=== PATIENT | male | born 1935 | race Caucasian/White ===

== ENCOUNTER → 2016-05-29 | Outpatient (CLI) | payer MEDICARE, BC ==
[2016-05-29 13:22] LABS: INR 1.7 (<1.1); Prothrombin Time 16.4 sec (9.0-12.0)
== END ==
LOC: LABWHC1 13:02
PROVIDERS: ATTEND Dentist Oral and Maxillofacial Surgery
DX: D68.9 Coagulation defect, unspecified (principal)
CPT/HCPCS: 36415; 85610

== ENCOUNTER → 2016-07-28 | Outpatient (CLI) | payer MEDICARE, BC ==
[2016-07-28 09:18] LABS: INR 1.3 (<1.1); Prothrombin Time 12.8 sec (9.0-12.0)
== END | disposition home or self-care (01) ==
LOC: LABWHC1 08:55
PROVIDERS: ATTEND Dentist Oral and Maxillofacial Surgery
DX: D68.9 Coagulation defect, unspecified (principal); Z51.81 Encounter for therapeutic drug level monitoring
CPT/HCPCS: 36415; 85610

== ENCOUNTER 2018-08-13 16:32 | Inpatient (IN) | payer MEDICARE, BC ==
--- NOTE | 2018-08-13 17:20 | ED ---
General Adult HPI - General Chief complaint: Shortness of Breath Stated complaint: Diff Breathing Time Seen by Provider: 08/13/18 17:02 Source: patient, family, RN notes reviewed, old records reviewed Mode of arrival: wheelchair Limitations: no limitations - History of Present Illness Initial comments: 83-year-old male presenting with dyspnea and need for supplemental oxygen. Patient is scheduled for an outpatient MRI of the brain and thoracic spine today. He was presenting to the emergency department with request for outpatient home O2. He has history of COPD and stage III lung cancer. He states his symptoms have been progressive over the past several weeks. He was told by [facility] that he had a portion of his right lung collapsed. He had a biopsy 3 weeks ago and initially had hemoptysis this has resolved. No fever or chills. No chest pain. - Related Data Home Medications Medication Instructions Recorded Confirmed Allopurinol [Zyloprim] 100 mg PO DAILY 07/24/15 08/13/18 Digoxin [Lanoxin] 250 mcg PO DAILY 07/24/15 08/13/18 Fluticasone/Salmeterol [Advair 1 puff INHALATION RT-BID 07/24/15 08/13/18 250-50 Diskus] Metoprolol Succinate (ER) [Toprol 50 mg PO HS 07/24/15 08/13/18 Xl] Tiotropium [place] [Spiriva] 1 puff INHALATION RT-HS 07/24/15 08/13/18 Ubidecarenone [Co Q-10] 200 mg PO HS 07/24/15 08/13/18 Warfarin Sodium 2 mg PO SUTUWETHFRSA 07/24/15 08/13/18 Carboxymethylcellulose Sodium 1 drop BOTH EYES HS 08/13/18 08/13/18 [Refresh Tears] Fluticasone Nasal [place] [Flonase 1 spray EA NOSTRIL DAILY 08/13/18 08/13/18 Nasal [place]] Losartan Potassium 100 mg PO DAILY 08/13/18 08/13/18 Simvastatin [Zocor] 20 mg PO HS 08/13/18 08/13/18 Warfarin [Coumadin] 3 mg PO MO 08/13/18 08/13/18 amLODIPine [Norvasc] 5 mg PO HS 08/13/18 08/13/18 Allergies Allergy/AdvReac Type Severity Reaction Status Date / Time Penicillins Allergy Unknown Itching Verified 08/13/18 17:21 Review of Systems ROS Statement: Those systems with pertinent positive or pertinent negative responses have been documented in the HPI. ROS Other: All systems not noted in ROS Statement are negative. Past Medical History Past Medical History: Atrial Fibrillation, Cancer, COPD, Hyperlipidemia, Hypertension, Osteoarthritis (OA), Pneumonia Additional Past Medical History / Comment(s): HX OF SKIN CANCER, GOUT, SOB WITH ACTIVITY, IRREGULAR History of Any Multi-Drug Resistant Organisms: MRSA Date of last positivie culture/infection: 2012? MDRO Source:: LEFT ELBOW Past Surgical History: Orthopedic Surgery Additional Past Surgical History / Comment(s): LEFT ELBOW SURGERY, lung/lymph biopsy Past Anesthesia/Blood Transfusion Reactions: No Reported Reaction Past Psychological History: No Psychological Hx Reported Smoking Status: Former smoker Past Alcohol Use History: None Reported Past Drug Use History: None Reported - Past Family History Father Family Medical History: Cancer Additional Family Medical History / Comment(s): LUNG & LIVER CANCER General Exam Limitations: no limitations General appearance: alert, in no apparent distress Head exam: Present: atraumatic, normocephalic Eye exam: Present: normal appearance, PERRL ENT exam: Present: normal exam Neck exam: Present: normal inspection. Absent: tenderness, meningismus Respiratory exam: Present: respiratory distress, wheezes, decreased breath sounds Cardiovascular Exam: Present: regular rate, irregular rhythm GI/Abdominal exam: Present: soft. Absent: distended, tenderness, guarding Extremities exam: Present: normal inspection, normal capillary refill. Absent: pedal edema, calf tenderness Neurological exam: Present: alert, oriented X3, CN II-XII intact. Absent: motor sensory deficit Psychiatric exam: Present: normal affect, normal mood Skin exam: Present: warm, dry, intact. Absent: cyanosis, diaphoretic Course Vital Signs 08/13/18 08/13/18 08/13/18 16:46 17:36 20:00 Temperature 98.2 F Pulse Rate 72 75 73 Respiratory 20 18 18 Rate Blood Pressure 103/69 112/65 117/63 O2 Sat by Pulse 94 L 96 91 L Oximetry EKG Findings - EKG Comments: EKG Findings:: EKG: Atrial fibrillation, low voltage no ST segment elevation. Rate is 78, QRS duration 106, QTC 371 Medical Decision Making - Medical Decision Making 83-year-old male presenting to the emergency department with dyspnea, history of lung cancer and COPD. Dyspnea has progressed over weeks. He was told to come to the emergency department with need for home oxygen. Patient has diminished breath sounds bilaterally, wheezing. Pulse oximetry is 89-92 on room air. Chest x-ray showing concern for infiltrate and recurrent tumor. He has mild leukocytosis 0.3, normal electrolytes. Patient is sent for his outpatient MRI in the emergency department, these results are pending. He will be admitted for further treatment of COPD. He will likely require home oxygen at the time of discharge. - Lab Data Result diagrams: 08/13/18 Unknown 08/13/18 Unknown Lab Results 08/13/18 08/13/18 Range/Units Unknown Unknown WBC 12.3 H (3.8-10.6) k/uL RBC 4.57 (4.30-5.90) m/uL Hgb 13.3 (13.0-17.5) gm/dL Hct 42.8 (39.0-53.0) % MCV 93.6 (80.0-100.0) fL MCH 29.2 (25.0-35.0) pg MCHC 31.2 (31.0-37.0) g/dL RDW 13.7 (11.5-15.5) % Plt Count 304 (150-450) k/uL Neutrophils % 78 % Lymphocytes % 9 % Monocytes % 9 % Eosinophils % 1 % Basophils % 0 % Neutrophils # 9.6 H (1.3-7.7) k/uL Lymphocytes # 1.1 (1.0-4.8) k/uL Monocytes # 1.1 H (0-1.0) k/uL Eosinophils # 0.1 (0-0.7) k/uL Basophils # 0.1 (0-0.2) k/uL Sodium 141 (137-145) mmol/L Potassium 4.7 (3.5-5.1) mmol/L Chloride 106 (98-107) mmol/L Carbon Dioxide 22 (22-30) mmol/L Anion Gap 13 mmol/L BUN 36 H (9-20) mg/dL Creatinine 1.20 (0.66-1.25) mg/dL Est GFR (CKD-EPI)AfAm 65 (>60 ml/min/1.73 sqM) Est GFR (CKD-EPI)NonAf 57 (>60 ml/min/1.73 sqM) Glucose 97 (74-99) mg/dL Calcium 8.9 (8.4-10.2) mg/dL Total Bilirubin 0.7 (0.2-1.3) mg/dL AST 35 (17-59) U/L ALT 40 (21-72) U/L Alkaline Phosphatase 62 (38-126) U/L Total Protein 6.5 (6.3-8.2) g/dL Albumin 3.2 L (3.5-5.0) g/dL Disposition Clinical Impression: Acute exacerbation of chronic obstructive airways disease Disposition: ADMITTED IP TO THIS [facility] Condition: Stable Is patient prescribed a controlled substance at d/c from ED?: No Referrals: Maylin Munoz DO [Primary Care Provider] - 1-2 days Decision to Admit Reason: Admit from EC Decision Date: 08/13/18 Decision Time: 20:35
[2018-08-13 17:33] LABS: Basophils # (A) 0.1 k/uL (0-0.2); Basophils % (A) 0 %; Eosinophils # (A) 0.1 k/uL (0-0.7); Eosinophils % (A) 1 %; HCT 42.8 % (39.0-53.0); HGB 13.3 gm/dL (13.0-17.5); Lymphocytes # (A) 1.1 k/uL (1.0-4.8); Lymphocytes % (A) 9 %; MCH 29.2 pg (25.0-35.0); MCHC 31.2 g/dL (31.0-37.0); MCV 93.6 fL (80.0-100.0); Mean Platelet Volume 8.1; Monocytes # (A) 1.1 k/uL (0-1.0); Monocytes % (A) 9 %; Neutrophils # (A) 9.6 k/uL (1.3-7.7); Neutrophils % (A) 78 %; Platelet Count 304 k/uL (150-450); RBC 4.57 m/uL (4.30-5.90); RDW 13.7 % (11.5-15.5); WBC 12.3 k/uL (3.8-10.6)
--- NOTE | 2018-08-13 17:37 | XR ---
EXAMINATION TYPE: XR chest 2V DATE OF EXAM: 08/13/2018 COMPARISON: 07/25/2015 HISTORY: TECHNIQUE: Frontal and lateral views of the chest are obtained. FINDINGS: There is diffuse airspace infiltrate in the right lung. There is thickening along the righ t major fissure. There is increased density at the right pulmonary hilum. Heart size is normal. There is no heart failure. Left lung is clear. There is some blunting of right costophrenic angle. IMPRESSION: Pleural thickening and infiltrate on the right side with enlargement right pulmonary hil um that appears new compared to old exam. This could relate to recurrent tumor.
[2018-08-13 18:03] LABS: Albumin 3.2 g/dL (3.5-5.0); Calcium 8.9 mg/dL (8.4-10.2); Potassium 4.7 mmol/L (3.5-5.1); Total Bilirubin 0.7 mg/dL (0.2-1.3); Total Protein 6.5 g/dL (6.3-8.2)
--- NOTE | 2018-08-13 20:05 | MR ---
EXAMINATION TYPE: MR thoracic spine wo/w con DATE OF EXAM: 08/13/2018 COMPARISON: HISTORY: Hx lung ca, Pain CONTRAST: Standard multiplanar, multisequence MRI departmental protocol utilizing 9 mL intravenous Gadavist brinda olinium contrast. FINDINGS: Thoracic vertebra have normal alignment. There is no compression fracture. Thoracic spinal cord has normal signal pattern. There is no evidence of spinal cord mass. I see no focal bone destruc tion. There is right pleural effusion. There is mixed signal 4.5 x 2.5 cm mass in the right paraspinal righ t lower lobe. Exam is limited by limited field of view and motion. The thoracic neural foramina are fairly well-maintained. The posterior elements appear intact. IMPRESSION: There is right pleural effusion. Possible mass in the right paraspinal right lower lobe. No focal bon e destruction. No fracture. No evidence of thoracic osseous metastatic disease.
--- NOTE | 2018-08-13 20:22 | MR ---
EXAMINATION TYPE: MR brain wo/w con DATE OF EXAM: 08/13/2018 COMPARISON: None HISTORY: Hx lung ca, Pain TECHNIQUE: Multiplanar, multisequence images of the brain and brainstem is performed without and with IV contras t, utilizing 9 mL intravenous Gadavist . FINDINGS: There is diffuse cerebral cortical atrophy. There is no mass effect nor midline shift. Ther e is no sign of intracranial hemorrhage. There are scattered small foci of increased signal at the gr ay-white matter junction of both cerebral hemispheres. These measure up to 5 mm in total lumbars appr oximately 15. There are more foci in the right posterior temporal lobe. The brainstem is intact. Ther e is thinning of the corpus callosum. Sella turcica appears normal. There is no evidence of cortical infarct. The contrast images show no pathologic enhancement. There is normal contrast opacification of the romina ous sinuses. There is arterial flow demonstrated in the anterior middle and posterior cerebral arteri es. Optic chiasm appears normal. IMPRESSION: Cerebral atrophy. Mild white matter changes could relate to chronic small vessel ischemia . No evidence of intracranial metastatic disease. Mild right maxillary sinusitis noted.
[2018-08-13] MEDS ORDERED: IPRATROPIUM-ALBUTEROL 3 ML NEB INHALATION PRN (20:32)
[2018-08-14] MEDS ORDERED: SODIUM CHLORIDE 0.9% 1,000 ML IV SCH (01:15)
[2018-08-14] MEDS: ATORVASTATIN 20 MG TAB PO SCH ×2 (01:16→21:38)
[2018-08-14] MEDS: IPRATROPIUM-ALBUTEROL 3 ML NEB INHALATION SCH ×4 (07:31→21:12)
[2018-08-14] MEDS ORDERED: IPRATROPIUM 0.5 MG/2.5 ML NEBU INHALATION SCH (08:00)
[2018-08-14] MEDS: AZITHROMYCIN 500 MG TAB PO SCH (08:31)
[2018-08-14] MEDS ORDERED: predniSONE 20 MG TAB PO SCH (09:00)
[2018-08-14 11:27] VITALS: BMI 24.9
[2018-08-14] MEDS ORDERED: ALPRAZolam 0.25 MG TAB PO PRN (12:12)
--- NOTE | 2018-08-14 12:16 | P.HPIM ---
History of Present Illness This is a pleasant 83 years old male with past medical history of COPD, hyperlipidemia, hypertension, atrial fibrillation on Coumadin and digoxin. Patient presents because of dyspnea for 3 weeks ago and his doctor sent him to the hospital to get oxygen. Patient was not on home oxygen and he was getting short of breath with some cough and little green phlegm. He denies chest pain. No change in urine or bowel habits. No weakness or abnormal sensation, no headache. No fever. No sick contacts. However patient has decreased appetite over the last few days and weeks. Patient is a smoker, he quit about 3 years ago but he still smokes now and then, and he was been smoking a few cigarettes over the last few weeks. He denies alcohol or illicit drugs. He follows with Dr. maki moser as oncologist, and he follows with Dr. Munoz at [facility] in the outpatient setting. Patient is afebrile and dressed Vitas looks stable. He is saturating 94% and 2 L oxygen. Showing mild leukocytosis of 12.3 K. BMP is unremarkable creatinine 1.2 liver enzymes not elevated. EKG showing atrial fibrillation with a rate of 78. He has thoracic MRI showing right pleural effusion with possible months in the right paraspinal right lower lobe, with no evidence of thoracic spine metastatic disease. Brain MRI: Cerebral atrophy, with no evidence of intracranial metastatic disease. Emergency patient was started on prednisone 40 mg daily and Zithromax. And Lipitor. Review of Systems CONSTITUTIONAL: No fever, no malaise, no fatigue. HEENT: No recent visual problems or hearing problems. Denied any sore throat. CARDIOVASCULAR: No orthopnea, PND, no palpitations, no syncope. PULMONARY: No shortness of breath, no cough, no hemoptysis. GASTROINTESTINAL: No diarrhea, no nausea, no vomiting, no abdominal pain. Normoactive bowel sounds. NEUROLOGICAL: No headaches, no weakness, no numbness. HEMATOLOGICAL: Denies any bleeding or petechiae. GENITOURINARY: Denies any burning micturition, frequency, or urgency. MUSCULOSKELETAL/RHEUMATOLOGICAL: Denies any joint pain, swelling, or any muscle pain. ENDOCRINE: Denies any polyuria or polydipsia. Past Medical History Past Medical History: Atrial Fibrillation, Cancer, COPD, Hyperlipidemia, Hypertension, Osteoarthritis (OA), Pneumonia Additional Past Medical History / Comment(s): HX OF SKIN CANCER AND LUNG CA, GOUT History of Any Multi-Drug Resistant Organisms: MRSA Date of last positivie culture/infection: 2012? MDRO Source:: LEFT ELBOW Past Surgical History: Orthopedic Surgery Additional Past Surgical History / Comment(s): LEFT ELBOW SURGERY, lung/lymph biopsy Past Anesthesia/Blood Transfusion Reactions: No Reported Reaction Past Psychological History: No Psychological Hx Reported Smoking Status: Former smoker Past Alcohol Use History: None Reported Additional Past Alcohol Use History / Comment(s): SMOKES 1PPD OR MORE. SMOKING SINCE 16 YEARS OLD- 66 YEARS. Past Drug Use History: None Reported - Past Family History Father Family Medical History: Cancer Additional Family Medical History / Comment(s): LUNG & LIVER CANCER Medications and Allergies Home Medications Medication Instructions Recorded Confirmed Type Allopurinol [Zyloprim] 100 mg PO DAILY 07/24/15 08/13/18 History Digoxin [Lanoxin] 250 mcg PO DAILY 07/24/15 08/13/18 History Fluticasone/Salmeterol [Advair 1 puff INHALATION RT-BID 07/24/15 08/13/18 History 250-50 Diskus] Metoprolol Succinate (ER) [Toprol 50 mg PO HS 07/24/15 08/13/18 History Xl] Tiotropium [place] [Spiriva] 1 puff INHALATION RT-HS 07/24/15 08/13/18 History Ubidecarenone [Co Q-10] 200 mg PO HS 07/24/15 08/13/18 History Warfarin Sodium 2 mg PO SUTUWETHFRSA 07/24/15 08/13/18 History Carboxymethylcellulose Sodium 1 drop BOTH EYES HS 08/13/18 08/13/18 History [Refresh Tears] Fluticasone Nasal [place] [Flonase 1 spray EA NOSTRIL DAILY 08/13/18 08/13/18 History Nasal [place]] Losartan Potassium 100 mg PO DAILY 08/13/18 08/13/18 History Simvastatin [Zocor] 20 mg PO HS 08/13/18 08/13/18 History Warfarin [Coumadin] 3 mg PO MO 08/13/18 08/13/18 History amLODIPine [Norvasc] 5 mg PO HS 08/13/18 08/13/18 History Allergies Allergy/AdvReac Type Severity Reaction Status Date / Time Penicillins Allergy Unknown Itching Verified 08/13/18 17:21 Physical Exam Vitals: Vital Signs Temp Pulse Pulse Resp BP BP Pulse Ox 08/14/18 11:38 86 08/14/18 11:26 80 08/14/18 07:39 88 08/14/18 07:33 85 08/14/18 05:00 98.0 F 74 16 116/61 94 L 08/14/18 01:15 80 20 08/14/18 00:03 97.3 F L 80 20 98/64 95 08/13/18 22:42 97.5 F L 77 20 121/62 96 08/13/18 20:00 73 18 117/63 91 L 08/13/18 17:36 75 18 112/65 96 08/13/18 16:46 98.2 F 72 20 103/69 94 L Intake and Output 08/13/18 08/14/18 08/14/18 22:59 06:59 14:59 Intake Total 200 Balance 200 Intake: Intake, IV Titration 200 Amount Sodium Chloride 0.9% 1, 200 000 ml @ 50 mls/hr IV . Q20H [facility] Rx#:[id number] Other: Voiding Method Toilet Toilet # Voids 1 Weight 87.997 kg 87.997 kg GENERAL: The patient is alert and oriented x3, not in any acute distress. Well developed, well nourished. HEENT: Pupils are round and equally reacting to light. EOMI. No scleral icterus. No conjunctival pallor. Normocephalic, atraumatic. No pharyngeal erythema. No thyromegaly. CARDIOVASCULAR: S1 and S2 present. No murmurs, rubs, or gallops. PULMONARY: Chest is clear to auscultation, bilateral expiratory wheezing with prolonged expiration ABDOMEN: Soft, nontender, nondistended, normoactive bowel sounds. No palpable organomegaly. MUSCULOSKELETAL: No joint swelling or deformity. EXTREMITIES: No cyanosis, clubbing, or pedal edema. NEUROLOGICAL: Gross neurological examination did not reveal any focal deficits. SKIN: No rashes. Results CBC & Chem 7: 08/13/18 Unknown 08/13/18 Unknown Labs: Abnormal Lab Results - Last 24 Hours (Table) 08/13/18 08/13/18 Range/Units Unknown Unknown WBC 12.3 H (3.8-10.6) k/uL Neutrophils # 9.6 H (1.3-7.7) k/uL Monocytes # 1.1 H (0-1.0) k/uL BUN 36 H (9-20) mg/dL Albumin 3.2 L (3.5-5.0) g/dL Thrombosis Risk Factor Assmnt - Choose All That Apply Any of the Below Risk Factors Present?: Yes Each Factor Represents 1 point: Abnormal pulmonary function (COPD) Other Risk Factors: No Other congenital or acquired thrombophilia - If yes, enter type in comment: No Thrombosis Risk Factor Assessment Total Risk Factor Score: 1 Thrombosis Risk Factor Assessment Level: Low Risk Assessment and Plan Assessment: Acute COPD exacerbation, possible pulmonary infection with pneumonia Right pleural effusion with right lower lobe paraspinal lung mass History of lung cancer, new diagnosis few weeks ago. No evidence of metastatic disease in the brain and thoracic spine per MRI testing Leukocytosis Dehydration History of atrial fibrillation on Coumadin and metoprolol Hypertension Nicotine dependence Plan: This is a pleasant 83 years old female who presents with lung cancer and COPD. Possible respiratory infection. Continue with antibiotics. Start on IV steroids. Continue with bronchodilators and oxygen. 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 Check digoxin level. adjust blood pressure medication. Xanax when necessary for anxiety. Since sputum culture. Continue with warfarin and monitor INR. Gentle hydration Labs and medication were reviewed.. Continue same treatment. Continue with symptomatic treatment. Resume home medication. Monitor lytes and vitals. DVT and GI prophylaxis. Further recommendations of the clinical course of the patient DVT prophylaxis: Subcutaneous heparin GI Prophylaxis: Pepcid PT/OT: Pending Prognosis is guarded
[2018-08-14 12:37] LABS: INR 4.9 (<1.2); Partial Thromboplastin Time 52.3 sec (22.0-30.0); Prothrombin Time 47.4 sec (9.0-12.0)
[2018-08-14] MEDS ORDERED: methylPREDNISolone SOD SUCCI 40 MG/ML 1 ML VIAL IV SCH (16:00)
[2018-08-14] MEDS ORDERED: WARFARIN 2 MG TAB PO SCH (18:00)
[2018-08-14] MEDS ORDERED: WARFARIN 0.5 MG TAB PO ONE (18:00)
[2018-08-14] MEDS ORDERED: NON-FORMULARY DRUG (Tiotropium Bromide [Spiriva] 1 PUFF) INHALATION SCH (20:00)
[2018-08-14] MEDS: METOPROLOL SUCCINATE (ER) 50 MG TAB.ER.24H PO SCH (21:38)
[2018-08-15] MEDS: IPRATROPIUM-ALBUTEROL 3 ML NEB INHALATION SCH ×4 (07:36→19:15)
[2018-08-15 07:43] LABS: Basophils % (A) 0 %; Eosinophils % (A) 0 %; HCT 37.8 % (39.0-53.0); HGB 11.8 gm/dL (13.0-17.5); Lymphocytes # (A) 0.7 k/uL (1.0-4.8); Lymphocytes % (A) 6 %; MCH 29.3 pg (25.0-35.0); MCHC 31.2 g/dL (31.0-37.0); MCV 94.2 fL (80.0-100.0); Mean Platelet Volume 8.2; Monocytes # (A) 0.7 k/uL (0-1.0); Monocytes % (A) 6 %; Neutrophils # (A) 10.1 k/uL (1.3-7.7); Neutrophils % (A) 86 %; Platelet Count 292 k/uL (150-450); RBC 4.02 m/uL (4.30-5.90); RDW 13.6 % (11.5-15.5); WBC 11.7 k/uL (3.8-10.6)
[2018-08-15 08:03] LABS: Calcium 8.5 mg/dL (8.4-10.2); Digoxin 1.4 ng/mL; INR 4.2 (<1.2); Potassium 5.2 mmol/L (3.5-5.1); Prothrombin Time 40.4 sec (9.0-12.0)
[2018-08-15] MEDS: DIGOXIN 250 MCG TAB PO SCH (08:28)
[2018-08-15] MEDS: ALLOPURINOL 100 MG TAB PO SCH (08:28)
[2018-08-15] MEDS: AZITHROMYCIN 500 MG TAB PO SCH (08:29)
[2018-08-15] MEDS: FLUTICASONE 50MCG/SPRAY NASAL 16GM EA NOSTRIL SCH (08:29)
[2018-08-15] MEDS: methylPREDNISolone SOD SUCCI 40 MG/ML 1 ML VIAL IV SCH ×2 (08:29→20:29)
--- NOTE | 2018-08-15 13:50 | P.PN ---
Subjective This is a pleasant 83 years old male with past medical history of COPD, hyperlipidemia, hypertension, atrial fibrillation on Coumadin and digoxin. Patient presents because of dyspnea for 3 weeks ago and his doctor sent him to the hospital to get oxygen. Patient was not on home oxygen and he was getting short of breath with some cough and little green phlegm. He denies chest pain. No change in urine or bowel habits. No weakness or abnormal sensation, no headache. No fever. No sick contacts. However patient has decreased appetite over the last few days and weeks. Patient is a smoker, he quit about 3 years ago but he still smokes now and then, and he was been smoking a few cigarettes over the last few weeks. He denies alcohol or illicit drugs. He follows with Dr. maki moser as oncologist, and he follows with Dr. Munoz at [facility] in the outpatient setting. Patient is afebrile and dressed Vitas looks stable. He is saturating 94% and 2 L oxygen. Showing mild leukocytosis of 12.3 K. BMP is unremarkable creatinine 1.2 liver enzymes not elevated. EKG showing atrial fibrillation with a rate of 78. He has thoracic MRI showing right pleural effusion with possible months in the right paraspinal right lower lobe, with no evidence of thoracic spine metastatic disease. Brain MRI: Cerebral atrophy, with no evidence of intracranial metastatic disease. Emergency patient was started on prednisone 40 mg daily and Zithromax. And Lipitor. 08/15/2018 Patient's a lying in bed, [place] he needs oxygen at 2 L with oxygen saturating at 94%, blood pressure 125/63, patient is afebrile. His dyspnea and coughing are improving. On examination he still have a started wheezing on both sides but is significantly improved compared to yesterday. His INR was supratherapeutic at 4.9, yesterday's 4.2, keep holding the Coumadin. Digoxin level is at 1.4 which is acceptable. Potassium is slightly elevated at 5.2 but creatinine is stable at 1.0. Patient feels generally weak, we going to ask for physical therapy evaluation area at social consult is ordered for patient might need oxygen upon discharge Review of systems CONSTITUTIONAL: No fever, no malaise, no fatigue. HEENT: No recent visual problems or hearing problems. Denied any sore throat. CARDIOVASCULAR: No orthopnea, PND, no palpitations, no syncope. PULMONARY: No shortness of breath, no cough, no hemoptysis. GASTROINTESTINAL: No diarrhea, no nausea, no vomiting, no abdominal pain. Normoactive bowel sounds. NEUROLOGICAL: No headaches, no weakness, no numbness. HEMATOLOGICAL: Denies any bleeding or petechiae. GENITOURINARY: Denies any burning micturition, frequency, or urgency. MUSCULOSKELETAL/RHEUMATOLOGICAL: Denies any joint pain, swelling, or any muscle pain. ENDOCRINE: Denies any polyuria or polydipsia. Objective - Vital Signs Vital signs: Vital Signs Temp 98.4 F 08/15/18 04:16 Pulse 80 08/15/18 11:59 Resp 16 08/15/18 04:16 BP 125/63 08/15/18 04:16 Pulse Ox 94 L 08/15/18 04:16 Intake & Output 08/14/18 08/15/18 08/15/18 18:59 06:59 18:59 Intake Total 400 Balance 400 Weight 87.997 kg Intake: Intake, IV Titration 400 Amount Sodium Chloride 0.9% 1, 400 000 ml @ 50 mls/hr IV . Q20H [facility] Rx#:[id number] Other: Voiding Method Toilet Toilet Toilet # Voids 2 - Exam GENERAL: The patient is alert and oriented x3, not in any acute distress. Well developed, well nourished. HEENT: Pupils are round and equally reacting to light. EOMI. No scleral icterus. No conjunctival pallor. Normocephalic, atraumatic. No pharyngeal erythema. No thyromegaly. CARDIOVASCULAR: S1 and S2 present. No murmurs, rubs, or gallops. -PULMONARY: Chest is clear to auscultation, bilateral expiratory wheezing with prolonged expiration, better compared to yesterday ABDOMEN: Soft, nontender, nondistended, normoactive bowel sounds. No palpable organomegaly. MUSCULOSKELETAL: No joint swelling or deformity. EXTREMITIES: No cyanosis, clubbing, or pedal edema. NEUROLOGICAL: Gross neurological examination did not reveal any focal deficits. SKIN: No rashes. - Labs CBC & Chem 7: 08/15/18 06:50 08/15/18 06:50 Labs: Abnormal Lab Results - Last 24 Hours (Table) 08/15/18 08/15/18 08/15/18 Range/Units 06:50 06:50 06:50 WBC 11.7 H (3.8-10.6) k/uL RBC 4.02 L (4.30-5.90) m/uL Hgb 11.8 L (13.0-17.5) gm/dL Hct 37.8 L (39.0-53.0) % Neutrophils # 10.1 H (1.3-7.7) k/uL Lymphocytes # 0.7 L (1.0-4.8) k/uL PT 40.4 H (9.0-12.0) sec INR 4.2 H (<1.2) Potassium 5.2 H (3.5-5.1) mmol/L Chloride 109 H (98-107) mmol/L BUN 36 H (9-20) mg/dL Glucose 110 H (74-99) mg/dL Assessment and Plan Assessment: Acute COPD exacerbation, possible pulmonary infection with pneumonia, improving Right pleural effusion with right lower lobe paraspinal lung mass History of lung cancer, new diagnosis few weeks ago. No evidence of metastatic disease in the brain and thoracic spine per MRI testing Leukocytosis Dehydration History of atrial fibrillation on Coumadin and metoprolol Hypertension Nicotine dependence Plan: This is a pleasant 83 years old female who presents with lung cancer and COPD. Possible respiratory infection. Continue with antibiotics. Start on IV steroids. Continue with bronchodilators and oxygen. 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 adjust blood pressure medication. Xanax when necessary for anxiety. Continue with warfarin and monitor INR. Gentle hydration. As for physical therapy evaluation. Labs and medication were reviewed.. Continue same treatment. Continue with symptomatic treatment. Resume home medication. Monitor lytes and vitals. DVT and GI prophylaxis. Further recommendations of the clinical course of the patient DVT prophylaxis: Subcutaneous heparin GI Prophylaxis: Pepcid PT/OT: Pending Prognosis is guarded
[2018-08-15] MEDS ORDERED: WARFARIN 0.5 MG TAB PO ONE (18:00)
[2018-08-15] MEDS: ATORVASTATIN 20 MG TAB PO SCH (20:29)
[2018-08-15] MEDS: METOPROLOL SUCCINATE (ER) 50 MG TAB.ER.24H PO SCH (20:29)
[2018-08-16 08:13] LABS: Basophils % (A) 0 %; Eosinophils # (A) 0.2 k/uL (0-0.7); Eosinophils % (A) 1 %; HCT 41.2 % (39.0-53.0); HGB 12.9 gm/dL (13.0-17.5); Hypochromasia Slight; Lymphocytes # (A) 0.6 k/uL (1.0-4.8); Lymphocytes % (A) 4 %; MCHC 31.2 g/dL (31.0-37.0); MCV 92.9 fL (80.0-100.0); Mean Platelet Volume 9.1; Monocytes # (A) 0.8 k/uL (0-1.0); Monocytes % (A) 6 %; Neutrophils % (A) 89 %; Platelet Count 298 k/uL (150-450); RBC 4.43 m/uL (4.30-5.90); RDW 13.8 % (11.5-15.5); WBC 14.6 k/uL (3.8-10.6)
[2018-08-16 08:16] LABS: INR 3.4 (<1.2); Prothrombin Time 33.2 sec (9.0-12.0)
[2018-08-16 08:30] LABS: Calcium 8.9 mg/dL (8.4-10.2); Potassium 5.6 mmol/L (3.5-5.1)
[2018-08-16] MEDS: IPRATROPIUM-ALBUTEROL 3 ML NEB INHALATION SCH ×4 (09:06→20:38)
[2018-08-16] MEDS ORDERED: SODIUM POLYSTYRENE SULFONATE 15 GM/60 ML BOTTLE PO STA (10:01)
[2018-08-16] MEDS: methylPREDNISolone SOD SUCCI 40 MG/ML 1 ML VIAL IV SCH ×2 (10:17→21:56)
[2018-08-16] MEDS: ALLOPURINOL 100 MG TAB PO SCH (10:17)
[2018-08-16] MEDS: FLUTICASONE 50MCG/SPRAY NASAL 16GM EA NOSTRIL SCH (10:18)
[2018-08-16] MEDS: DIGOXIN 250 MCG TAB PO SCH (10:18)
[2018-08-16] MEDS: AZITHROMYCIN 500 MG TAB PO SCH (10:18)
[2018-08-16] MEDS ORDERED: WARFARIN 3 MG TAB PO SCH (18:00)
[2018-08-16] MEDS ORDERED: WARFARIN 0.5 MG TAB PO ONE (18:00)
[2018-08-16] MEDS: ATORVASTATIN 20 MG TAB PO SCH (21:56)
[2018-08-16] MEDS: METOPROLOL SUCCINATE (ER) 50 MG TAB.ER.24H PO SCH (21:56)
--- NOTE | 2018-08-17 00:31 | P.PN ---
Progress Note - Text Progress Note Date: 08/16/18 Presenting complaint: Short of breath Interval history: This is a patient Diagnosed with lung cancer. Admitted with COPD exacerbation. And pneumonia Today-breathing a bit better. Up to the bathroom. Appetite improving. Slight cough. Less tired. Treatment has not be started for lung cancer. Home oxygen being arranged. Review of systems: Was done for constitutional, cardiovascular, GI, pulmonary. relevant finding as above Current medications are reviewed that included: DuoNeb, IV Solu-Medrol, azithromycin On examination: VITAL SIGNS: 97.6, 63, 18, 125-78, 94% on 2 L GENERAL APPEARANCE: Laying in bed, a bit tired appearing. HEENT: Normal external appearance of nose and ear. Oral cavity normal EYES: Pupils equal. Conjunctiva normal. NECK: JVD not raised. Mass not palpable. RESPIRATORY: Respiratory effort increased, decreased breath sounds prolonged expiration. CARDIOVASCULAR: First and second sounds normal. No edema. ABDOMEN: Soft. Liver and spleen not palpable. No tenderness. No mass palpable. PSYCHIATRY: Alert and oriented x3. Mood and affect normal. Investigations: 14.6, 12.9, potassium 5.6, creatinine 1.08 INR 3.4 Assessment: -Acute COPD exacerbation in a current smoker -Pneumonia, POA -Newly diagnosed lung cancer awaiting treatment -Acute hypoxic respiratory failure from underlying COPD and pneumonia -Persistent atrial fibrillation -Hyperlipidemia -Essential hypertension -Primary osteoarthritis -Hyperkalemia Plan: Patient given a dose of Kayexalate 30 g. Put on a low potassium diet. Spoke to the social secretary to arrange for home oxygen. Care was discussed at length with the patient and . Hoping the patient did get discharged tomorrow. Patient has a follow-up appointment per his oncologist on Thursday.
[2018-08-17 09:32] LABS: Basophils % (A) 0 %; Eosinophils % (A) 0 %; HCT 41.7 % (39.0-53.0); Lymphocytes # (A) 0.6 k/uL (1.0-4.8); Lymphocytes % (A) 5 %; MCHC 31.2 g/dL (31.0-37.0); Mean Platelet Volume 8.8; Monocytes # (A) 0.7 k/uL (0-1.0); Monocytes % (A) 5 %; Neutrophils # (A) 11.8 k/uL (1.3-7.7); Neutrophils % (A) 89 %; Platelet Count 305 k/uL (150-450); RBC 4.48 m/uL (4.30-5.90); RDW 14.2 % (11.5-15.5); WBC 13.3 k/uL (3.8-10.6)
[2018-08-17] MEDS: methylPREDNISolone SOD SUCCI 40 MG/ML 1 ML VIAL IV SCH (09:33)
[2018-08-17] MEDS: DIGOXIN 250 MCG TAB PO SCH (09:34)
[2018-08-17] MEDS: ALLOPURINOL 100 MG TAB PO SCH (09:34)
[2018-08-17] MEDS: AZITHROMYCIN 500 MG TAB PO SCH (09:34)
[2018-08-17] MEDS: FLUTICASONE 50MCG/SPRAY NASAL 16GM EA NOSTRIL SCH (09:34)
[2018-08-17 09:37] LABS: INR 2.9 (<1.2); Prothrombin Time 28.3 sec (9.0-12.0)
[2018-08-17] MEDS: IPRATROPIUM-ALBUTEROL 3 ML NEB INHALATION SCH ×2 (09:52→13:34)
[2018-08-17 09:53] LABS: Calcium 8.9 mg/dL (8.4-10.2); Potassium 4.7 mmol/L (3.5-5.1)
[2018-08-17 11:44] VITALS: BP 141/72; RESP 17; TEMP 97.7
[2018-08-17 13:38] VITALS: PULSE 80
[2018-08-17] MEDS ORDERED: WARFARIN 2 MG TAB PO ONE (18:00)
--- NOTE | 2018-08-22 00:36 | P.DS ---
Providers Date of admission: 08/15/18 14:56 Expected date of discharge: 08/17/18 Attending physician: Manuel Corey Primary care physician: Maylin Munoz [facility] Course: Presenting complaint: Short of breath Interval history: Diagnosed with lung cancer. Admitted with COPD exacerbation. And pneumonia Doing better. Relatively stable. Care was discussed. On examination: VITAL SIGNS: 97.7, 82, 17, 141/72, 93% 3 L GENERAL APPEARANCE: More comfortable. HEENT: Normal external appearance of nose and ear. Oral cavity normal EYES: Pupils equal. Conjunctiva normal. NECK: JVD not raised. Mass not palpable. RESPIRATORY: Respiratory effort increased, decreased breath sounds prolonged expiration. CARDIOVASCULAR: First and second sounds normal. No edema. ABDOMEN: Soft. Liver and spleen not palpable. No tenderness. No mass palpable. PSYCHIATRY: Alert and oriented x3. Mood and affect normal. Investigations: White count 30.3 hemoglobin 13 INR 2.9 creatinine 0.94 MRI thoracic spine showed right pleural effusion, possible mass in the right paraspinal right lower lobe MRI of the brain with and without contrast-cerebral atrophy no evidence of metastatic disease Assessment: -Acute COPD exacerbation in a current smoker -Pneumonia, POA -Newly diagnosed lung cancer awaiting treatment -Acute hypoxic respiratory failure from underlying COPD and pneumonia -Persistent atrial fibrillation -Hyperlipidemia -Essential hypertension -Primary osteoarthritis -Hyperkalemia Disposition: Home Patient Condition at Discharge: Stable Plan - Discharge Summary Discharge Rx Participant: No New Discharge Prescriptions: New predniSONE 10 mg PO DAILY #30 tab Azithromycin [Zithromax] 500 mg PO DAILY #3 tab Continue Warfarin Sodium 2 mg PO SUTUWETHFRSA Allopurinol [Zyloprim] 100 mg PO DAILY Digoxin [Lanoxin] 250 mcg PO DAILY Metoprolol Succinate (ER) [Toprol XL] 50 mg PO HS Tiotropium [place] [Spiriva] 1 puff INHALATION RT-HS Fluticasone/Salmeterol [Advair 250-50 Diskus] 1 puff INHALATION RT-BID Ubidecarenone [Co Q-10] 200 mg PO HS Fluticasone Nasal [place] [Flonase Nasal [place]] 1 spray EA NOSTRIL DAILY Warfarin [Coumadin] 3 mg PO MO amLODIPine [Norvasc] 5 mg PO HS Simvastatin [Zocor] 20 mg PO HS Carboxymethylcellulose Sodium [Refresh Tears] 1 drop BOTH EYES HS Discontinued Losartan Potassium 100 mg PO DAILY Discharge Medication List Allopurinol [Zyloprim] 100 mg PO DAILY 07/24/15 [History] Digoxin [Lanoxin] 250 mcg PO DAILY 07/24/15 [History] Fluticasone/Salmeterol [Advair 250-50 Diskus] 1 puff INHALATION RT-BID 07/24/15 [History] Metoprolol Succinate (ER) [Toprol XL] 50 mg PO HS 07/24/15 [History] Tiotropium [place] [Spiriva] 1 puff INHALATION RT-HS 07/24/15 [History] Ubidecarenone [Co Q-10] 200 mg PO HS 07/24/15 [History] Warfarin Sodium 2 mg PO SUTUWETHFRSA 07/24/15 [History] Carboxymethylcellulose Sodium [Refresh Tears] 1 drop BOTH EYES HS 08/13/18 [History] Fluticasone Nasal [place] [Flonase Nasal [place]] 1 spray EA NOSTRIL DAILY 08/13/18 [History] Simvastatin [Zocor] 20 mg PO HS 08/13/18 [History] Warfarin [Coumadin] 3 mg PO MO 08/13/18 [History] amLODIPine [Norvasc] 5 mg PO HS 08/13/18 [History] Azithromycin [Zithromax] 500 mg PO DAILY #3 tab 08/17/18 [Rx] predniSONE 10 mg PO DAILY #30 tab 08/17/18 [Rx] Follow up Appointment(s)/Referral(s): Maylin Munoz DO [Primary Care Provider] - 08/20/18 9:00 am Wally Vaughn MD [STAFF PHYSICIAN] - 08/18/18 4:15 pm Patient Instructions/Handouts: Prednisone (By mouth), Azithromycin (By mouth), Using Oxygen at Home (DC), COPD (Chronic Obstructive Pulmonary Disease) (DC) Discharge Disposition: HOME SELF-CARE
== END 2018-08-17 16:00 | disposition home or self-care (01) | DRG 193 ==
LOC: EC 16:32 → 3NMEDONC 20:32 → OBSVTOIN 08-15 14:56
PROVIDERS: ADMIT Hospitalist; ATTEND Hospitalist
DX: J18.9 Pneumonia, unspecified organism (principal); J96.01 Acute respiratory failure with hypoxia; J44.1 Chronic obstructive pulmonary disease with (acute) exacerbation; C34.90 Malignant neoplasm of unspecified part of unspecified bronchus or lung; I48.1 Persistent atrial fibrillation; J44.0 Chronic obstructive pulmonary disease with (acute) lower respiratory infection; J90 Pleural effusion, not elsewhere classified; I10 Essential (primary) hypertension; M19.91 Primary osteoarthritis, unspecified site; E78.5 Hyperlipidemia, unspecified; E86.0 Dehydration; E87.5 Hyperkalemia; F17.200 Nicotine dependence, unspecified, uncomplicated; F41.9 Anxiety disorder, unspecified; M19.90 Unspecified osteoarthritis, unspecified site; Z79.01 Long term (current) use of anticoagulants; Z79.899 Other long term (current) drug therapy; Z80.0 Family history of malignant neoplasm of digestive organs; Z85.118 Personal history of other malignant neoplasm of bronchus and lung; Z85.828 Personal history of other malignant neoplasm of skin; Z86.14 Personal history of Methicillin resistant Staphylococcus aureus infection; Z98.890 Other specified postprocedural states; Z88.0 Allergy status to penicillin
CPT/HCPCS: 36415; 70553; 71046; 72157; 80048; 80053; 80162; 85025; 85610; 85730; 87070; 87205; 93005; 94640; 94760; 99285

== ENCOUNTER 2018-08-26 12:21 | Inpatient (IN) | payer MEDICARE, BC ==
--- NOTE | 2018-08-26 13:15 | ED ---
General Adult HPI - General Chief complaint: Shortness of Breath Stated complaint: LUIS EDUARDO Time Seen by Provider: 08/26/18 12:25 Source: patient, family, RN notes reviewed Mode of arrival: wheelchair Limitations: no limitations - History of Present Illness Initial comments: This is an 83-year-old male who presents emergency Department with a history of lung cancer. Patient was scheduled today to go the radiation but he's been short of breath all morning to the point where he needs to be seen in emergency department. Patient states he has some right-sided chest pain which is been ongoing since he's been told he has cancer. Patient denies any anterior chest pain or any change in the chest pain. Patient denies any fever chills. Patient does state he is coughing but no significant sputum production. Patient denies any abdominal pain patient denies nausea or vomiting. Patient denies any swelling to legs or calf tenderness. Patient denies any lightheadedness or dizziness. - Related Data Home Medications Medication Instructions Recorded Confirmed Allopurinol [Zyloprim] 100 mg PO DAILY 07/24/15 08/26/18 Digoxin [Lanoxin] 250 mcg PO DAILY 07/24/15 08/26/18 Fluticasone/Salmeterol [Advair 1 puff INHALATION RT-BID 07/24/15 08/26/18 250-50 Diskus] Metoprolol Succinate (ER) [Toprol 50 mg PO HS 07/24/15 08/26/18 XL] Tiotropium [place] [Spiriva] 1 puff INHALATION RT-HS 07/24/15 08/26/18 Ubidecarenone [Co Q-10] 200 mg PO HS 07/24/15 08/26/18 Warfarin Sodium 2 mg PO SUTUWETHFRSA 07/24/15 08/26/18 Carboxymethylcellulose Sodium 1 drop BOTH EYES HS 08/13/18 08/26/18 [Refresh Tears] Fluticasone Nasal [place] [Flonase 1 spray EA NOSTRIL DAILY 08/13/18 08/26/18 Nasal [place]] Simvastatin [Zocor] 20 mg PO HS 08/13/18 08/26/18 Warfarin [Coumadin] 3 mg PO MO 08/13/18 08/26/18 amLODIPine [Norvasc] 5 mg PO HS 08/13/18 08/26/18 Allergies Allergy/AdvReac Type Severity Reaction Status Date / Time Penicillins Allergy Unknown Itching Verified 08/26/18 12:26 Review of Systems ROS Statement: Those systems with pertinent positive or pertinent negative responses have been documented in the HPI. ROS Other: All systems not noted in ROS Statement are negative. Past Medical History Past Medical History: Atrial Fibrillation, Cancer, COPD, Hyperlipidemia, Hypertension, Osteoarthritis (OA), Pneumonia Additional Past Medical History / Comment(s): HX OF SKIN CANCER AND LUNG CA, GOUT History of Any Multi-Drug Resistant Organisms: MRSA Date of last positivie culture/infection: 2012? MDRO Source:: LEFT ELBOW Past Surgical History: Orthopedic Surgery Additional Past Surgical History / Comment(s): LEFT ELBOW SURGERY, lung/lymph biopsy Past Anesthesia/Blood Transfusion Reactions: No Reported Reaction Past Psychological History: No Psychological Hx Reported Smoking Status: Former smoker Past Alcohol Use History: None Reported Past Drug Use History: None Reported - Past Family History Father Family Medical History: Cancer Additional Family Medical History / Comment(s): LUNG & LIVER CANCER General Exam - General Exam Comments Initial Comments: GENERAL: Patient is well-developed and well-nourished. Patient is nontoxic and well- hydrated and is in mild distress. ENT: Neck is soft and supple. No significant lymphadenopathy is noted. Oropharynx is clear. Moist mucous membranes. Neck has full range of motion without eliciting any pain. EYES: The sclera were anicteric and conjunctiva were pink and moist. Extraocular movements were intact and pupils were equal round and reactive to light. Eyelids were unremarkable. PULMONARY: Unlabored respirations. Good breath sounds bilaterally. No audible rales rhonchi or wheezing was noted. CARDIOVASCULAR: There is a regular rate and rhythm without any murmurs gallops or rubs. ABDOMEN: Soft and nontender with normal bowel sounds. SKIN: Skin is clear with no lesions or rashes and otherwise unremarkable. NEUROLOGIC: Patient is alert and oriented x3. Cranial nerves II through XII are grossly intact. Motor and sensory are also intact. Normal speech, volume and content. Symmetrical smile. MUSCULOSKELETAL: Normal extremities with adequate strength and full range of motion. No lower extremity swelling or edema. No calf tenderness. LYMPHATICS: No significant lymphadenopathy is noted PSYCHIATRIC: Normal psychiatric evaluation. Limitations: no limitations Course Vital Signs 08/26/18 12:22 Temperature 97.7 F Pulse Rate 82 Respiratory 22 Rate Blood Pressure 125/70 O2 Sat by Pulse 93 L Oximetry Medical Decision Making - Medical Decision Making EKG shows atrial fibrillation 83 bpm QRS 102 QT interval 306 QTC is 359. Patient's EKG shows some T-wave inversions in inferior leads. Shows worsening right-sided pleural effusion and worsening right and middle lobe infiltrate. - Lab Data Result diagrams: 08/26/18 12:49 08/26/18 12:49 Lab Results 08/26/18 08/26/18 08/26/18 Range/Units 12:49 12:49 12:49 WBC 20.4 H (3.8-10.6) k/uL RBC 4.90 (4.30-5.90) m/uL Hgb 14.5 (13.0-17.5) gm/dL Hct 46.4 (39.0-53.0) % MCV 94.6 (80.0-100.0) fL MCH 29.6 (25.0-35.0) pg MCHC 31.3 (31.0-37.0) g/dL RDW 15.1 (11.5-15.5) % Plt Count 279 (150-450) k/uL Neutrophils % 91 % Lymphocytes % 3 % Monocytes % 5 % Eosinophils % 0 % Basophils % 0 % Neutrophils # 18.6 H (1.3-7.7) k/uL Lymphocytes # 0.6 L (1.0-4.8) k/uL Monocytes # 1.0 (0-1.0) k/uL Eosinophils # 0.0 (0-0.7) k/uL Basophils # 0.0 (0-0.2) k/uL PT 67.6 H (9.0-12.0) sec INR 7.0 H* (<1.2) APTT 64.5 H (22.0-30.0) sec D-Dimer 0.32 (<0.60) mg/L FEU Sodium 141 (137-145) mmol/L Potassium 5.7 H (3.5-5.1) mmol/L Chloride 106 (98-107) mmol/L Carbon Dioxide 26 (22-30) mmol/L Anion Gap 9 mmol/L BUN 47 H (9-20) mg/dL Creatinine 0.86 (0.66-1.25) mg/dL Est GFR (CKD-EPI)AfAm >90 (>60 ml/min/1.73 sqM) Est GFR (CKD-EPI)NonAf 82 (>60 ml/min/1.73 sqM) Glucose 111 H (74-99) mg/dL Calcium 10.8 H (8.4-10.2) mg/dL Total Bilirubin 0.5 (0.2-1.3) mg/dL AST 39 (17-59) U/L ALT 59 (21-72) U/L Alkaline Phosphatase 62 (38-126) U/L Troponin I (0.000-0.034) ng/mL NT-Pro-B Natriuret Pep pg/mL Total Protein 5.9 L (6.3-8.2) g/dL Albumin 2.8 L (3.5-5.0) g/dL 08/26/18 08/26/18 Range/Units 12:49 12:49 WBC (3.8-10.6) k/uL RBC (4.30-5.90) m/uL Hgb (13.0-17.5) gm/dL Hct (39.0-53.0) % MCV (80.0-100.0) fL MCH (25.0-35.0) pg MCHC (31.0-37.0) g/dL RDW (11.5-15.5) % Plt Count (150-450) k/uL Neutrophils % % Lymphocytes % % Monocytes % % Eosinophils % % Basophils % % Neutrophils # (1.3-7.7) k/uL Lymphocytes # (1.0-4.8) k/uL Monocytes # (0-1.0) k/uL Eosinophils # (0-0.7) k/uL Basophils # (0-0.2) k/uL PT (9.0-12.0) sec INR (<1.2) APTT (22.0-30.0) sec D-Dimer (<0.60) mg/L FEU Sodium (137-145) mmol/L Potassium (3.5-5.1) mmol/L Chloride (98-107) mmol/L Carbon Dioxide (22-30) mmol/L Anion Gap mmol/L BUN (9-20) mg/dL Creatinine (0.66-1.25) mg/dL Est GFR (CKD-EPI)AfAm (>60 ml/min/1.73 sqM) Est GFR (CKD-EPI)NonAf (>60 ml/min/1.73 sqM) Glucose (74-99) mg/dL Calcium (8.4-10.2) mg/dL Total Bilirubin (0.2-1.3) mg/dL AST (17-59) U/L ALT (21-72) U/L Alkaline Phosphatase (38-126) U/L Troponin I 0.023 (0.000-0.034) ng/mL NT-Pro-B Natriuret Pep 1370 pg/mL Total Protein (6.3-8.2) g/dL Albumin (3.5-5.0) g/dL Disposition Clinical Impression: Coagulopathy, Hyperkalemia, Pneumonia Disposition: ADMITTED IP TO THIS HOSP Is patient prescribed a controlled substance at d/c from ED?: No Referrals: Maylin Munoz DO [Primary Care Provider] - 1-2 days Time of Disposition: 14:45
[2018-08-26 13:22] LABS: Basophils % (A) 0 %; Eosinophils % (A) 0 %; HCT 46.4 % (39.0-53.0); HGB 14.5 gm/dL (13.0-17.5); Lymphocytes # (A) 0.6 k/uL (1.0-4.8); Lymphocytes % (A) 3 %; MCH 29.6 pg (25.0-35.0); MCHC 31.3 g/dL (31.0-37.0); MCV 94.6 fL (80.0-100.0); Mean Platelet Volume 8.9; Monocytes % (A) 5 %; Neutrophils # (A) 18.6 k/uL (1.3-7.7); Neutrophils % (A) 91 %; Platelet Count 279 k/uL (150-450); RDW 15.1 % (11.5-15.5); WBC 20.4 k/uL (3.8-10.6)
[2018-08-26 13:30] LABS: ALT 59 U/L (21-72); AST 39 U/L (17-59); African American GFR (CKD) >90 (>60 ml/min/1.73 sqM); Albumin 2.8 g/dL (3.5-5.0); Alkaline Phosphatase 62 U/L (38-126); Anion Gap 9 mmol/L; Blood Urea Nitrogen 47 mg/dL (9-20); Calcium 10.8 mg/dL (8.4-10.2); Carbon Dioxide 26 mmol/L (22-30); Chloride 106 mmol/L (98-107); Glucose 111 mg/dL (74-99); Potassium 5.7 mmol/L (3.5-5.1); Sodium 141 mmol/L (137-145); Total Bilirubin 0.5 mg/dL (0.2-1.3); Total Protein 5.9 g/dL (6.3-8.2)
--- NOTE | 2018-08-26 13:54 | XR ---
EXAMINATION TYPE: XR chest 2V DATE OF EXAM: 08/26/2018 COMPARISON: Chest CT July 25, 2015. Chest x-ray August 13, 2018. HISTORY: Difficulty in breathing, history of lung cancer. TECHNIQUE: Frontal and lateral views of the chest are obtained. FINDINGS: There is redemonstration of background chronic emphysematous change. . There is small righ t pleural effusion increased in size from prior study with fluid layering in the major fissure. There is worsening right mid and lower lung opacity with hilar masslike consolidation, some hilar retracti on with juxtaphrenic peaking is redemonstrated in the right lung suggesting volume loss. Some new pat eldon left basilar opacity near heart borders now present. The cardiac silhouette size remain within no rmal limits. The osseous structures are intact. IMPRESSION: Chronic emphysematous change with worsening small right pleural effusion. Worsening righ t mid to lower lung edema and/or infiltrate. New patchy left lower lobe infiltrate and/or atelectasis . Possible new right hilar mass, consider CT follow-up.
[2018-08-26 13:55] LABS: D-Dimer 0.32 mg/L FEU (<0.60); Prothrombin Time 67.6 sec (9.0-12.0)
[2018-08-26 14:09] LABS: Partial Thromboplastin Time 64.5 sec (22.0-30.0)
[2018-08-26] MEDS ORDERED: SODIUM CHLORIDE 0.9% 1,000 ML IV ONE (14:29)
[2018-08-26] MEDS ORDERED: cefTRIAXone IN SWFI 1,000 MG/10 ML SYRINGE IVP STA (14:29)
[2018-08-26] MEDS ORDERED: AZITHROMYCIN 500 MG in SODIUM CHLORIDE 0.9% 250 ML IVPB STA (14:46)
[2018-08-26] MEDS ORDERED: PNEUMONIA PROTOCOL UTILIZED 1 EACH MISC PO PRN (14:46)
[2018-08-26] MEDS: ALBUTEROL NEBULIZED 2.5 MG/3 ML INHALATION SCH ×2 (16:56→20:08)
[2018-08-26] MEDS: IPRATROPIUM-ALBUTEROL 3 ML NEB INHALATION SCH ×2 (17:02→20:32)
[2018-08-26] MEDS ORDERED: NON-FORMULARY DRUG (Tiotropium Bromide [Spiriva] 1 PUFF) INHALATION SCH (20:00)
[2018-08-26] MEDS: SYMBICORT 80-4.5 MCG INHALER INHALATION SCH (20:35)
[2018-08-26] MEDS ORDERED: NON-FORMULARY DRUG (Ubidecarenone [Co Q-10] 200 MG) PO SCH (21:00)
[2018-08-26] MEDS: ARTIFICIAL TEARS-HYPROMELLOSE DROPS 15 ML BTL BOTH EYES SCH (21:58)
[2018-08-26] MEDS: ATORVASTATIN 10 MG TAB PO SCH (22:02)
[2018-08-26] MEDS: METOPROLOL SUCCINATE (ER) 50 MG TAB.ER.24H PO SCH (22:02)
[2018-08-26] MEDS: amLODIPine 5 MG TAB PO SCH (22:02)
[2018-08-27] MEDS: SYMBICORT 80-4.5 MCG INHALER INHALATION SCH (08:19)
[2018-08-27] MEDS: IPRATROPIUM-ALBUTEROL 3 ML NEB INHALATION SCH ×5 (08:19→20:20)
[2018-08-27] MEDS: ALLOPURINOL 100 MG TAB PO SCH (08:20)
[2018-08-27] MEDS: DIGOXIN 250 MCG TAB PO SCH (08:21)
[2018-08-27] MEDS: FLUTICASONE 50MCG/SPRAY NASAL 16GM EA NOSTRIL SCH (08:22)
--- NOTE | 2018-08-27 09:09 | XR ---
EXAMINATION TYPE: XR chest 2V DATE OF EXAM: 08/27/2018 COMPARISON: 08/26/2018 TECHNIQUE: PA and lateral views submitted. HISTORY: Shortness of breath FINDINGS: Heart size stable. There is bilateral consolidation and pleural effusion with right hilar mass or sof t tissue prominence. Interstitial changes are seen. There is right apical pleural thickening. Left hi lum also prominent. IMPRESSION: 1. COPD with bilateral infiltrate greater on the right with small effusions. Differential diagnosis i ncludes asymmetric pulmonary edema versus pneumonia. 2. Bilateral hilar enlargement correlate with CT scan to assess for adenopathy or mass.
[2018-08-27 09:40] LABS: INR 8.8 (<1.2)
[2018-08-27] MEDS ORDERED: IPRATROPIUM-ALBUTEROL 3 ML NEB INHALATION PRN (10:02)
--- NOTE | 2018-08-27 10:55 | P.CNPUL ---
History of Present Illness Consult date: 08/27/18 Requesting physician: Manuel Corey Reason for consult: dyspnea, abnormal CXR/CT Chief complaint: Shortness of breath, cough, congestion History of present illness: This is a very pleasant 83-year-old gentleman who follows with Dr. Munoz as his primary care physician. 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 Has has significant COPD treated with Advair, Spiriva, albuterol and had been seen by our group back in 2016 was noted to have abnormal CAT scan. He had undergone bronchoscopy with biopsies which were negative for malignancy. Still concerned regarding possible cancer he was referred to Dr. Oni Pond at [facility] at which time he had undergone a right-sided VATS procedure with wedge resection and mediastinal lymph node biopsies. The results of that were consistent with inflammation and suspected pseudotumor. He had been undergoing serial follow-up chest x-rays through them and there was continued suspicion for lung cancer. 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 He was just to start his initial treatment with chemo and radiation here at [facility] yesterday but has been having issues with ongoing and worsening shortness of breath over the past month and presented here to the emergency room for the same. Of note, he was admitted here earlier this same month for COPD exacerbation. He was not seen by pulmonary at that time. Discharged home on 08/17/2018 on azithromycin and a prednisone taper. Chest x-ray reveals evidence of COPD with bilateral infiltrates right greater than left and small effusions. There is also bilateral hilar enlargement with evidence of adenopathy. He is requiring 5 L high flow nasal cannula to maintain O2 saturations in the 90s. White count 20.4. Hemoglobin 14.5. Platelet count 279,000. INR 8.8. ProBNP 1370. Initial lactic 2.5, currently 2.0. Creatinine 0.86. He has been initiated and DuoNeb inhalations, Pulmicort and Perforomist inhalations, IV Solu-Medrol. He is on antibiotics in the form of ceftriaxone and azithromycin. Review of Systems REVIEW OF SYSTEMS: CONSTITUTIONAL: Positive for weight loss. EYES: Denies change in vision. EARS, NOSE, MOUTH, THROAT: Denies headaches, denies sore throat. CARDIOVASCULAR: Denies chest pain, palpitations or syncopal episodes. RESPIRATORY: Positive for shortness of breath, cough, congestion no hemoptysis. GASTROINTESTINAL: Denies change in appetite, denies abdominal pain GENITOURINARY: Denies hematuria, denies infections. MUSKULOSKELETAL: Denies pain, denies swelling. INTEGUMENTARY: Denies rash, denies eczema. NEUROLOGICAL: Denies recent memory loss, no recent seizure activity. PSYCHIATRIC: Denies anxiety, denies depression. HEMATOLOGIC/LYMPHATIC: Denies anemia, denies enlarged lymph nodes. Past Medical History Past Medical History: Atrial Fibrillation, Cancer, COPD, Hyperlipidemia, Hypertension, Osteoarthritis (OA), Pneumonia Additional Past Medical History / Comment(s): Recent diagnosis of stage III squamous cell carcinoma. History of skin cancer. Gout. History of Any Multi-Drug Resistant Organisms: MRSA Date of last positivie culture/infection: 2012 MDRO Source:: LEFT ELBOW Past Surgical History: Orthopedic Surgery Additional Past Surgical History / Comment(s): LEFT ELBOW SURGERY, lung/lymph biopsy Past Anesthesia/Blood Transfusion Reactions: No Reported Reaction Past Psychological History: No Psychological Hx Reported Smoking Status: Former smoker Past Alcohol Use History: None Reported Additional Past Alcohol Use History / Comment(s): SMOKES 1PPD OR MORE. SMOKING SINCE 16 YEARS OLD- 66 YEARS. Past Drug Use History: None Reported - Past Family History Father Family Medical History: Cancer Additional Family Medical History / Comment(s): LUNG & LIVER CANCER Medications and Allergies Home Medications Medication Instructions Recorded Confirmed Type Allopurinol [Zyloprim] 100 mg PO DAILY 07/24/15 08/26/18 History Digoxin [Lanoxin] 250 mcg PO DAILY 07/24/15 08/26/18 History Fluticasone/Salmeterol [Advair 1 puff INHALATION RT-BID 07/24/15 08/26/18 History 250-50 Diskus] Metoprolol Succinate (ER) [Toprol 50 mg PO HS 07/24/15 08/26/18 History XL] Tiotropium [place] [Spiriva] 1 puff INHALATION RT-HS 07/24/15 08/26/18 History Ubidecarenone [Co Q-10] 200 mg PO HS 07/24/15 08/26/18 History Warfarin Sodium 2 mg PO SUTUWETHFRSA 07/24/15 08/26/18 History Carboxymethylcellulose Sodium 1 drop BOTH EYES HS 08/13/18 08/26/18 History [Refresh Tears] Fluticasone Nasal [place] [Flonase 1 spray EA NOSTRIL DAILY 08/13/18 08/26/18 History Nasal [place]] Simvastatin [Zocor] 20 mg PO HS 08/13/18 08/26/18 History Warfarin [Coumadin] 3 mg PO MO 08/13/18 08/26/18 History amLODIPine [Norvasc] 5 mg PO HS 08/13/18 08/26/18 History Allergies Allergy/AdvReac Type Severity Reaction Status Date / Time Penicillins Allergy Unknown Itching Verified 08/26/18 12:26 Physical Exam Vitals: Vital Signs Temp Pulse Pulse Resp BP BP Pulse Ox 08/27/18 08:30 88 08/27/18 08:20 84 08/27/18 08:00 78 18 106/61 92 L 08/27/18 04:00 97.7 F 74 18 118/60 90 L 08/27/18 00:00 97.8 F 77 18 120/61 96 08/26/18 21:47 97.6 F 76 18 120/60 93 L 08/26/18 21:20 97.9 F 89 22 120/55 94 L 08/26/18 20:45 76 08/26/18 20:35 75 08/26/18 19:25 98.3 F 82 18 126/64 93 L 08/26/18 17:40 93 L 08/26/18 17:18 80 08/26/18 17:03 82 08/26/18 17:00 81 18 141/71 91 L 08/26/18 16:30 78 18 125/65 92 L 08/26/18 15:37 78 19 122/65 96 08/26/18 12:22 97.7 F 82 22 125/70 93 L Intake and Output 08/26/18 08/27/18 08/27/18 22:59 06:59 14:59 Intake Total 100 340 Balance 100 340 Intake: Oral 100 340 Other: Voiding Method Urinal Weight 80.9 kg GENERAL EXAM: Very pleasant 83-year-old gentleman. Alert, comfortable in no apparent distress. On 5 L high flow nasal cannula. HEAD: Normocephalic. EYES: Normal reaction of pupils, equal size. NOSE: Clear with pink turbinates. THROAT: No erythema or exudates. NECK: No masses, no JVD. CHEST: No chest wall deformity. LUNGS: Equal air entry few scattered rhonchi bilaterally. CVS: S1 and S2 normal with no audible murmur, irregular rhythm. ABDOMEN: No hepatosplenomegaly, normal bowel sounds, no guarding or rigidity. SPINE: No scoliosis or deformity SKIN: No rashes CENTRAL NERVOUS SYSTEM: No focal deficits, tone is normal in all 4 extremities. EXTREMITIES: There is no peripheral edema. No clubbing, no cyanosis. Perip heral pulses are intact. Results - Laboratory Findings CBC and BMP: 08/26/18 12:49 08/26/18 12:49 PT/INR, D-dimer PT 86.0 sec (9.0-12.0) H 08/27/18 08:07 INR 8.8 (<1.2) H* 08/27/18 08:07 D-Dimer 0.32 mg/L FEU (<0.60) 08/26/18 12:49 Abnormal lab findings: Abnormal Labs 08/26/18 08/26/18 08/26/18 12:49 12:49 12:49 WBC 20.4 H Neutrophils # 18.6 H Lymphocytes # 0.6 L PT 67.6 H INR 7.0 H* APTT 64.5 H Potassium 5.7 H BUN 47 H Glucose 111 H Plasma Lactic Acid Rk Calcium 10.8 H Total Protein 5.9 L Albumin 2.8 L 08/26/18 08/27/18 12:49 08:07 WBC Neutrophils # Lymphocytes # PT 86.0 H INR 8.8 H* APTT Potassium BUN Glucose Plasma Lactic Acid Rk 2.5 H* Calcium Total Protein Albumin - Diagnostic Findings Chest x-ray: image reviewed Assessment and Plan Assessment: Impression: #1 Acute on chronic hypoxic respiratory failure secondary to an acute exacerbation of chronic obstructive pulmonary disease complicated by post obstructive right lung pneumonia. #2 Recent diagnosis of stage III lung cancer, squamous cell carcinoma. #3 Chronic obstructive pulmonary disease. #4 Chronic heavy tobacco dependence, has since quit. #5 Hyperlipidemia. #6 Hypertension. #7 Atrial fibrillation, anticoagulated with warfarin, supra therapeutic. #8 Osteoarthritis. #9 History of MRSA infection of the left elbow. Plan: The patient was seen and evaluated by Dr. Salas. Chest x-ray and labs were reviewed. We'll continue with his current medications for now including DuoNeb inhalations, Pulmicort and Perforomist inhalations, IV Solu-Medrol. Currently on antibiotics in the form of ceftriaxone and azithromycin. Titrate down the F iO2 as tolerated. No active bleeding. We'll allow the INR to drift down. Warfarin obviously on hold. We will continue to follow and make further recommendations based on his clinical status. I, the cosigning physician, performed a history & physical examination of the patient. Lungs sounds bilateral scattered rhonchi Maintaining good O2 saturations in the 90s on 5 L high flow nasal cannula. I discussed the assessment and plan of care with my nurse practitioner, Tiffany Taylor. I attest to the above consultation as dictated by her. Time with Patient: Greater than 30
[2018-08-27 11:15] LABS: African American GFR (CKD) >90 (>60 ml/min/1.73 sqM); Anion Gap 4 mmol/L; Blood Urea Nitrogen 45 mg/dL (9-20); Calcium 10.4 mg/dL (8.4-10.2); Carbon Dioxide 26 mmol/L (22-30); Chloride 108 mmol/L (98-107); Glucose 99 mg/dL (74-99); Potassium 5.4 mmol/L (3.5-5.1); Sodium 138 mmol/L (137-145)
[2018-08-27 11:22] LABS: Basophils % (A) 0 %; Eosinophils % (A) 0 %; HCT 43.6 % (39.0-53.0); HGB 13.5 gm/dL (13.0-17.5); Hypochromasia Slight; Lymphocytes # (A) 0.6 k/uL (1.0-4.8); Lymphocytes % (A) 4 %; MCH 29.6 pg (25.0-35.0); MCV 95.6 fL (80.0-100.0); Monocytes # (A) 1.2 k/uL (0-1.0); Monocytes % (A) 7 %; Neutrophils # (A) 15.5 k/uL (1.3-7.7); Neutrophils % (A) 89 %; Platelet Count 240 k/uL (150-450); RBC 4.56 m/uL (4.30-5.90); RDW 14.5 % (11.5-15.5); WBC 17.4 k/uL (3.8-10.6)
[2018-08-27] MEDS ORDERED: PHYTONADIONE 2.5 MG in SODIUM CHLORIDE 0.9% 50 ML IVPB STA (11:26)
[2018-08-27] MEDS: methylPREDNISolone SOD SUCCI 125 MG/2 ML VIAL IV SCH ×3 (12:09→23:37)
[2018-08-27] MEDS: INSULIN ASPART (NovoLOG) 100 UNIT/ML VIAL SQ SCH ×3 (12:10→21:49)
[2018-08-27 12:22] LABS: Glucose,Whole Blood 89 mg/dL (75-99)
--- NOTE | 2018-08-27 14:50 | P.CONS ---
<Veronique Lim - Last Filed: 08/27/18 14:54> History of Present Illness - Reason for Consult Consult date: 08/27/18 Lung cancer Requesting physician: Rashi Cronin - Chief Complaint SOB - History of Present Illness Riky presented with progressive cough and SOB X 3-4. In 2016 he was found to have concerning lung nodule, although repeated biopsies revealed inflammation and negative malignancy. Despite the biopsies he was still referred to [facility] with Dr. Delvalle and underwent Right VATS and mediastinal biopsy at that time still non-diagnostic for cancer. Overpast years remained on very close obserbation and serial xrays/CTS, until recently whem symptoms had progressively became worse. CT Scan of chest suggestive of RUL 1.8cm lesion, Bronchoscopy with Bx 07/24/[address] Hood was negative. He was refered to Dr Delvalle at [facility] where he had Bronchoscopy on 07/28/18, had Mata needle Bx of R11 LN which was + for metastatic Squamous cell Ca, recent PET Scan revealed bilateral mediastinal and supraclavicular Lymphadenopathy, as well as, T12 vertebral body. He is C/O increasing mid back pain X 3-4 months. Riky smoked 2 PPD , quit 3 years ago when he had RML by Dr Delvalle at [facility] (Benign findings), he denies ETOH use. No family history of malignancy. 08/18/18: Was recently hospitalized at [facility] with increased SOB, started on steroids and "breathing treatments" > feels better. MRI of head negative, MRI of spine negative for bone mets. PD-L1 2% and gardant-360 study without targetable genes. He was scheduled to start weekly carboplatin and XRT on 08.26.18 as outpatient although with increased shortness of breath re-presented to the hospital. He was recently discharged on steroids and antibiotics for exacerbation of copd on 08.17.18. Pulmonology is following. Known hx afib on anticoagulation with war farin. Review of Systems A 14 point review of systems assessed and completed and all negative except HPI Past Medical History Past Medical History: Atrial Fibrillation, Cancer, COPD, Hyperlipidemia, Hypertension, Osteoarthritis (OA), Pneumonia Additional Past Medical History / Comment(s): Recent diagnosis of stage III squamous cell carcinoma. History of skin cancer. Gout. History of Any Multi-Drug Resistant Organisms: MRSA Year Discovered:: 2012 MDRO Source:: LEFT ELBOW Past Surgical History: Orthopedic Surgery Additional Past Surgical History / Comment(s): LEFT ELBOW SURGERY, lung/lymph biopsy Past Anesthesia/Blood Transfusion Reactions: No Reported Reaction Past Psychological History: No Psychological Hx Reported Smoking Status: Former smoker Past Alcohol Use History: None Reported Additional Past Alcohol Use History / Comment(s): SMOKES 1PPD OR MORE. SMOKING SINCE 16 YEARS OLD- 66 YEARS. Past Drug Use History: None Reported - Past Family History Father Family Medical History: Cancer Additional Family Medical History / Comment(s): LUNG & LIVER CANCER Medications and Allergies Home Medications Medication Instructions Recorded Confirmed Type Allopurinol [Zyloprim] 100 mg PO DAILY 07/24/15 08/26/18 History Digoxin [Lanoxin] 250 mcg PO DAILY 07/24/15 08/26/18 History Fluticasone/Salmeterol [Advair 1 puff INHALATION RT-BID 07/24/15 08/26/18 History 250-50 Diskus] Metoprolol Succinate (ER) [Toprol 50 mg PO HS 07/24/15 08/26/18 History XL] Tiotropium [place] [Spiriva] 1 puff INHALATION RT-HS 07/24/15 08/26/18 History Ubidecarenone [Co Q-10] 200 mg PO HS 07/24/15 08/26/18 History Warfarin Sodium 2 mg PO SUTUWETHFRSA 07/24/15 08/26/18 History Carboxymethylcellulose Sodium 1 drop BOTH EYES HS 08/13/18 08/26/18 History [Refresh Tears] Fluticasone Nasal [place] [Flonase 1 spray EA NOSTRIL DAILY 08/13/18 08/26/18 History Nasal [place]] Simvastatin [Zocor] 20 mg PO HS 08/13/18 08/26/18 History Warfarin [Coumadin] 3 mg PO MO 08/13/18 08/26/18 History amLODIPine [Norvasc] 5 mg PO HS 08/13/18 08/26/18 History Allergies Allergy/AdvReac Type Severity Reaction Status Date / Time Penicillins Allergy Unknown Itching Verified 08/26/18 12:26 Physical Exam Vitals: Vital Signs Temp Pulse Pulse Resp BP BP Pulse Ox 08/27/18 13:20 90 08/27/18 13:08 90 08/27/18 11:59 98.1 F 70 18 128/66 90 L 08/27/18 08:30 88 08/27/18 08:20 84 08/27/18 08:00 78 18 106/61 92 L 08/27/18 04:00 97.7 F 74 18 118/60 90 L 08/27/18 00:00 97.8 F 77 18 120/61 96 08/26/18 21:47 97.6 F 76 18 120/60 93 L 08/26/18 21:20 97.9 F 89 22 120/55 94 L 08/26/18 20:45 76 08/26/18 20:35 75 08/26/18 19:25 98.3 F 82 18 126/64 93 L 08/26/18 17:40 93 L 08/26/18 17:18 80 08/26/18 17:03 82 08/26/18 17:00 81 18 141/71 91 L 08/26/18 16:30 78 18 125/65 92 L 08/26/18 15:37 78 19 122/65 96 Intake and Output 08/26/18 08/27/18 08/27/18 22:59 06:59 14:59 Intake Total 100 340 Balance 100 340 Intake: Oral 100 340 Other: Voiding Method Urinal Weight 80.9 kg 80.9 kg Gen: Alert and oriented mild increased distress Head: NCNT Mouth Dry NC oxygen Lungs: Diminished throughout Heart: IRr, Irr Abdomen: S/ND/ NT Extremities: No edema, evidence of muscle waste Psych: Calm. Results CBC & Chem 7: 08/27/18 08:07 08/27/18 08:07 Labs: Abnormal Lab Results - Last 24 Hours (Table) 08/26/18 08/27/18 08/27/18 Range/Units 12:49 08:07 08:07 WBC 17.4 H (3.8-10.6) k/uL Neutrophils # 15.5 H (1.3-7.7) k/uL Lymphocytes # 0.6 L (1.0-4.8) k/uL Monocytes # 1.2 H (0-1.0) k/uL PT 86.0 H (9.0-12.0) sec INR 8.8 H* (<1.2) Potassium (3.5-5.1) mmol/L Chloride (98-107) mmol/L BUN (9-20) mg/dL Plasma Lactic Acid Rk 2.5 H* (0.7-2.0) mmol/L Calcium (8.4-10.2) mg/dL 08/27/18 Range/Units 08:07 WBC (3.8-10.6) k/uL Neutrophils # (1.3-7.7) k/uL Lymphocytes # (1.0-4.8) k/uL Monocytes # (0-1.0) k/uL PT (9.0-12.0) sec INR (<1.2) Potassium 5.4 H (3.5-5.1) mmol/L Chloride 108 H (98-107) mmol/L BUN 45 H (9-20) mg/dL Plasma Lactic Acid Rk (0.7-2.0) mmol/L Calcium 10.4 H (8.4-10.2) mg/dL Chest x-ray: report reviewed Assessment and Plan (1) Squamous cell lung cancer Current Visit: Yes Status: Acute Code(s): C34.90 - MALIGNANT NEOPLASM OF UNSP PART OF UNSP BRONCHUS OR LUNG SNOMED Code(s): 328192134 (2) Hyperkalemia Current Visit: Yes Status: Acute Code(s): E87.5 - HYPERKALEMIA SNOMED Code(s): 45855419 (3) Pneumonia Current Visit: Yes Status: Acute Code(s): J18.9 - PNEUMONIA, UNSPECIFIED ORGANISM SNOMED Code(s): 932326950 (4) Acute exacerbation of chronic obstructive airways disease Current Visit: No Status: Acute Code(s): J44.1 - CHRONIC OBSTRUCTIVE PULMONARY DISEASE W (ACUTE) EXACERBATION SNOMED Code(s): 739894511 Plan: Assessment and recommendations: Non-Small Cell Lung Cancer: Stage III (Recent Diagnosis): - Treatment plan was XRT and CHemotherapy concurrent to begin 08.26.18 - Did not begin due to hospitalization - Will have Radiation oncology on board while hospitalized Exacerbation COPD: Recurrent: - Pulmonology Following Acute on Chronic Respiratory Failure: - On 5L NC - WOrsening with Exacerbation COPD and treatment need lung cancer Atrial Fibrillation: - Warfarin per Cardiology - AC on hold for Coagulopathy Coumadin Coagulaopathy - INR 8.8 today - Rec Vitamin K and continue hold Warfarin - Secondary to decreased PO intake. Hypercalcemia/Hypekalemia: - Secondary to dehydration - IVF - Monitoring - Primary Team Continue current supportive care and plan to initate treatment as outpatient when discharged Rec PT/OT to maintain performance and stamina <Norberto Velasco - Last Filed: 08/27/18 17:29> History of Present Illness - History of Present Illness On admission chest x-ray noted small bilateral pleural effusions, as well as bilateral lung infiltrates, greater on the right than the left. In addition he had called neuropathy due to Coumadin, with INR greater than 8. He denied any obvious bleeding and hemoglobin is stable. Consult was therefore placed a further evaluation and recommendations Review of Systems Constitutional: Reports chronic pain, Reports fatigue, Reports poor appetite, Reports weakness Eyes: denies blurred vision, denies pain Ears: deny: decreased hearing, ear discharge, earache, tinnitus Ears, nose, mouth and throat: Denies headache, Denies sore throat Cardiovascular: Reports shortness of breath Respiratory: Reports dyspnea, Reports wheezing Gastrointestinal: Reports bloating, Reports constipation, Reports loss of appet ite Genitourinary: Reports as per HPI Musculoskeletal: Reports as per HPI (Mid back pain), Reports muscle weakness Integumentary: Denies pruritus, Denies rash Neurological: Reports weakness Psychiatric: Denies anxiety, Denies depression Endocrine: Reports fatigue, Reports weight change Hematologic/Lymphatic: Reports as per HPI Physical Exam Vitals: Vital Signs Temp Pulse Pulse Resp BP BP Pulse Ox 08/27/18 16:54 92 08/27/18 16:35 92 92 L 08/27/18 15:58 98.8 F 86 18 120/61 93 L 08/27/18 13:20 90 08/27/18 13:08 90 08/27/18 11:59 98.1 F 70 18 128/66 90 L 08/27/18 08:30 88 08/27/18 08:20 84 08/27/18 08:00 78 18 106/61 92 L 08/27/18 04:00 97.7 F 74 18 118/60 90 L 08/27/18 00:00 97.8 F 77 18 120/61 96 08/26/18 21:47 97.6 F 76 18 120/60 93 L 08/26/18 21:20 97.9 F 89 22 120/55 94 L 08/26/18 20:45 76 08/26/18 20:35 75 08/26/18 19:25 98.3 F 82 18 126/64 93 L 08/26/18 17:40 93 L Intake and Output 08/27/18 08/27/18 08/27/18 06:59 14:59 22:59 Intake Total 100 340 100 Balance 100 340 100 Intake: Oral 100 340 100 Other: Voiding Method Urinal Weight 80.9 kg 80.9 kg - Constitutional General appearance: mild distress - EENT Eyes: EOMI, PERRLA ENT: hearing grossly normal, normal oropharynx - Neck Neck: no lymphadenopathy Thyroid: bilateral: normal size - Respiratory Respiratory: bilateral: diminished, prolonged expiration - Cardiovascular Rhythm: irregularly irregular Heart sounds: normal: S1, S2 - Gastrointestinal General gastrointestinal: decreased bowel sounds, distended, soft - Integumentary Integumentary: normal - Neurologic Neurologic: CNII-XII intact - Musculoskeletal Musculoskeletal: generalized weakness, strength equal bilaterally - Psychiatric Psychiatric: A&O x's 3, appropriate affect Results CBC & Chem 7: 08/27/18 08:07 08/27/18 08:07 Labs: Abnormal Lab Results - Last 24 Hours (Table) 08/27/18 08/27/18 08/27/18 Range/Units 08:07 08:07 08:07 WBC 17.4 H (3.8-10.6) k/uL Neutrophils # 15.5 H (1.3-7.7) k/uL Lymphocytes # 0.6 L (1.0-4.8) k/uL Monocytes # 1.2 H (0-1.0) k/uL PT 86.0 H (9.0-12.0) sec INR 8.8 H* (<1.2) Potassium 5.4 H (3.5-5.1) mmol/L Chloride 108 H (98-107) mmol/L BUN 45 H (9-20) mg/dL Calcium 10.4 H (8.4-10.2) mg/dL Lactate Dehydrogenase (313-618) U/L 08/27/18 Range/Units 08:07 WBC (3.8-10.6) k/uL Neutrophils # (1.3-7.7) k/uL Lymphocytes # (1.0-4.8) k/uL Monocytes # (0-1.0) k/uL PT (9.0-12.0) sec INR (<1.2) Potassium (3.5-5.1) mmol/L Chloride (98-107) mmol/L BUN (9-20) mg/dL Calcium (8.4-10.2) mg/dL Lactate Dehydrogenase 631 H (313-618) U/L Chest x-ray: report reviewed Assessment and Plan (1) Pneumonia Current Visit: Yes Status: Acute Code(s): J18.9 - PNEUMONIA, UNSPECIFIED ORGANISM SNOMED Code(s): 566620728 (2) Acute exacerbation of chronic obstructive airways disease Current Visit: No Status: Acute Code(s): J44.1 - CHRONIC OBSTRUCTIVE PULMON HANK DISEASE W (ACUTE) EXACERBATION SNOMED Code(s): 740169970 Plan: Add: # Pneumonia - the patient has bilateral lung infiltrates, right greater than left. The right-sided infiltrate was present previously. These findings raised the possibility of pneumonia, possibly postobstructive. Other etiologies such as lymphangitic spread are possible but less likely, given fairly acute change especially on the left. Defer to the admitting service and pulmonary medicine for treatment of the same. If patient is not responding optimally, would recommend consideration of bronchoscopy to evaluate for obstruction. In that situation the patient may benefit from relief of obstruction acutely, if possible. He is planned to start chemotherapy and radiation, which would also benefit obstructive symptoms, but that is likely longer to have an effect. #COPD exacerbation - defer to the admitting service and pulmonary medicine for management. If the patient has obstruction with postobstructive pneumonitis, this could be exacerbating factor # Coagulopathy - due to decreased by mouth intake. In addition steroids as well as further antibiotics will also potentiate warfarin effect while antibiotic use we will decrease vitamin K by affecting gut bacteria. Can resume anticoagulation once INR is less than 3 Otherwise as above
[2018-08-27 15:14] LABS: Phosphorus 3.8 mg/dL (2.5-4.5)
[2018-08-27] MEDS: AZITHROMYCIN 500 MG TAB PO SCH (15:42)
[2018-08-27 17:17] LABS: Glucose,Whole Blood 99 mg/dL (75-99)
[2018-08-27] MEDS ORDERED: WARFARIN 2 MG TAB PO SCH (18:00)
[2018-08-27] MEDS: BUDESONIDE 1 MG/2 ML NEBU INHALATION SCH (20:17)
[2018-08-27] MEDS: FORMOTEROL FUMARATE 20 MCG/2 ML NEBU INHALATION SCH (20:34)
[2018-08-27 20:56] LABS: Glucose,Whole Blood 134 mg/dL (75-99)
[2018-08-27] MEDS: amLODIPine 5 MG TAB PO SCH (21:50)
[2018-08-27] MEDS: METOPROLOL SUCCINATE (ER) 50 MG TAB.ER.24H PO SCH (21:50)
[2018-08-27] MEDS: guaiFENesin 600 MG TABLET.ER PO SCH (21:50)
[2018-08-27] MEDS: ATORVASTATIN 10 MG TAB PO SCH (21:50)
[2018-08-27] MEDS: DOCUSATE 100 MG CAP PO SCH (21:50)
[2018-08-27] MEDS: ARTIFICIAL TEARS-HYPROMELLOSE DROPS 15 ML BTL BOTH EYES SCH (23:04)
--- NOTE | 2018-08-28 00:19 | P.HPIM ---
History of Present Illness H&P Date: 08/27/18 Chief Complaint: Shortness of breath History of presenting complaint: This is a very pleasant 83-year-old patient of Dr. Munoz. Patient had a bronchoscopy done by Dr. horner and on July 24 that was unremarkable. He went down to [facility] with a repeat bronchoscopy with Dr. Baird and had a needle biopsy that was positive for metastatics, squamous cell cancer. A recent PET scan showed bilateral mediastinal and supraclavicular clavicular lymphadenopathy. . Patient also the MRI of the head and MRI of the spine board with that was negative. Patient was due to start on chemotherapy soon. Patient chronic stable medical conditions include osteoarthritis, hypertension, hyperlipidemia, atrial fibrillation. Last admission patient was treated both for COPD exacerbation and pneumonia. Patient now presents with the cough some yellow sputum. Poor appetite wheezing. Patient's oncologist is Dr. orosco. Patient was recently discharged from the hospital on August 17. Was then treated for COPD exacerbation and pneumonia. Patient's and daughter both present. Review of systems: GEN.: Weak tired loss of appetite EYES: None HEENT: None NECK: None RESPIRATORY: As above CARDIOVASCULAR: None GASTROINTESTINAL: None GENITOURINARY: None MUSCULOSKELETAL: None LYMPHATICS: None HEMATOLOGICAL: None PSYCHIATRY: Bit anxious NEUROLOGICAL: None Past medical history: Metastatics, cell lung cancer, waiting to start treatment, persistent atrial fibrillation, hyperlipidemia, hypertension, primary osteoarthritis Social history: . Smoke a pack a day for close to 64 years. no alcohol. Family history: Lung and liver cancer Physical examination: VITAL SIGNS: 37.7, 22, 125/70, 93% on 4 L GENERAL: BMI 22.9, propped up in bed, short of breath and wheezing at rest. EYES: Pupils equal. Conjunctiva normal. HEENT: External appearance of nose and ears normal, oral cavity grossly normal. NECK: JVD not raised; masses not palpable. HEART: First and second heart sounds are normal; no edema. LUNGS: Respiratory rate increased, decreased breath sounds prolonged expiration respiration wheezing, unable to speak in full sentences with extra C muscles a working. ABDOMEN: Soft, nontender, liver spleen not palpable, no masses palpable. PSYCH: Alert and oriented x3; mood and affect anxiousl. NEUROLOGICAL: Cranial nerves grossly intact; no facial asymmetry, power and sensation grossly intact. LYMPHATICS: No lymph nodes palpable in the axilla and neck MANUEL schedule: Evidence of OA in the hands Investigations: White count 7.4 hemoglobin 13.5 INR 8.8 potassium 5.4 bun 45 creatinine 0.84 EKG tracing personally reviewed by me shows atrial fibrillation rate controlled with some ST segment changes Chest x-ray film personally reviewed by me shows infiltrates on both the sides Assessment: -Pneumonia, suspect gram-negative organism, POA -Acute severe COPD exacerbation in a current smoker -Chronic nicotine dependence patient's cigarette smoker -Metastatics, squamous cell lung cancer, awaiting starting a treatment -Persistent atrial fibrillation -Hyperlipidemia -Essential hypertension Plan: Home medications resumed. Patient's blood bronchodilators every 4 hours. IV steroids. Antibiotics. Consultation was made to pulmonary and oncology. Care was discussed the patient's family the bedside. Questions were answered. Expect patient to be hospital for at least 2 nights. -Primary osteoarthritis Past Medical History Past Medical History: Atrial Fibrillation, Cancer, COPD, Hyperlipidemia, Hypertension, Osteoarthritis (OA), Pneumonia Additional Past Medical History / Comment(s): HX OF SKIN CANCER AND LUNG CA, GOUT History of Any Multi-Drug Resistant Organisms: MRSA Date of last positivie culture/infection: 2012 MDRO Source:: LEFT ELBOW Past Surgical History: Orthopedic Surgery Additional Past Surgical History / Comment(s): LEFT ELBOW SURGERY, lung/lymph biopsy Past Anesthesia/Blood Transfusion Reactions: No Reported Reaction Past Psychological History: No Psychological Hx Reported Smoking Status: Former smoker Past Alcohol Use History: None Reported Additional Past Alcohol Use History / Comment(s): SMOKES 1PPD OR MORE. SMOKING SINCE 16 YEARS OLD- 66 YEARS. Past Drug Use History: None Reported - Past Family History Father Family Medical History: Cancer Additional Family Medical History / Comment(s): LUNG & LIVER CANCER Medications and Allergies Home Medications Medication Instructions Recorded Confirmed Type Allopurinol [Zyloprim] 100 mg PO DAILY 07/24/15 08/26/18 History Digoxin [Lanoxin] 250 mcg PO DAILY 07/24/15 08/26/18 History Fluticasone/Salmeterol [Advair 1 puff INHALATION RT-BID 07/24/15 08/26/18 History 250-50 Diskus] Metoprolol Succinate (ER) [Toprol 50 mg PO HS 07/24/15 08/26/18 History XL] Tiotropium [employer] [Spiriva] 1 puff INHALATION RT-HS 07/24/15 08/26/18 History Ubidecarenone [Co Q-10] 200 mg PO HS 07/24/15 08/26/18 History Warfarin Sodium 2 mg PO SUTUWETHFRSA 07/24/15 08/26/18 History Carboxymethylcellulose Sodium 1 drop BOTH EYES HS 08/13/18 08/26/18 History [Refresh Tears] Fluticasone Nasal [place] [Flonase 1 spray EA NOSTRIL DAILY 08/13/18 08/26/18 History Nasal [place]] Simvastatin [Zocor] 20 mg PO HS 08/13/18 08/26/18 History Warfarin [Coumadin] 3 mg PO MO 08/13/18 08/26/18 History amLODIPine [Norvasc] 5 mg PO HS 08/13/18 08/26/18 History Allergies Allergy/AdvReac Type Severity Reaction Status Date / Time Penicillins Allergy Unknown Itching Verified 08/26/18 12:26 Physical Exam Vitals: Vital Signs Temp Pulse Pulse Resp BP BP Pulse Ox 08/27/18 08:30 88 08/27/18 08:20 84 08/27/18 08:00 78 18 106/61 92 L 08/27/18 04:00 97.7 F 74 18 118/60 90 L 08/27/18 00:00 97.8 F 77 18 120/61 96 08/26/18 21:47 97.6 F 76 18 120/60 93 L 08/26/18 21:20 97.9 F 89 22 120/55 94 L 08/26/18 20:45 76 08/26/18 20:35 75 08/26/18 19:25 98.3 F 82 18 126/64 93 L 08/26/18 17:40 93 L 08/26/18 17:18 80 08/26/18 17:03 82 08/26/18 17:00 81 18 141/71 91 L 08/26/18 16:30 78 18 125/65 92 L 08/26/18 15:37 78 19 122/65 96 08/26/18 12:22 97.7 F 82 22 125/70 93 L Intake and Output 08/26/18 08/27/18 08/27/18 22:59 06:59 14:59 Intake Total 100 340 Balance 100 340 Intake: Oral 100 340 Other: Voiding Method Urinal Weight 80.9 kg Results CBC & Chem 7: 08/27/18 08:07 08/27/18 08:07 Labs: Abnormal Lab Results - Last 24 Hours (Table) 08/26/18 08/26/18 08/26/18 Range/Units 12:49 12:49 12:49 WBC 20.4 H (3.8-10.6) k/uL Neutrophils # 18.6 H (1.3-7.7) k/uL Lymphocytes # 0.6 L (1.0-4.8) k/uL PT 67.6 H (9.0-12.0) sec INR 7.0 H* (<1.2) APTT 64.5 H (22.0-30.0) sec Potassium 5.7 H (3.5-5.1) mmol/L BUN 47 H (9-20) mg/dL Glucose 111 H (74-99) mg/dL Plasma Lactic Acid Rk (0.7-2.0) mmol/L Calcium 10.8 H (8.4-10.2) mg/dL Total Protein 5.9 L (6.3-8.2) g/dL Albumin 2.8 L (3.5-5.0) g/dL 08/26/18 08/27/18 Range/Units 12:49 08:07 WBC (3.8-10.6) k/uL Neutrophils # (1.3-7.7) k/uL Lymphocytes # (1.0-4.8) k/uL PT 86.0 H (9.0-12.0) sec INR 8.8 H* (<1.2) APTT (22.0-30.0) sec Potassium (3.5-5.1) mmol/L BUN (9-20) mg/dL Glucose (74-99) mg/dL Plasma Lactic Acid Rk 2.5 H* (0.7-2.0) mmol/L Calcium (8.4-10.2) mg/dL Total Protein (6.3-8.2) g/dL Albumin (3.5-5.0) g/dL Thrombosis Risk Factor Assmnt - Choose All That Apply Any of the Below Risk Factors Present?: Yes Each Factor Represents 1 point: Abnormal pulmonary function (COPD) Other Risk Factors: No Each Risk Factor Represents 3 Points: Age 75 years or older Other congenital or acquired thrombophilia - If yes, enter type in comment: No Thrombosis Risk Factor Assessment Total Risk Factor Score: 4 Thrombosis Risk Factor Assessment Level: Moderate Risk
[2018-08-28] MEDS: IPRATROPIUM-ALBUTEROL 3 ML NEB INHALATION SCH ×6 (03:27→23:54)
[2018-08-28] MEDS: methylPREDNISolone SOD SUCCI 125 MG/2 ML VIAL IV SCH ×4 (05:33→22:21)
[2018-08-28 06:28] LABS: Glucose,Whole Blood 114 mg/dL (75-99)
[2018-08-28] MEDS: INSULIN ASPART (NovoLOG) 100 UNIT/ML VIAL SQ SCH ×4 (06:31→21:05)
[2018-08-28 06:46] LABS: Basophils % (A) 0 %; Eosinophils % (A) 0 %; HCT 43.6 % (39.0-53.0); HGB 13.6 gm/dL (13.0-17.5); Lymphocytes # (A) 0.4 k/uL (1.0-4.8); Lymphocytes % (A) 2 %; MCH 29.6 pg (25.0-35.0); MCHC 31.3 g/dL (31.0-37.0); MCV 94.5 fL (80.0-100.0); Mean Platelet Volume 8.9; Monocytes # (A) 0.4 k/uL (0-1.0); Monocytes % (A) 3 %; Neutrophils # (A) 16.9 k/uL (1.3-7.7); Neutrophils % (A) 95 %; Platelet Count 250 k/uL (150-450); RBC 4.61 m/uL (4.30-5.90); RDW 14.4 % (11.5-15.5); WBC 17.8 k/uL (3.8-10.6)
[2018-08-28 06:56] LABS: Albumin 2.6 g/dL (3.5-5.0); Calcium 10.9 mg/dL (8.4-10.2); INR 1.3 (<1.2); Magnesium 2.5 mg/dL (1.6-2.3); Partial Thromboplastin Time 36.1 sec (22.0-30.0); Potassium 5.1 mmol/L (3.5-5.1); Prothrombin Time 13.3 sec (9.0-12.0); Total Bilirubin 0.6 mg/dL (0.2-1.3); Total Protein 5.5 g/dL (6.3-8.2)
[2018-08-28] MEDS: BUDESONIDE 1 MG/2 ML NEBU INHALATION SCH ×2 (07:06→19:38)
[2018-08-28] MEDS: FORMOTEROL FUMARATE 20 MCG/2 ML NEBU INHALATION SCH ×2 (07:06→19:37)
[2018-08-28] MEDS: FLUTICASONE 50MCG/SPRAY NASAL 16GM EA NOSTRIL SCH (08:35)
[2018-08-28] MEDS: DIGOXIN 250 MCG TAB PO SCH (08:35)
[2018-08-28] MEDS: DOCUSATE 100 MG CAP PO SCH ×2 (08:35→22:20)
[2018-08-28] MEDS: ALLOPURINOL 100 MG TAB PO SCH (08:35)
[2018-08-28] MEDS: guaiFENesin 600 MG TABLET.ER PO SCH ×3 (08:37→21:14)
--- NOTE | 2018-08-28 11:44 | P.PN ---
Subjective Progress Note Date: 08/28/18 Principal diagnosis: Acute on chronic hypoxic respiratory failure secondary to an acute exacerbation of chronic obstructive pulmonary disease, complicated by post obstructive right lung pneumonia. This is a very pleasant 83-year-old gentleman who follows with Dr. Munoz as his primary care physician. 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 Has has significant COPD treated with Advair, Spiriva, albuterol and had been seen by our group back in 2016 was noted to have abnormal CAT scan. He had undergone bronchoscopy with biopsies which were negative for malignancy. Still concerned regarding possible cancer he was referred to Dr. Oni Pond at [facility] at which time he had undergone a right-sided VATS procedure with wedge resection and mediastinal lymph node biopsies. The results of that were consistent with inflammation and suspected pseudotumor. He had been undergoing serial follow-up chest x-rays through them and there was continued suspicion for lung cancer. 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 He was just to start his initial treatment with chemo and radiation here at [facility] yesterday but has been having issues with ongoing and worsening shortness of breath over the past month and presented here to the emergency room for the same. Of note, he was admitted here earlier this same month for COPD exacerbation. He was not seen by pulmonary at that time. Discharged home on 08/17/2018 on azithromycin and a prednisone taper. Chest x-ray reveals evidence of COPD with bilateral infiltrates right greater than left and small effusions. There is also bilateral hilar enlargement with evidence of adenopathy. He is requiring 5 L high flow nasal cannula to maintain O2 saturations in the 90s. White count 20.4. Hemoglobin 14.5. Platelet count 279,000. INR 8.8. ProBNP 1370. Initial lactic 2.5, currently 2.0. Creatinine 0.86. He has been initiated and DuoNeb inhalations, Pulmicort and Perforomist inhalations, IV Solu-Medrol. He is on antibiotics in the form of ceftriaxone and azithromycin. The patient is seen today 08/28/2018 in follow-up on the selective care unit. He is currently awake and alert. He is still having ongoing issues with cough congestion that mucus. Poor appetite. He is maintaining O2 saturations in the high 80s low 90s on 5 L high flow nasal cannula. Tachypneic. Count 17.8. Hemoglobin 13.6. INR 1.3. Creatinine 0.98. He remains on DuoNeb inhalations, Pulmicort and Perforomist inhalations, IV Solu-Medrol. Antibiotics in the form of ceftriaxone and azithromycin. We've added Mucinex. Marinol for his appetite. Objective - Vital Signs Vital signs: Vital Signs Temp 97.7 F 08/28/18 04:00 Pulse 98 08/28/18 11:31 Resp 28 H 08/28/18 08:00 BP 110/60 08/28/18 08:00 Pulse Ox 89 L 08/28/18 08:00 Intake & Output 08/27/18 08/28/18 08/28/18 18:59 06:59 18:59 Intake Total 680 240 Output Total 650 325 Balance 30 -325 240 Weight 80.9 kg 80.8 kg Intake: Oral 680 240 Output: Urine 650 325 Other: Voiding Method Urinal - Exam GENERAL EXAM: Very pleasant 83-year-old gentleman. Alert, comfortable in mild respiratory distress. On 5 L high flow nasal cannula. HEAD: Normocephalic. EYES: Normal reaction of pupils, equal size. NOSE: Clear with pink turbinates. THROAT: No erythema or exudates. NECK: No masses, no JVD. CHEST: No chest wall deformity. LUNGS: Equal air entry few scattered rhonchi bilaterally. CVS: S1 and S2 normal with no audible murmur, irregular rhythm. ABDOMEN: No hepatosplenomegaly, normal bowel sounds, no guarding or rigidity. SPINE: No scoliosis or deformity SKIN: No rashes CENTRAL NERVOUS SYSTEM: No focal deficits, tone is normal in all 4 extremities. EXTREMITIES: There is no peripheral edema. No clubbing, no cyanosis. Peripheral pulses are intact. - Labs CBC & Chem 7: 08/28/18 05:51 08/28/18 05:51 Labs: Abnormal Lab Results - Last 24 Hours (Table) 08/27/18 08/27/18 08/28/18 Range/Units 08:07 20:55 05:51 WBC (3.8-10.6) k/uL Neutrophils # (1.3-7.7) k/uL Lymphocytes # (1.0-4.8) k/uL PT 13.3 H (9.0-12.0) sec INR 1.3 H (<1.2) APTT 36.1 H (22.0-30.0) sec BUN (9-20) mg/dL Glucose (74-99) mg/dL POC Glucose (mg/dL) 134 H (75-99) mg/dL Calcium (8.4-10.2) mg/dL Magnesium (1.6-2.3) mg/dL Lactate Dehydrogenase 631 H (313-618) U/L Total Protein (6.3-8.2) g/dL Albumin (3.5-5.0) g/dL 08/28/18 08/28/18 08/28/18 Range/Units 05:51 05:51 06:26 WBC 17.8 H (3.8-10.6) k/uL Neutrophils # 16.9 H (1.3-7.7) k/uL Lymphocytes # 0.4 L (1.0-4.8) k/uL PT (9.0-12.0) sec INR (<1.2) APTT (22.0-30.0) sec BUN 47 H (9-20) mg/dL Glucose 115 H (74-99) mg/dL POC Glucose (mg/dL) 114 H (75-99) mg/dL Calcium 10.9 H (8.4-10.2) mg/dL Magnesium 2.5 H (1.6-2.3) mg/dL Lactate Dehydrogenase (313-618) U/L Total Protein 5.5 L (6.3-8.2) g/dL Albumin 2.6 L (3.5-5.0) g/dL Microbiology - Last 24 Hours (Table) 08/26/18 15:16 Blood Culture - Preliminary Blood No Growth after 24 hours Assessment and Plan Assessment: Impression: #1 Acute on chronic hypoxic respiratory failure secondary to an acute exacerbation of chronic obstructive pulmonary disease complicated by post obstructive right lung pneumonia. #2 Recent diagnosis of stage III lung cancer, squamous cell carcinoma. #3 Chronic obstructive pulmonary disease. #4 Chronic heavy tobacco dependence, has since quit. #5 Hyperlipidemia. #6 Hypertension. #7 Atrial fibrillation, anticoagulated with warfarin, subtherapeutic. #8 Osteoarthritis. #9 History of MRSA infection of the left elbow. Plan: The patient was seen and evaluated by Dr. Salas. Medications and labs reviewed. We will add Marinol for his appetite. Add Mucinex. Add flutter valve. We'll continue with DuoNeb inhalations, Pulmicort and Perforomist inhalations, IV Solu-Medrol. Currently on antibiotics in the form of ceftriaxone and azithromycin. Titrate down the FiO2 as tolerated. The patient is considering transfer to the [facility] where he had an opinion regarding his cancer and plan. We explained to the patient and family we would be happy to facilitate a transfer the would prefer. The patient's overall prognosis remains quite guarded. We will continue to follow and make further recommendations based on his clinical status. I, the cosigning physician, performed a history & physical examination of the patient. Lungs sounds bilateral scattered rhonchi Maintaining good O2 saturations in the 90s on 5 L high flow nasal cannula. I discussed the assessment and plan of care with my nurse practitioner, Tiffany Taylor. I attest to the above consultation as dictated by her.
[2018-08-28 12:09] LABS: Glucose,Whole Blood 119 mg/dL (75-99)
--- NOTE | 2018-08-28 15:20 | P.PN ---
Progress Note - Text Progress Note Date: 08/28/18 Chief Complaint: Shortness of breath History of presenting complaint: This is a very pleasant 83-year-old patient of Dr. Munoz. Patient had a bronchoscopy done by Dr. horner and on July 24 that was unremarkable. He went down to [facility] with a repeat bronchoscopy with Dr. Baird and had a needle biopsy that was positive for metastatics, squamous cell cancer. A recent PET scan showed bilateral mediastinal and supraclavicular clavicular lymphadenopathy. . Patient also the MRI of the head and MRI of the spine board with that was negative. Patient was due to start on chemotherapy soon. Patient chronic stable medical conditions include osteoarthritis, hypertension, hyperlipidemia, atrial fibrillation. Last admission patient was treated both for COPD exacerbation and pneumonia. Patient now presents with the cough some yellow sputum. Poor appetite wheezing. Patient's oncologist is Dr. orosco. Patient was recently discharged from the hospital on August 17. Was then treated for COPD exacerbation and pneumonia. Patient admitted with COPD exacerbation and pneumonia. today-remains in bed. Short of breath. Wheezing. Limited oral intake. and daughter the bedside. Tired. On nasal cannula. Review of systems: Was done for constitutional, cardiovascular, GI, pulmonary. relevant finding as above Active Medications Albuterol/Ipratropium (Duoneb 0.5 Mg-3 Mg/3 Ml Soln) 3 ml INHALATION RT-Q2H PRN PRN Reason: Shortness Of Breath Or Wheezing Albuterol/Ipratropium (Duoneb 0.5 Mg-3 Mg/3 Ml Soln) 3 ml INHALATION RT-Q4H [facility] Last Admin: 08/28/18 11:17 Dose: 3 ml Documented by: Allopurinol (Zyloprim) 100 mg PO DAILY [facility] Last Admin: 08/28/18 08:35 Dose: 100 mg Documented by: Amlodipine Besylate (Norvasc) 5 mg PO [facility] Last Admin: 08/27/18 21:50 Dose: 5 mg Documented by: Artificial Tears (Artificial Tear Drops) 1 drops BOTH EYES [facility] Last Admin: 08/27/18 23:04 Dose: Not Given Documented by: Atorvastatin Calcium (Lipitor) 10 mg PO [facility] Last Admin: 08/27/18 21:50 Dose: 10 mg Documented by: Azithromycin (Zithromax) 500 mg PO DAILY@1600 [facility] Last Admin: 08/27/18 15:42 Dose: 500 mg Documented by: Budesonide (Pulmicort) 1 mg INHALATION RT-BID [facility] Last Admin: 08/28/18 07:06 Dose: 1 mg Documented by: Digoxin (Lanoxin) 250 mcg PO DAILY [facility] Last Admin: 08/28/18 08:35 Dose: 250 mcg Documented by: Docusate Sodium (Colace) 100 mg PO BID [facility] Last Admin: 08/28/18 08:35 Dose: 100 mg Documented by: Dronabinol (Marinol) 5 mg PO AC-BID [facility] Fluticasone Propionate (Flonase Nasal [place]) 1 spray EA NOSTRIL DAILY [facility] Last Admin: 08/28/18 08:35 Dose: 1 spray Documented by: Formoterol Fumarate (Perforomist) 20 mcg INHALATION RT-BID [facility] Last Admin: 08/28/18 07:06 Dose: 20 mcg Documented by: Guaifenesin (Mucinex) 600 mg PO Q12HR [facility] Last Admin: 08/28/18 08:37 Dose: 600 mg Documented by: Guaifenesin (Mucinex) 1,200 mg PO Q12HR [facility] Ceftriaxone Sodium 1 gm/ (Sodium Chloride) 50 mls @ 100 mls/hr IVPB Q24HR [facility] Stop: 08/30/18 09:01 Last Admin: 08/28/18 08:34 Dose: 100 mls/hr Documented by: Insulin Aspart (Novolog) 0 unit SQ ACHS [facility]; Protocol Last Admin: 08/28/18 12:24 Dose: Not Given Documented by: Methylprednisolone Sodium Succinate (Solu-Medrol) 60 mg IV Q6HR [facility] Last Admin: 08/28/18 12:27 Dose: 60 mg Documented by: Metoprolol Succinate (Toprol Xl) 50 mg PO HS [facility] Last Admin: 08/27/18 21:50 Dose: 50 mg Documented by: Miscellaneous Information (Pneumonia Protocol Utilized) 1 each PO ONCE PRN PRN Reason: Per Protocol Physical examination: VITAL SIGNS: afebrile,95, 28, 110/60, 89% on 5 L GENERAL:propped up in bed, short of breath EYES: Pupils equal. Conjunctiva normal. HEENT: External appearance of nose and ears normal, oral cavity grossly normal. NECK: JVD not raised; masses not palpable. HEART: First and second heart sounds are normal; no edema. LUNGS: Respiratory rate increased, decreased breath sounds prolonged expiration respiration wheezing, unable to speak in full sentences with accessory muscles still working ABDOMEN: Soft, nontender, liver spleen not palpable, no masses palpable. PSYCH: Alert and oriented x3; mood and affect anxiousl. NEUROLOGICAL: Cranial nerves grossly intact; no facial asymmetry, power and sensation grossly intact. MANUEL schedule: Evidence of OA in the hands Investigations: white count 7.8 hemoglobin 13.6 potassium 5.1 creatinine 0.98 Previously: EKG tracing personally reviewed by me shows atrial fibrillation rate controlled with some ST segment changes Chest x-ray film personally reviewed by me shows infiltrates on both the sides Assessment: -Pneumonia, suspect gram-negative organism, POA -Acute severe COPD exacerbation in a current smoker, slow to respond -Acute hypoxic respiratory failure severe, from underlying COPD not improving -Chronic nicotine dependence patient's cigarette smoker -Metastatics, squamous cell lung cancer, awaiting treatment -Persistent atrial fibrillation -Hyperlipidemia -Essential hypertension -Primary osteoarthritis Plan: spoke to patient's family the bedside at length. They're like the patientthe patient to be transferred to [facility]. He states feels he'll be sore better today. Did speak to them at length that appropriately. treatment being given here.spoke to the test case developer Saadia. I did receive a call from the physician at [facility]. Discussed our plan would be doing here. He did inform me that our care providercare provided here was appropriate. Expect patient to be dischargedhome from here and then get his chemotherapy. Also there are no beds available and it is unknown how long beds might become available. He did not feel the need for patient to be transferred. I did speak again with Saadia the test case developer she will discuss the same with the family.hannah roland time spent today was about 45 minutes with over 30 minutes of discussion
[2018-08-28 17:11] LABS: Glucose,Whole Blood 115 mg/dL (75-99)
[2018-08-28] MEDS: DRONABINOL 2.5 MG CAP PO SCH (17:42)
[2018-08-28] MEDS: AZITHROMYCIN 500 MG TAB PO SCH (17:42)
[2018-08-28 20:38] LABS: Glucose,Whole Blood 108 mg/dL (75-99)
[2018-08-28] MEDS: METOPROLOL SUCCINATE (ER) 50 MG TAB.ER.24H PO SCH (21:13)
[2018-08-28] MEDS: ATORVASTATIN 10 MG TAB PO SCH (21:13)
[2018-08-28] MEDS: amLODIPine 5 MG TAB PO SCH (21:14)
[2018-08-28] MEDS: ARTIFICIAL TEARS-HYPROMELLOSE DROPS 15 ML BTL BOTH EYES SCH (22:05)
[2018-08-29] MEDS: IPRATROPIUM-ALBUTEROL 3 ML NEB INHALATION SCH ×6 (03:50→23:16)
[2018-08-29] MEDS: methylPREDNISolone SOD SUCCI 125 MG/2 ML VIAL IV SCH ×2 (06:07→12:45)
[2018-08-29] MEDS: DRONABINOL 2.5 MG CAP PO SCH ×2 (06:07→17:43)
[2018-08-29] MEDS: INSULIN ASPART (NovoLOG) 100 UNIT/ML VIAL SQ SCH ×4 (06:31→21:21)
[2018-08-29 06:39] LABS: Glucose,Whole Blood 107 mg/dL (75-99)
[2018-08-29 06:48] LABS: INR 1.9 (<1.2); Prothrombin Time 18.9 sec (9.0-12.0)
[2018-08-29] MEDS: BUDESONIDE 1 MG/2 ML NEBU INHALATION SCH ×2 (07:35→20:16)
[2018-08-29] MEDS: FORMOTEROL FUMARATE 20 MCG/2 ML NEBU INHALATION SCH ×2 (07:35→20:16)
[2018-08-29] MEDS: DOCUSATE 100 MG CAP PO SCH ×2 (09:46→22:02)
[2018-08-29] MEDS: FLUTICASONE 50MCG/SPRAY NASAL 16GM EA NOSTRIL SCH (09:46)
[2018-08-29] MEDS: DIGOXIN 250 MCG TAB PO SCH (09:46)
[2018-08-29] MEDS: guaiFENesin 600 MG TABLET.ER PO SCH ×3 (09:46→22:02)
[2018-08-29] MEDS: ALLOPURINOL 100 MG TAB PO SCH (09:46)
--- NOTE | 2018-08-29 10:44 | XR ---
EXAMINATION TYPE: XR chest 1V portable DATE OF EXAM: 08/29/2018 HISTORY: pneumonia. REFERENCE: Previous study dated 08/27/2018. FINDINGS: Lung volumes are prominent. Heart size is obscured. There is worsening right lower lobe air space disease. There are small, bilateral effusions. IMPRESSION: 1. COPD. 2. WORSENING RIGHT BASILAR AIRSPACE DISEASE. 3. SMALL, BILATERAL EFFUSIONS.
--- NOTE | 2018-08-29 11:11 | PN ---
PROGRESS NOTE DATE OF SERVICE: August 29, 2018 This is an 83-year-old gentleman with history of acute on chronic hypoxemic respiratory failure secondary to COPD exacerbation complicated by lung cancer and postobstructive pneumonia in the right lung. He has stage III lung cancer, squamous cell type. He was recently diagnosed by Dr. Delvalle at [facility]. The patient was seen back in 2016 by our group. He saw Dr. Hood and there was a suspicious lesion in the right hilar area. The patient was biopsied by Dr. Hood but the biopsy was nondiagnostic and the patient was sent to [facility]. There he had another biopsy performed by the same surgeon and again it was nonmalignant. He was being followed with serial CT scanning. More recently, the lesion became more prominent. He had Mata needle biopsy and it was positive for squamous cell carcinoma. He has not started treatment as yet. He comes into the hospital with complaints of shortness of breath and cough with phlegm production and was found to have a postobstructive pneumonia. The patient also has a history of COPD which is moderately severe. I believe his FEV1 is right around 50%. He also has history of previous heavy tobacco use, hyperlipidemia, hypertension, atrial fibrillation, osteoarthritis, and previous history of MRSA infection of the elbow. The patient is not feeling much better today than yesterday. We did evaluate him yesterday and talked to a number of family members including a daughter and eucvslon-[id number] as well as his . Our nurse practitioner Tiffany knows the family well. We did add Marinol for appetite enhancement, Mucinex as a mucolytic and a flutter valve. They have helped somewhat. states that yesterday he was doing much better. PHYSICAL EXAMINATION: VITAL SIGNS: Current vital signs are reviewed temperature 98, heart rate 89, respiratory rate about 24, blood pressure 125/64 mean 84 and 6 L saturations about 90%. GENERAL: Appears in no acute distress. He does appear to be mildly tachypneic. Mild conversational dyspnea. No audible wheezing. HEENT examination is grossly unremarkable. Nasal O2 in place. NECK: Supple. Full range of motion. No adenopathy. CARDIOVASCULAR examination reveals regular rhythm and rate. Heart rate about 90 beats per minute. It appears to be regular. S1, S2 normal. LUNGS: Expiratory wheezes and occasional rhonchi. Breath sounds really diminished throughout. There is slight prolongation. Adventitious lung sounds are more prominent on forced maneuver. ABDOMEN: Soft. Bowel sounds are heard. EXTREMITIES are intact. No cyanosis, clubbing, or edema. SKIN: Without rash. NEUROLOGIC examination is brief but nonfocal. PT/INR was 18.9 and 1.9 respectively. The rest of labs reviewed. Microbiologic studies including blood and sputum sampling were negative. No recent chest x-ray to evaluate. I did order another portable chest x-ray to see if there has been any change or improvement. Medications are reviewed. He is on appropriate medications. For his infection he has Zithromax and ceftriaxone. He is on DuoNeb, Formoterol, Pulmicort. Getting Solu- Medrol, mucolytics and Marinol for appetite enhancement. ASSESSMENT: 1. Acute on chronic hypoxemic respiratory failure secondary to chronic obstructive pulmonary disease exacerbation complicated by postop for pneumonia, right lung. 2. Recent diagnosis of stage III lung cancer, squamous cell type, without treatment as yet. 3. Chronic obstructive pulmonary disease, mildly severe to severe based on an older lung function done back in 2018 which showed an FEV 1% right around 50. 4. Chronic heavy tobacco dependence. 5. Hyperlipidemia. 6. Hypertension. 7. History of atrial fibrillation. 8. Osteoarthritis. 9. Previous MRSA infection in the left elbow. PLAN: We will continue with current medications. The patient's microbiology is thus far all negative. He appeared stable compared to yesterday. He is certainly not any worse and he might be slightly better clinically. He states he does feel much better. A followup chest x-ray will be ordered. Additional recommendations and suggestions are forthcoming. Prognosis is guarded. I have had a long conversation with the , the daughter, and the daughter in law. MMODL / IJN: [id number] /
[2018-08-29 12:06] LABS: Glucose,Whole Blood 100 mg/dL (75-99)
--- NOTE | 2018-08-29 14:57 | P.PN ---
Progress Note - Text Progress Note Date: 08/29/18 Chief Complaint: Shortness of breath Interval history: This is a very pleasant 83-year-old patient of Dr. Munoz. Patient had a bronchoscopy done by Dr. horner and on July 24 that was unremarkable. He went down to [facility] with a repeat bronchoscopy with Dr. Baird and had a needle biopsy that was positive for metastatics, squamous cell cancer. A recent PET scan showed bilateral mediastinal and supraclavicular clavicular lymphadenopathy. . Patient also the MRI of the head and MRI of the spine board with that was negative. Patient was due to start on chemotherapy soon. Patient chronic stable medical conditions include osteoarthritis, hypertension, hyperlipidemia, atrial fibrillation. Last admission patient was treated both for COPD exacerbation and pneumonia. Patient now presents with the cough some yellow sputum. Poor appetite wheezing. Patient's oncologist is Dr. orosco. Patient was recently discharged from the hospital on August 17. Was then treated for COPD exacerbation and pneumonia. Patient admitted with COPD exacerbation and pneumonia. today-sitting upon a chair. A bit less short of breath. Oral intake total small. Family the bedside. Slight cough. No fever no chills. Tired Review of systems: Was done for constitutional, cardiovascular, GI, pulmonary. relevant finding as above Active Medications Albuterol/Ipratropium (Duoneb 0.5 Mg-3 Mg/3 Ml Soln) 3 ml INHALATION RT-Q2H PRN PRN Reason: Shortness Of Breath Or Wheezing Albuterol/Ipratropium (Duoneb 0.5 Mg-3 Mg/3 Ml Soln) 3 ml INHALATION RT-Q4H [facility] Last Admin: 08/29/18 11:55 Dose: 3 ml Documented by: Allopurinol (Zyloprim) 100 mg PO DAILY [facility] Last Admin: 08/29/18 09:46 Dose: 100 mg Documented by: Amlodipine Besylate (Norvasc) 5 mg PO [facility] Last Admin: 08/28/18 21:14 Dose: 5 mg Documented by: Artificial Tears (Artificial Tear Drops) 1 drops BOTH EYES [facility] Last Admin: 08/28/18 22:05 Dose: Not Given Documented by: Atorvastatin Calcium (Lipitor) 10 mg PO [facility] Last Admin: 08/28/18 21:13 Dose: 10 mg Documented by: Azithromycin (Zithromax) 500 mg PO DAILY@1600 [facility] Last Admin: 08/28/18 17:42 Dose: 500 mg Documented by: Budesonide (Pulmicort) 1 mg INHALATION RT-BID [facility] Last Admin: 08/29/18 07:35 Dose: 1 mg Documented by: Digoxin (Lanoxin) 250 mcg PO DAILY [facility] Last Admin: 08/29/18 09:46 Dose: 250 mcg Documented by: Docusate Sodium (Colace) 100 mg PO BID [facility] Last Admin: 08/29/18 09:46 Dose: 100 mg Documented by: Dronabinol (Marinol) 5 mg PO AC-BID [facility] Last Admin: 08/29/18 06:07 Dose: 5 mg Documented by: Fluticasone Propionate (Flonase Nasal [place]) 1 spray EA NOSTRIL DAILY [facility] Last Admin: 08/29/18 09:46 Dose: 1 spray Documented by: Formoterol Fumarate (Perforomist) 20 mcg INHALATION RT-BID [facility] Last Admin: 08/29/18 07:35 Dose: 20 mcg Documented by: Guaifenesin (Mucinex) 1,200 mg PO Q12HR [facility] Last Admin: 08/29/18 09:46 Dose: 1,200 mg Documented by: Ceftriaxone Sodium 1 gm/ (Sodium Chloride) 50 mls @ 100 mls/hr IVPB Q24HR [facility] Stop: 08/30/18 09:01 Last Admin: 08/29/18 09:45 Dose: 100 mls/hr Documented by: Insulin Aspart (Novolog) 0 unit SQ ACHS [facility]; Protocol Last Admin: 08/29/18 12:31 Dose: Not Given Documented by: Methylprednisolone Sodium Succinate (Solu-Medrol) 60 mg IV Q6HR [facility] Last Admin: 08/29/18 12:45 Dose: 60 mg Documented by: Metoprolol Succinate (Toprol Xl) 50 mg PO HS [facility] Last Admin: 08/28/18 21:13 Dose: 50 mg Documented by: Miscellaneous Information (Pneumonia Protocol Utilized) 1 each PO ONCE PRN PRN Reason: Per Protocol Physical examination: VITAL SIGNS: 98, 89, 26, 125/64, 89% on 6 L GENERAL: Sitting upon a chair, short of breath EYES: Pupils equal. Conjunctiva normal. HEENT: External appearance of nose and ears normal, oral cavity grossly normal. NECK: JVD not raised; masses not palpable. HEART: First and second heart sounds are normal; no edema. LUNGS: Respiratory rate increased, decreased breath sounds prolonged expiration respiration wheezing, unable to speak in full sentences with accessory muscles still working ABDOMEN: Soft, nontender, liver spleen not palpable, no masses palpable. PSYCH: Alert and oriented x3; mood and affect anxiousl. NEUROLOGICAL: Cranial nerves grossly intact; no facial asymmetry, power and sensation grossly intact. Musculoskeletal: Evidence of OA in the hands Investigations: Accu-Cheks 107, 100 INR 1.9 Previously: EKG tracing personally reviewed by me shows atrial fibrillation rate controlled with some ST segment changes Chest x-ray film personally reviewed by me shows infiltrates on both the sides Assessment: -Pneumonia, suspect gram-negative organism, POA -Acute severe COPD exacerbation in a current smoker, slow to respond -Acute hypoxic respiratory failure severe, from underlying COPD not improving -Chronic nicotine dependence patient's cigarette smoker -Metastatics, squamous cell lung cancer, awaiting treatment -Persistent atrial fibrillation -Hyperlipidemia -Essential hypertension -Primary osteoarthritis Plan: Did inform the family about my discussion with the physician at the [facility]. Continue current medication treatment plan including bronchodilators steroids antibiotics. Again encouraged to increase oral intake with small amounts and eat at more frequent intervals
[2018-08-29] MEDS: methylPREDNISolone SOD SUCCI 40 MG/ML 1 ML VIAL IV SCH ×2 (15:30→23:48)
[2018-08-29] MEDS: AZITHROMYCIN 500 MG TAB PO SCH (15:31)
[2018-08-29 16:51] LABS: Glucose,Whole Blood 83 mg/dL (75-99)
[2018-08-29 20:19] LABS: Glucose,Whole Blood 127 mg/dL (75-99)
[2018-08-29] MEDS: amLODIPine 5 MG TAB PO SCH (22:03)
[2018-08-29] MEDS: METOPROLOL SUCCINATE (ER) 50 MG TAB.ER.24H PO SCH (22:03)
[2018-08-29] MEDS: ARTIFICIAL TEARS-HYPROMELLOSE DROPS 15 ML BTL BOTH EYES SCH (22:03)
[2018-08-29] MEDS: ATORVASTATIN 10 MG TAB PO SCH (22:03)
[2018-08-30] MEDS: IPRATROPIUM-ALBUTEROL 3 ML NEB INHALATION SCH ×6 (02:31→23:37)
[2018-08-30] MEDS: DRONABINOL 2.5 MG CAP PO SCH ×2 (06:23→17:54)
[2018-08-30 06:28] LABS: Glucose,Whole Blood 119 mg/dL (75-99)
[2018-08-30] MEDS: INSULIN ASPART (NovoLOG) 100 UNIT/ML VIAL SQ SCH ×4 (06:40→20:38)
[2018-08-30 07:27] LABS: INR 2.6 (<1.2); Prothrombin Time 25.5 sec (9.0-12.0)
[2018-08-30 07:33] LABS: Basophils % (A) 0 %; Eosinophils % (A) 0 %; HCT 44.7 % (39.0-53.0); Lymphocytes # (A) 0.3 k/uL (1.0-4.8); Lymphocytes % (A) 1 %; MCH 29.6 pg (25.0-35.0); MCHC 31.3 g/dL (31.0-37.0); MCV 94.5 fL (80.0-100.0); Mean Platelet Volume 8.5; Monocytes # (A) 1.1 k/uL (0-1.0); Monocytes % (A) 5 %; Neutrophils # (A) 21.7 k/uL (1.3-7.7); Neutrophils % (A) 94 %; Platelet Count 251 k/uL (150-450); RBC 4.73 m/uL (4.30-5.90); RDW 13.8 % (11.5-15.5); WBC 23.2 k/uL (3.8-10.6)
[2018-08-30 07:40] LABS: Calcium 11.9 mg/dL (8.4-10.2); Potassium 4.9 mmol/L (3.5-5.1)
[2018-08-30] MEDS: FORMOTEROL FUMARATE 20 MCG/2 ML NEBU INHALATION SCH ×2 (07:43→19:26)
[2018-08-30] MEDS: BUDESONIDE 1 MG/2 ML NEBU INHALATION SCH ×2 (07:43→19:26)
[2018-08-30] MEDS: DIGOXIN 250 MCG TAB PO SCH (08:54)
[2018-08-30] MEDS: ALLOPURINOL 100 MG TAB PO SCH (08:54)
[2018-08-30] MEDS: guaiFENesin 600 MG TABLET.ER PO SCH ×2 (08:54→21:21)
[2018-08-30] MEDS: methylPREDNISolone SOD SUCCI 40 MG/ML 1 ML VIAL IV SCH ×4 (08:55→23:53)
[2018-08-30] MEDS: DOCUSATE 100 MG CAP PO SCH ×2 (08:55→21:21)
[2018-08-30] MEDS: FLUTICASONE 50MCG/SPRAY NASAL 16GM EA NOSTRIL SCH (08:55)
[2018-08-30] MEDS ORDERED: VANCOMYCIN IV PER PHARMACY 1 EACH MISC MISCELLANE PRN (10:46)
[2018-08-30] MEDS ORDERED: RX INFO: IV CONTRAST WAS GIVEN 1 EACH MISC MISCELLANE PRN (10:47)
[2018-08-30 11:38] LABS: Glucose,Whole Blood 103 mg/dL (75-99)
[2018-08-30] MEDS ORDERED: VANCOMYCIN 1,750 MG in SODIUM CHLORIDE 0.9% 500 ML 500 ML IVPB ONE (12:30)
[2018-08-30] MEDS ORDERED: VANCOMYCIN 1,500 MG in SODIUM CHLORIDE 0.9% 250 ML IVPB ONE (12:30)
--- NOTE | 2018-08-30 13:16 | P.PN ---
Subjective Progress Note Date: 08/30/18 Principal diagnosis: Shortness of breath, cough congestion This is a very pleasant 83-year-old gentleman who follows with Dr. Munoz as his primary care physician. 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 Has has significant COPD treated with Advair, Spiriva, albuterol and had been seen by our group back in 2016 was noted to have abnormal CAT scan. He had undergone bronchoscopy with biopsies which were negative for malignancy. Still concerned regarding possible cancer he was referred to Dr. Oni Pond at [facility] at which time he had undergone a right-sided VATS procedure with wedge resection and mediastinal lymph node biopsies. The results of that were consistent with inflammation and suspected pseudotumor. He had been undergoing serial follow-up chest x-rays through them and there was continued suspicion for lung cancer. 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 He was just to start his initial treatment with chemo and radiation here at [facility] yesterday but has been having issues with ongoing and worsening shortness of breath over the past month and presented here to the emergency room for the same. Of note, he was admitted here earlier this same month for COPD exacerbation. He was not seen by pulmonary at that time. Discharged home on 08/17/2018 on azithromycin and a prednisone taper. Chest x-ray reveals evidence of COPD with bilateral infiltrates right greater than left and small effusions. There is also bilateral hilar enlargement with evidence of adenopathy. He is requiring 5 L high flow nasal cannula to maintain O2 saturations in the 90s. White count 20.4. Hemoglobin 14.5. Platelet count 279,000. INR 8.8. ProBNP 1370. Initial lactic 2.5, currently 2.0. Creatinine 0.86. He has been initiated and DuoNeb inhalations, Pulmicort and Perforomist inhalations, IV Solu-Medrol. He is on antibiotics in the form of ceftriaxone and azithromycin. On 08/30/2018 patient's pulmonary status has worsened, she is quite congested, he is unable to bring up any sputum, his oxygen requirement has decreased, patient is up to 15 L on high flow nasal cannula and his pulse ox is 90%, tachypneic, and using accessory muscles of breathing. Afebrile. Today's labs h ave been reviewed, showing increase in the white blood cell count up to 23.2, hemoglobin is stable at 14.0, INR today is 2.6, electrolytes were within normal limits, BUN is 16 creatinine is 1.15. Patient remains on IV steroids, Zithromax and Rocephin, no new chest x-ray today, yesterday's chest x-ray report showed COPD, and worsening right basilar airspace disease, and small bilateral effusions, unfortunately the film is not available for us to review, and we are going by the report as read by . patient has a loose congested cough, lung sounds reveal diffuse rhonchi. Sputum culture showed Agnieszka albicans, blood culture showed no growth. We will obtain CT chest with contrast, and p atient will be transferred to the intensive care unit, for worsening hypoxemic respiratory failure with a concern of postobstructive pneumonia Objective - Vital Signs Vital signs: Vital Signs Temp 97.6 F 08/30/18 11:43 Pulse 92 08/30/18 12:00 Resp 28 H 08/30/18 11:43 BP 102/62 08/30/18 11:43 Pulse Ox 90 L 08/30/18 11:43 Intake & Output 08/29/18 08/30/18 08/30/18 18:59 06:59 18:59 Intake Total 462 120 Output Total 1100 Balance 462 -980 Weight 83 kg 83 kg Intake: Oral 462 120 Output: Urine 1100 Straight 800 Other: Voiding Method Urinal Urinal Urinal # Voids 1 1 - Exam GENERAL EXAM: Alert, pleasant, 83-year-old white male, tachypneic, in moderate to severe amount of respiratory distress, with a respiratory rate of 28 breaths per minute, on high flow nasal cannula, comfortable in no apparent distress. HEAD: Normocephalic/atraumatic. EYES: Normal reaction of pupils, equal size. Conjunctiva pink, sclera white. NOSE: Clear with pink turbinates. THROAT: No erythema or exudates. NECK: No masses, no JVD, no thyroid enlargement, no adenopathy. CHEST: No chest wall deformity. Symmetrical expansion. LUNGS: Equal air entry with diffuse rhonchi and wheezes CVS: Regular rate and rhythm, normal S1 and S2, no gallops, no murmurs, no rubs ABDOMEN: Soft, nontender. No hepatosplenomegaly, normal bowel sounds, no guarding or rigidity. EXTREMITIES: No clubbing, no edema, no cyanosis, 2+ pulses and upper and lower extremities. MUSCULOSKELETAL: Muscle strength and tone normal. SPINE: No scoliosis or deformity SKIN: No rashes CENTRAL NERVOUS SYSTEM: Alert and oriented -3. No focal deficits, tone is normal in all 4 extremities. PSYCHIATRIC: Alert and oriented -3. Appropriate affect. Intact judgment and insight. - Labs CBC & Chem 7: 08/30/18 06:50 08/30/18 06:50 Labs: Abnormal Lab Results - Last 24 Hours (Table) 08/29/18 08/30/18 08/30/18 Range/Units 20:17 06:26 06:50 WBC (3.8-10.6) k/uL Neutrophils # (1.3-7.7) k/uL Lymphocytes # (1.0-4.8) k/uL Monocytes # (0-1.0) k/uL PT 25.5 H (9.0-12.0) sec INR 2.6 H (<1.2) BUN (9-20) mg/dL Glucose (74-99) mg/dL POC Glucose (mg/dL) 127 H 119 H (75-99) mg/dL Calcium (8.4-10.2) mg/dL 08/30/18 08/30/18 08/30/18 Range/Units 06:50 06:50 11:16 WBC 23.2 H (3.8-10.6) k/uL Neutrophils # 21.7 H (1.3-7.7) k/uL Lymphocytes # 0.3 L (1.0-4.8) k/uL Monocytes # 1.1 H (0-1.0) k/uL PT (9.0-12.0) sec INR (<1.2) BUN 60 H (9-20) mg/dL Glucose 111 H (74-99) mg/dL POC Glucose (mg/dL) 103 H (75-99) mg/dL Calcium 11.9 H (8.4-10.2) mg/dL Microbiology - Last 24 Hours (Table) 08/28/18 13:00 Gram Stain - Final Sputum Sputum Culture - Final Agnieszka albicans 08/26/18 15:16 Blood Culture - Preliminary Blood No Growth after 72 hours Assessment and Plan Plan: Assessment: #1. Acute on chronic hypercapnic respiratory failure secondary to acute exacerbation of COPD, complicated by postobstructive pneumonia, and the right lung #2. Recent diagnosis of stage III lung cancer, squamous cell type, and has not started treatment yet, diagnosis was made via Mata needle biopsy R11 LN, biopsy results were positive for metastatic squamous cell carcinoma, recent PET scan revealed bilateral mediastinal and supraclavicular lymphadenopathy as well as T12 vertebral body #3. Chronic obstructive pulmonary disease, mildly severe to severe based on FEV1 of 50% #4. Chronic heavy tobacco dependence, carries 50+2 pack per day years of smoking history #5. Hypertension #6. Hyperlipidemia #7. History of atrial fibrillation on Coumadin #8. Osteoarthritis #9. Previous MRSA infection in the left elbow Plan: We'll transfer the patient to the intensive care unit, will obtain CT chest with contrast. Patient is increasingly more short of breath, tachypnea, and requiring higher amounts of oxygen, there has been increase in his leukocytosis, up to 23,000 and today's labs, we'll switch the antibiotic coverage from Zithromax and Rocephin to Levaquin Zosyn and vancomycin. We will increase the IV steroids to 60 mg every 6 hours, will continue with nebulized bronchodilators, continue with Pulmicort and Perforomist. Further recommendations to follow based on the CT scanning of the chest. I performed a history & physical examination of the patient and discussed their management with my nurse practitioner, Maryann Zimmerman. I reviewed the nurse dmitriy garrido's note and agree with the documented findings and plan of care. Lung sounds are positive for diminished breath sounds. The findings and the impression was discussed with the patient. I attest to the documentation by the nurse practitioner. Time with Patient: Less than 30
--- NOTE | 2018-08-30 13:55 | CT ---
EXAMINATION TYPE: CT chest w con DATE OF EXAM: 08/30/2018 COMPARISON: 07/25/2015 HISTORY: 83-year-old male Difficulty breathing, pneumonia. TECHNIQUE: Contiguous axial scanning of the chest after the administration of 80 mL of Isovue 300. C oronal/sagittal reconstructions performed. CT DLP: 308.6mGycm. Automatic exposure control utilized for a dose reduction. FINDINGS: Heart normal size with trace pericardial fluid. Coronary vessel calcifications are present. Ectatic aortic root at 3.9 cm. Moderate atherosclerotic calcifications of the aortic arch with conventional arch vessel branching an atomy. There is diffuse, conglomerate mediastinal lymphadenopathy. Right paratracheal soft tissue thickening up to 1.5 cm, right tracheobronchial angle thickening up to 1.7 cm, precarinal thickening of 6 cm, A P window lymphadenopathy measuring up to 1.4 cm, and subcarinal soft tissue thickening up to 3.2 cm. There is soft tissue encasement of the right hilum and lesser degree of left hilar lymphadenopathy me asuring up to 1.8 cm. There is encasement and narrowing at the junction of the right upper lobe bronchus and segmental bran ches. There is encasement and narrowing of the bronchus intermedius encasement of some of the proxima l right lower lobe segmental branches. There is cut off and collapse of the right middle lobe. Extensive septal lines and reticulonodularity throughout the right lung. Moderate effusion on the right with prominent adjacent dependent soft tissue thickening, possibly ate lectasis. Some surgical material seen along the medial aspect of the left upper to midlung level. Right upper l obe nodularity measuring up to 1.4 cm. Moderate emphysematous change seen on the left. Layering debris/secretions in the distal trachea. Moderate to advanced atherosclerotic calcifications throughout the visualized upper abdominal aorta a nd visceral arteries. Bones: Accentuated upper thoracic kyphosis. Endplate spondylosis throughout. IMPRESSION: 1. Prior wedge resection along the right upper to midlung. There is extensive conglomerate mediastina l lymphadenopathy with soft tissue thickening measuring up to 3.2 cm in the subcarinal region. Additi onal soft tissue encases the right hilum, narrowing the bronchus intermedius and cuts off the right m iddle lobe bronchus. 2. Findings suggest neoplastic recurrence. There is also left hilar lymphadenopathy and a right upper lobe nodule measuring 1.4 cm. Moderate right effusion with prominent adjacent atelectasis. 3. Reticular nodularity throughout the right lung could represent venous congestion from hilar encase ment versus pneumonitis. 4. Moderate emphysema. Layering secretions and debris in the distal trachea place the patient at risk for aspiration.
--- NOTE | 2018-08-30 14:29 | P.PN ---
Subjective Progress Note Date: 08/30/18 Principal diagnosis: LUIS EDUARDO, Squamous cell lung cancer, was due to start treatment In f/u today pt respiratory status is worsening, he is orthopneic, requiring hi flow O2, he is slightly confused and anxious, family feels his condition is worse Objective - Vital Signs Vital signs: Vital Signs Temp 97.6 F 08/30/18 11:43 Pulse 92 08/30/18 12:00 Resp 28 H 08/30/18 11:43 BP 102/62 08/30/18 11:43 Pulse Ox 90 L 08/30/18 11:43 Intake & Output 08/29/18 08/30/18 08/30/18 18:59 06:59 18:59 Intake Total 462 120 Output Total 1100 Balance 462 -980 Weight 83 kg 83 kg Intake: Oral 462 120 Output: Urine 1100 Straight 800 Other: Voiding Method Urinal Urinal Urinal # Voids 1 1 - Constitutional General appearance: Present: cooperative, severe distress, thin - EENT EENT Comment(s): dry mouth Eyes: Present: anicteric sclerae, EOMI - Respiratory Details: unable to expectorate Respiratory: bilateral: rales, rhonchi - Cardiovascular Details: 1+ radial pulse, pedal pulse 2+, skin warm, no lower extremity swelling Heart sounds: normal: S1, S2 - Gastrointestinal General gastrointestinal: Present: normal bowel sounds, soft - Neurologic Neurologic: Present: CNII-XII intact - Musculoskeletal Musculoskeletal: Present: generalized weakness - Psychiatric Psychiatric Comment(s): Alert, but it is obvious that pt wants to fall asleep and the work of breathing is tiring him out - Labs CBC & Chem 7: 08/30/18 06:50 08/30/18 06:50 Labs: Abnormal Lab Results - Last 24 Hours (Table) 08/29/18 08/30/18 08/30/18 Range/Units 20:17 06:26 06:50 WBC (3.8-10.6) k/uL Neutrophils # (1.3-7.7) k/uL Lymphocytes # (1.0-4.8) k/uL Monocytes # (0-1.0) k/uL PT 25.5 H (9.0-12.0) sec INR 2.6 H (<1.2) BUN (9-20) mg/dL Glucose (74-99) mg/dL POC Glucose (mg/dL) 127 H 119 H (75-99) mg/dL Calcium (8.4-10.2) mg/dL 08/30/18 08/30/18 08/30/18 Range/Units 06:50 06:50 11:16 WBC 23.2 H (3.8-10.6) k/uL Neutrophils # 21.7 H (1.3-7.7) k/uL Lymphocytes # 0.3 L (1.0-4.8) k/uL Monocytes # 1.1 H (0-1.0) k/uL PT (9.0-12.0) sec INR (<1.2) BUN 60 H (9-20) mg/dL Glucose 111 H (74-99) mg/dL POC Glucose (mg/dL) 103 H (75-99) mg/dL Calcium 11.9 H (8.4-10.2) mg/dL Microbiology - Last 24 Hours (Table) 08/28/18 13:00 Gram Stain - Final Sputum Sputum Culture - Final Agnieszka albicans 08/26/18 15:16 Blood Culture - Preliminary Blood No Growth after 72 hours - Imaging and Cardiology CT scan - chest: report reviewed Assessment and Plan (1) Squamous cell lung cancer Narrative/Plan: Plan was to initiate concurrent chemo/XRT earlier this week but, unfortunately pt respiratory status declined. At this time treatment will be delayed until pt condition improves/stabilizes Current Visit: Yes Status: Acute Priority: High Code(s): C34.90 - MALIGNANT NEOPLASM OF UNSP PART OF UNSP BRONCHUS OR LUNG SNOMED Code(s): 744419407 Plan: Pt was seen while Pulmonary/Critical Care seeing Pt. Plan is to move to ICU, CT ordered, medication changes. Will defer care to Food Manager. We will follow with pt and family
[2018-08-30] MEDS: LEVOFLOXACIN 750MG-D5W PMX 750 MG in DEXTROSE/WATER 1 150ML.BAG IVPB SCH (15:33)
--- NOTE | 2018-08-30 16:27 | P.PN ---
Subjective Progress Note Date: 08/30/18 Principal diagnosis: This is an 83-year-old male that was admitted for COPD exacerbation with pneumonia. Patient was recently just moved the ICU today for worsening of his respiratory status. Patient was having labored breathing with increasing respirations. Patient is being closely monitored. Patient is hard of hearing but denies any chest pain or palpitations at this time. Oncology is following the patient as well as the patient recently had a needle biopsy showing he was positive for metastasis of squamous cell lung cancer. Patient was expected to start treatment shortly. Objective - Vital Signs Vital signs: Vital Signs Temp 97.6 F 08/30/18 11:43 Pulse 90 08/30/18 15:00 Resp 26 H 08/30/18 15:00 BP 129/74 08/30/18 15:00 Pulse Ox 89 L 08/30/18 15:00 Intake & Output 08/29/18 08/30/18 08/30/18 18:59 06:59 18:59 Intake Total 462 120 250 Output Total 1100 Balance 462 -980 250 Weight 83 kg 83 kg Intake: Intake, IV Titration 250 Amount Vancomycin 1,500 mg In 250 Sodium Chloride 0.9% 250 ml @ 125 mls/hr IVPB ONCE ONE Rx#:[id number] Oral 462 120 Output: Urine 1100 Straight 800 Other: Voiding Method Urinal Urinal Urinal # Voids 1 1 - Exam Gen: This is a 83-year-old male sitting straight up in bed in mild acute dist ress with increasing respirations and labored breathing. Patient was just moved here to the ICU. HEENT: Head is atraumatic, normocephalic. Pupils equal, round. Sclerae is anicteric. NECK: Supple. No JVD. No lymphadenopathy. No thyromegaly. LUNGS: Diminished bilaterally with expiratory wheezing noted. Accessory muscle use noted on exam HEART: Regular rate and rhythm. No murmur. ABDOMEN: Soft. Bowel sounds are present. No masses. No tenderness. EXTREMITIES: No pedal edema. No calf tenderness. NEUROLOGICAL: Patient is awake, alert and oriented x3. Anxious in appearance. Cranial nerves 2 through 12 are grossly intact. - Labs CBC & Chem 7: 08/30/18 06:50 08/30/18 06:50 Labs: Abnormal Lab Results - Last 24 Hours (Table) 08/29/18 08/30/18 08/30/18 Range/Units 20:17 06:26 06:50 WBC (3.8-10.6) k/uL Neutrophils # (1.3-7.7) k/uL Lymphocytes # (1.0-4.8) k/uL Monocytes # (0-1.0) k/uL PT 25.5 H (9.0-12.0) sec INR 2.6 H (<1.2) BUN (9-20) mg/dL Glucose (74-99) mg/dL POC Glucose (mg/dL) 127 H 119 H (75-99) mg/dL Calcium (8.4-10.2) mg/dL 08/30/18 08/30/18 08/30/18 Range/Units 06:50 06:50 11:16 WBC 23.2 H (3.8-10.6) k/uL Neutrophils # 21.7 H (1.3-7.7) k/uL Lymphocytes # 0.3 L (1.0-4.8) k/uL Monocytes # 1.1 H (0-1.0) k/uL PT (9.0-12.0) sec INR (<1.2) BUN 60 H (9-20) mg/dL Glucose 111 H (74-99) mg/dL POC Glucose (mg/dL) 103 H (75-99) mg/dL Calcium 11.9 H (8.4-10.2) mg/dL Microbiology - Last 24 Hours (Table) 08/28/18 13:00 Gram Stain - Final Sputum Sputum Culture - Final Agnieszka albicans 08/26/18 15:16 Blood Culture - Preliminary Blood No Growth after 72 hours Assessment and Plan Assessment: Pneumonia, suspect gram-negative organism, present on arrival Acute severe COPD exacerbation Acute hypoxic respiratory failure severe, from underlying COPD Chronic nicotine dependence: Patient is still cigarette smoker Metastasis, squamous cell lung cancer, awaiting treatment Persistent atrial fibrillation Hyperlipidemia Essential hypertension Primary osteoarthritis Recommendations and discussion Recommend continuing current medication and symptomatic management. Patient will be monitored in the ICU closely. Prognosis is guarded. We'll continue with bronchodilators, steroids, and antibiotics at this time. Further recommendations to follow.
[2018-08-30] MEDS: PIPERACILLIN-TAZOBACTAM 3.375 GM in SODIUM CHLORIDE 0.9% 100 ML IVPB SCH ×2 (17:55→22:15)
[2018-08-30] MEDS ORDERED: WARFARIN 3 MG TAB PO SCH (18:00)
[2018-08-30 18:15] LABS: Glucose,Whole Blood 98 mg/dL (75-99)
[2018-08-30 20:48] LABS: Glucose,Whole Blood 104 mg/dL (75-99)
[2018-08-30] MEDS: amLODIPine 5 MG TAB PO SCH (21:21)
[2018-08-30] MEDS: ATORVASTATIN 10 MG TAB PO SCH (21:21)
[2018-08-30] MEDS: METOPROLOL SUCCINATE (ER) 50 MG TAB.ER.24H PO SCH (21:21)
[2018-08-30] MEDS: ARTIFICIAL TEARS-HYPROMELLOSE DROPS 15 ML BTL BOTH EYES SCH (23:04)
[2018-08-30] MEDS: VANCOMYCIN 1,500 MG in SODIUM CHLORIDE 0.9% 250 ML IVPB SCH (23:52)
[2018-08-31] MEDS: IPRATROPIUM-ALBUTEROL 3 ML NEB INHALATION SCH ×6 (03:31→23:50)
[2018-08-31 05:24] LABS: Basophils % (A) 0 %; Eosinophils # (A) 0.1 k/uL (0-0.7); Eosinophils % (A) 1 %; HGB 13.3 gm/dL (13.0-17.5); Lymphocytes # (A) 0.2 k/uL (1.0-4.8); Lymphocytes % (A) 1 %; MCH 29.5 pg (25.0-35.0); MCHC 30.9 g/dL (31.0-37.0); MCV 95.6 fL (80.0-100.0); Mean Platelet Volume 8.3; Monocytes # (A) 0.6 k/uL (0-1.0); Monocytes % (A) 3 %; Neutrophils # (A) 20.7 k/uL (1.3-7.7); Neutrophils % (A) 95 %; Platelet Count 220 k/uL (150-450); RBC 4.49 m/uL (4.30-5.90); RDW 13.9 % (11.5-15.5); WBC 21.8 k/uL (3.8-10.6)
[2018-08-31] MEDS: methylPREDNISolone SOD SUCCI 40 MG/ML 1 ML VIAL IV SCH ×4 (05:30→23:19)
[2018-08-31] MEDS: PIPERACILLIN-TAZOBACTAM 3.375 GM in SODIUM CHLORIDE 0.9% 100 ML IVPB SCH ×3 (05:31→23:19)
[2018-08-31 05:32] LABS: Calcium 11.4 mg/dL (8.4-10.2); INR 3.5 (<1.2); Potassium 5.3 mmol/L (3.5-5.1); Prothrombin Time 34.1 sec (9.0-12.0)
[2018-08-31] MEDS: INSULIN ASPART (NovoLOG) 100 UNIT/ML VIAL SQ SCH ×4 (06:58→21:16)
[2018-08-31 07:07] LABS: Glucose,Whole Blood 124 mg/dL (75-99)
--- NOTE | 2018-08-31 08:18 | XR ---
EXAMINATION TYPE: XR chest 1V DATE OF EXAM: 08/31/2018 COMPARISON: Prior chest x-ray 08/29/[address] 08/30/2018 HISTORY: COPD, pneumonia TECHNIQUE: frontal view of the chest is obtained 2 images. FINDINGS: Apical pleural thickening on the right is again noted. Perihilar increased density persist s. Right hemidiaphragm is obscured. Interstitium is increased in the right hemithorax. No pneumothora x. Heart size is stable. IMPRESSION: Findings may be related to patient's lung carcinoma, correlate for pneumonia. There is a ssociated effusion.
[2018-08-31] MEDS: guaiFENesin 600 MG TABLET.ER PO SCH ×2 (08:51→21:12)
[2018-08-31] MEDS: DRONABINOL 2.5 MG CAP PO SCH (08:52)
[2018-08-31] MEDS: DOCUSATE 100 MG CAP PO SCH (08:52)
[2018-08-31] MEDS: ALLOPURINOL 100 MG TAB PO SCH (08:52)
[2018-08-31] MEDS: DIGOXIN 250 MCG TAB PO SCH (08:52)
--- NOTE | 2018-08-31 08:55 | P.PN ---
Subjective Progress Note Date: 08/31/18 Principal diagnosis: Acute on chronic hypoxic respiratory failure secondary to an acute exacerbation of chronic obstructive pulmonary disease, complicated by post obstructive right lung pneumonia. This is a very pleasant 83-year-old gentleman who follows with Dr. Munoz as his primary care physician. 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 Has has significant COPD treated with Advair, Spiriva, albuterol and had been seen by our group back in 2016 was noted to have abnormal CAT scan. He had undergone bronchoscopy with biopsies which were negative for malignancy. Still concerned regarding possible cancer he was referred to Dr. Oni Pond at [facility] at which time he had undergone a right-sided VATS procedure with wedge resection and mediastinal lymph node biopsies. The results of that were consistent with inflammation and suspected pseudotumor. He had been undergoing serial follow-up chest x-rays through them and there was continued suspicion for lung cancer. 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 He was just to start his initial treatment with chemo and radiation here at [facility] yesterday but has been having issues with ongoing and worsening shortness of breath over the past month and presented here to the emergency room for the same. Of note, he was admitted here earlier this same month for COPD exacerbation. He was not seen by pulmonary at that time. Discharged home on 08/17/2018 on azithromycin and a prednisone taper. Chest x-ray reveals evidence of COPD with bilateral infiltrates right greater than left and small effusions. There is also bilateral hilar enlargement with evidence of adenopathy. He is requiring 5 L high flow nasal cannula to maintain O2 saturations in the 90s. White count 20.4. Hemoglobin 14.5. Platelet count 279,000. INR 8.8. ProBNP 1370. Initial lactic 2.5, currently 2.0. Creatinine 0.86. He has been initiated and DuoNeb inhalations, Pulmicort and Perforomist inhalations, IV Solu-Medrol. He is on antibiotics in the form of ceftriaxone and azithromycin. The patient is seen today 08/31/2018 in follow-up in the intensive care unit. He is on 12 L high flow nasal cannula. He is feeling about the same as compared to yesterday. No significant improvements in his pulmonary status. He has been transitioned to vancomycin, Zosyn and Levaquin. CAT scan of the chest revealed prior wedge resection along the right upper to mid lung. There is extensive conglomerate mediastinal lymphadenopathy with soft tissue thickening measuring up to 3.2 cm in the subcarinal region. Additional soft tissue encases the right hilum, narrowing the bronchus intermedius and had soft the right middle lobe bronchus. There is also left hilar lymphadenopathy and a right upper lobe nodule measuring 1.4 cm. Moderate right effusion with prominent adjacent atelectasis. There is reticular nodularity throughout the right lung quality control representative congestion from hilar encasement versus pneumonitis. Moderate amount of emphysema. There is also layering secretions and debris in the distal tracheal place and the patient risk for aspiration. Today's chest x-ray shows apical pleural thickening on the right. Perihilar increased density persists. Right hemidiaphragm is obscured. Interstitium is increased in the right hemithorax. No pneumothorax. Sputum culture positive for Agnieszka. Blood cultures reveal no growth. White count 21.8. Hemoglobin 13.3. INR 3.5. Sodium 136. Potassium 5.3. Creatinine 1.07. Objective - Vital Signs Vital signs: Vital Signs Temp 97.2 F L 08/31/18 04:00 Pulse 85 08/31/18 07:00 Resp 31 H 08/31/18 07:00 BP 126/66 08/31/18 07:00 Pulse Ox 89 L 08/31/18 07:00 Intake & Output 08/30/18 08/31/18 08/31/18 18:59 06:59 18:59 Intake Total 250 600 10 Output Total 900 980 100 Balance -650 -380 -90 Weight 83 kg 83.8 kg Intake: IV 500 10 .9 150 10 Piperacillin-Tazobactam 3 100 .375 gm In Sodium Chloride 0.9% 100 ml @ 25 mls/hr IVPB Q8H [facility] Rx#: [id number] Vancomycin 1,500 mg In 250 Sodium Chloride 0.9% 250 ml @ 125 mls/hr IVPB ONCE ONE Rx#:[id number] Intake, IV Titration 250 Amount Vancomycin 1,500 mg In 250 Sodium Chloride 0.9% 250 ml @ 125 mls/hr IVPB ONCE ONE Rx#:[id number] Oral 100 Output: Urine 900 980 100 Straight 900 Other: Voiding Method Urinal Indwelling Catheter - Exam GENERAL EXAM: Very pleasant 83-year-old gentleman. Alert, in mild respiratory distress. On 12 L high flow nasal cannula. HEAD: Normocephalic. EYES: Normal reaction of pupils, equal size. NOSE: Clear with pink turbinates. THROAT: No erythema or exudates. NECK: No masses, no JVD. CHEST: No chest wall deformity. LUNGS: Equal air entry and crackles, diminished in the right lung base. CVS: S1 and S2 normal with no audible murmur, irregular rhythm. ABDOMEN: No hepatosplenomegaly, normal bowel sounds, no guarding or rigidity. SPINE: No scoliosis or deformity SKIN: No rashes CENTRAL NERVOUS SYSTEM: No focal deficits, tone is normal in all 4 extremities. EXTREMITIES: There is no peripheral edema. No clubbing, no cyanosis. Peripheral pulses are intact. - Labs CBC & Chem 7: 08/31/18 05:11 08/31/18 05:11 Labs: Abnormal Lab Results - Last 24 Hours (Table) 08/30/18 08/30/18 08/31/18 Range/Units 11:16 20:37 05:11 WBC (3.8-10.6) k/uL MCHC (31.0-37.0) g/dL Neutrophils # (1.3-7.7) k/uL Lymphocytes # (1.0-4.8) k/uL PT 34.1 H (9.0-12.0) sec INR 3.5 H (<1.2) Sodium (137-145) mmol/L Potassium (3.5-5.1) mmol/L Chloride (98-107) mmol/L BUN (9-20) mg/dL Glucose (74-99) mg/dL POC Glucose (mg/dL) 103 H 104 H (75-99) mg/dL Calcium (8.4-10.2) mg/dL 08/31/18 08/31/18 08/31/18 Range/Units 05:11 05:11 06:56 WBC 21.8 H (3.8-10.6) k/uL MCHC 30.9 L (31.0-37.0) g/dL Neutrophils # 20.7 H (1.3-7.7) k/uL Lymphocytes # 0.2 L (1.0-4.8) k/uL PT (9.0-12.0) sec INR (<1.2) Sodium 136 L (137-145) mmol/L Potassium 5.3 H (3.5-5.1) mmol/L Chloride 109 H (98-107) mmol/L BUN 65 H (9-20) mg/dL Glucose 112 H (74-99) mg/dL POC Glucose (mg/dL) 124 H (75-99) mg/dL Calcium 11.4 H (8.4-10.2) mg/dL Microbiology - Last 24 Hours (Table) 08/26/18 15:16 Blood Culture - Preliminary Blood No Growth after 96 hours 08/28/18 13:00 Gram Stain - Final Sputum Sputum Culture - Final Agnieszka albicans Assessment and Plan Assessment: Impression: #1 Acute on chronic hypoxic respiratory failure secondary to an acute exacerbation of chronic obstructive pulmonary disease complicated by post obst ructive right lung pneumonia, right pleural effusion. Currently on 12 L high flow nasal cannula. #2 Recent diagnosis of stage III lung cancer, squamous cell carcinoma. #3 Chronic obstructive pulmonary disease. #4 Chronic heavy tobacco dependence, has since quit. #5 Hyperlipidemia. #6 Hypertension. #7 Atrial fibrillation, anticoagulated with warfarin, subtherapeutic. #8 Osteoarthritis. #9 History of MRSA infection of the left elbow. Plan: The patient was seen and evaluated by Dr. Hood. CAT scan, chest x-ray and labs all reviewed. We'll obtain ultrasound of the right chest to determine if there is any free flowing fluid for thoracentesis. Hold his warfarin. Continue with antibiotics in the form of vancomycin, Zosyn and Levaquin. Continue bronchodilators. Titrate down the FiO2 as tolerated. The patient's overall prognosis remains quite guarded. The plan was reviewed and discussed with the patient, his and 3 of his children. We'll keep him in the intensive care unit for now. We will continue to follow and make further recommendations based on his clinical status. I, the cosigning physician, performed a history & physical examination of the patient. Lungs sounds crackles, diminished in the right lung base Maintaining good O2 saturations in the 90s on 12 L high flow nasal cannula. I discussed the assessment and plan of care with my nurse practitioner, Tiffany Taylor. I attest to the above consultation as dictated by her.
[2018-08-31] MEDS: FORMOTEROL FUMARATE 20 MCG/2 ML NEBU INHALATION SCH ×2 (09:11→20:57)
[2018-08-31] MEDS: BUDESONIDE 1 MG/2 ML NEBU INHALATION SCH ×2 (09:11→20:42)
[2018-08-31 12:04] LABS: Glucose,Whole Blood 122 mg/dL (75-99)
[2018-08-31] MEDS: FLUTICASONE 50MCG/SPRAY NASAL 16GM EA NOSTRIL SCH (12:23)
[2018-08-31] MEDS: VANCOMYCIN 1,500 MG in SODIUM CHLORIDE 0.9% 250 ML IVPB SCH ×2 (12:23→23:19)
[2018-08-31] MEDS: LEVOFLOXACIN 750MG-D5W PMX 750 MG in DEXTROSE/WATER 1 150ML.BAG IVPB SCH (12:23)
[2018-08-31] MEDS ORDERED: PHYTONADIONE ORAL 5 MG/5 ML ORAL.SYRG PO STA (13:22)
--- NOTE | 2018-08-31 13:34 | US ---
EXAMINATION TYPE: US chest DATE OF EXAM: 08/31/2018 COMPARISON: Chest x-ray 08/31/2018 CLINICAL HISTORY: Right pleural effusion. Pneumonia right pleural effusion. TECHNIQUE: Targeted ultrasound of the posterior lower right hemithorax EXAM MEASUREMENTS: Right Pleural Effusion pocket size: 16 cm Right skin surface to fluid distance: 2.6 cm No significant pleural effusion noted on the left. Right side marked for possible thoracentesis outside the dept. Pulmonologists are able to review the images in the patient?s EMR. Lung tissue note at 4.6 cm in fluid pocket. Marked for possible thoracentesis. IMPRESSIONS: Large right pleural effusion.
[2018-08-31] MEDS ORDERED: ONDANSETRON 4 MG/2 ML VIAL IVP PRN (14:29)
--- NOTE | 2018-08-31 14:57 | P.PN ---
Subjective Progress Note Date: 08/31/18 Principal diagnosis: LUIS EDUARDO, Squamous cell lung cancer, was due to start treatment Patient is seen in the intensive care unit, family is at the bedside. Patient continues to be extremely short of breath with any type of activity, patient is unable to complete several words of a sentence before having problems breathing, respiratory rate is noted to be in the 25-35 range consistently, patient is tolerating liquids. Objective - Vital Signs Vital signs: Vital Signs Temp 97.6 F 08/31/18 13:00 Pulse 80 08/31/18 14:00 Resp 34 H 08/31/18 14:00 BP 103/60 08/31/18 14:00 Pulse Ox 89 L 08/31/18 14:00 Intake & Output 08/30/18 08/31/18 08/31/18 18:59 06:59 18:59 Intake Total 250 600 830 Output Total 900 980 555 Balance -650 -380 275 Weight 83 kg 83.8 kg Intake: IV 500 70 .9 150 70 Piperacillin-Tazobactam 3 100 .375 gm In Sodium Chloride 0.9% 100 ml @ 25 mls/hr IVPB Q8H [facility] Rx#: [id number] Vancomycin 1,500 mg In 250 Sodium Chloride 0.9% 250 ml @ 125 mls/hr IVPB ONCE ONE Rx#:[id number] Intake, IV Titration 250 400 Amount Levofloxacin 750Mg-D5w 150 Pmx 750 mg In Dextrose/ Water 1 150ml.bag @ 100 mls/hr IVPB Q24H [facility] Rx#: [id number] Vancomycin 1,500 mg In 250 Sodium Chloride 0.9% 250 ml @ 125 mls/hr IVPB ONCE ONE Rx#:[id number] Vancomycin 1,500 mg In 250 Sodium Chloride 0.9% 250 ml @ 125 mls/hr IVPB Q12H [facility] Rx#:[id number] Oral 100 360 Output: Urine 900 980 555 Straight 900 Other: Voiding Method Urinal Indwelling Catheter Indwelling Catheter - Constitutional General appearance: Present: cooperative, severe distress, thin - EENT EENT Comment(s): Dry mucous membranes from mouth breathing Eyes: Present: anicteric sclerae, EOMI - Respiratory Details: Increased respiratory effort visible, no stridor Respiratory: right: other (Absent), bilateral: CTA (Harsh breath sounds) - Cardiovascular Rhythm: regular Heart sounds: normal: S1, S2 Abnormal Heart Sounds: Absent: systolic murmur, diastolic murmur, rub, S3 Gallop, S4 Gallop, click, other - Gastrointestinal General gastrointestinal: Present: normal bowel sounds, soft - Musculoskeletal Musculoskeletal: Present: generalized weakness - Psychiatric Psychiatric Comment(s): Patient responding to yes and no questions only, he is visibly very fatigued - Labs CBC & Chem 7: 08/31/18 05:11 08/31/18 05:11 Labs: Abnormal Lab Results - Last 24 Hours (Table) 08/30/18 08/31/18 08/31/18 Range/Units 20:37 05:11 05:11 WBC (3.8-10.6) k/uL MCHC (31.0-37.0) g/dL Neutrophils # (1.3-7.7) k/uL Lymphocytes # (1.0-4.8) k/uL PT 34.1 H (9.0-12.0) sec INR 3.5 H (<1.2) Sodium 136 L (137-145) mmol/L Potassium 5.3 H (3.5-5.1) mmol/L Chloride 109 H (98-107) mmol/L BUN 65 H (9-20) mg/dL Glucose 112 H (74-99) mg/dL POC Glucose (mg/dL) 104 H (75-99) mg/dL Calcium 11.4 H (8.4-10.2) mg/dL 08/31/18 08/31/18 08/31/18 Range/Units 05:11 06:56 11:53 WBC 21.8 H (3.8-10.6) k/uL MCHC 30.9 L (31.0-37.0) g/dL Neutrophils # 20.7 H (1.3-7.7) k/uL Lymphocytes # 0.2 L (1.0-4.8) k/uL PT (9.0-12.0) sec INR (<1.2) Sodium (137-145) mmol/L Potassium (3.5-5.1) mmol/L Chloride (98-107) mmol/L BUN (9-20) mg/dL Glucose (74-99) mg/dL POC Glucose (mg/dL) 124 H 122 H (75-99) mg/dL Calcium (8.4-10.2) mg/dL Microbiology - Last 24 Hours (Table) 08/26/18 15:16 Blood Culture - Preliminary Blood No Growth after 96 hours - Imaging and Cardiology Chest x-ray: report reviewed Ultrasound of the chest report reviewed Assessment and Plan (1) Squamous cell lung cancer Narrative/Plan: Plan was to initiate concurrent chemo/XRT earlier this week but, unfortunately pt respiratory status declined. Case was discussed with Radiation Oncology. They will review patient's images to see if radiation can play a role in improving patient's respiratory status, i.e. extrinsic compression of a bronchus from tumor-but currently pt condition would not be amenable to positioning for radiation. Will await recommendations and plan from Pulmonary (patient was shown to have a right pleural effusion that has been marked for thoracentesis). Current Visit: Yes Status: Acute Priority: High Code(s): C34.90 - MALIGNANT NEOPLASM OF UNSP PART OF UNSP BRONCHUS OR LUNG SNOMED Code(s): 462745773 (2) Hypercalcemia of malignancy Narrative/Plan: Patient's calcium has been elevated since admission, overall stable at this time. Will review the patient's EMR and office chart to see if there was bisphosphonate or rank ligand inhibitor therapy given recently, if not, will order. Labs daily. Current Visit: Yes Status: Acute Priority: Medium Code(s): E83.52 - HYPERCALCEMIA SNOMED Code(s): 28297320
[2018-08-31] MEDS ORDERED: ZOLEDRONIC ACID 4 MG in SODIUM CHLORIDE 0.9% 100 ML IV ONE (16:00)
--- NOTE | 2018-08-31 16:23 | P.PN ---
Subjective Progress Note Date: 08/31/18 Principal diagnosis: This is an 83-year-old male that was admitted for COPD exacerbation with pneumonia. Patient was recently just moved the ICU today for worsening of his respiratory status. Patient was having labored breathing with increasing respirations. Patient is being closely monitored. Patient is hard of hearing but denies any chest pain or palpitations at this time. Oncology is following the patient as well as the patient recently had a needle biopsy showing he was positive for metastasis of squamous cell lung cancer. Patient was expected to start treatment shortly. 08/31/2018 This is an 83-year-old male that was admitted for COPD exacerbation with pneumon ia. The patient is currently still in the ICU and states that his breathing has not improved since yesterday. Patient states that he is having a lot of difficulty in breathing and shortness of breath. Patient's respirations are approximately 32/m at this time. Patient is currently on high flow oxygen at 15 L. Patient denies any chest pain, or palpitations at this time. Patient is having a little bit of nausea and hasn't been eating well per family but is drinking small sips. Dr. Hood is closely following the patient. Oncology is following as well. Chest x-ray from today shows a right pleural effusion no chest ultrasound with markings was done today. Patient is to have a thorace ntesis done in the morning. Family is at the bedside. They were concerned because he hasn't had a bowel movement since he has been here in the last 5 days. Dulcolax suppository when necessary was ordered. Zofran was also ordered as needed if the patient continues to have nausea. Objective - Vital Signs Vital signs: Vital Signs Temp 97.6 F 08/31/18 13:00 Pulse 86 08/31/18 16:04 Resp 32 H 08/31/18 15:00 BP 118/80 08/31/18 15:00 Pulse Ox 90 L 08/31/18 15:00 Intake & Output 08/30/18 08/31/18 08/31/18 18:59 06:59 18:59 Intake Total 250 600 850 Output Total 900 271 675 Balance -650 -380 175 Weight 83 kg 83.8 kg Intake: IV 500 90 .9 150 90 Piperacillin-Tazobactam 3 100 .375 gm In Sodium Chloride 0.9% 100 ml @ 25 mls/hr IVPB Q8H [facility] Rx#: [id number] Vancomycin 1,500 mg In 250 Sodium Chloride 0.9% 250 ml @ 125 mls/hr IVPB ONCE ONE Rx#:[id number] Intake, IV Titration 250 400 Amount Levofloxacin 750Mg-D5w 150 Pmx 750 mg In Dextrose/ Water 1 150ml.bag @ 100 mls/hr IVPB Q24H [facility] Rx#: [id number] Vancomycin 1,500 mg In 250 Sodium Chloride 0.9% 250 ml @ 125 mls/hr IVPB ONCE ONE Rx#:[id number] Vancomycin 1,500 mg In 250 Sodium Chloride 0.9% 250 ml @ 125 mls/hr IVPB Q12H [facility] Rx#:[id number] Oral 100 360 Output: Urine 900 980 675 Straight 900 Other: Voiding Method Urinal Indwelling Catheter Indwelling Catheter - Exam Gen: This is a 83-year-old male sitting straight up in bed in mild acute distress with increasing respirations and labored breathing. Patient is still currently on high flow oxygen at 15 L. Vital signs are 97.6F, pulse is 90, blood pressure is 103/67, respirations are 32, oxygen saturation is between 87 and 89% HEENT: Head is atraumatic, normocephalic. Pupils equal, round. Sclerae is anicteric. NECK: Supple. No JVD. No lymphadenopathy. No thyromegaly. LUNGS: Diminished bilaterally with expiratory wheezing noted. Accessory muscle use noted on exam HEART: Regular rate and rhythm. No murmur. ABDOMEN: Soft. Bowel sounds are present. No masses. No tenderness. EXTREMITIES: No pedal edema. No calf tenderness. NEUROLOGICAL: Patient is awake, alert and oriented x3. Patient is hard of hearing but responds to commands appropriately. Anxious in appearance. Cranial nerves 2 through 12 are grossly intact. - Labs CBC & Chem 7: 08/31/18 05:11 08/31/18 05:11 Labs: Abnormal Lab Results - Last 24 Hours (Table) 08/30/18 08/31/18 08/31/18 Range/Units 20:37 05:11 05:11 WBC (3.8-10.6) k/uL MCHC (31.0-37.0) g/dL Neutrophils # (1.3-7.7) k/uL Lymphocytes # (1.0-4.8) k/uL PT 34.1 H (9.0-12.0) sec INR 3.5 H (<1.2) Sodium 136 L (137-145) mmol/L Potassium 5.3 H (3.5-5.1) mmol/L Chloride 109 H (98-107) mmol/L BUN 65 H (9-20) mg/dL Glucose 112 H (74-99) mg/dL POC Glucose (mg/dL) 104 H (75-99) mg/dL Calcium 11.4 H (8.4-10.2) mg/dL 08/31/18 08/31/18 08/31/18 Range/Units 05:11 06:56 11:53 WBC 21.8 H (3.8-10.6) k/uL MCHC 30.9 L (31.0-37.0) g/dL Neutrophils # 20.7 H (1.3-7.7) k/uL Lymphocytes # 0.2 L (1.0-4.8) k/uL PT (9.0-12.0) sec INR (<1.2) Sodium (137-145) mmol/L Potassium (3.5-5.1) mmol/L Chloride (98-107) mmol/L BUN (9-20) mg/dL Glucose (74-99) mg/dL POC Glucose (mg/dL) 124 H 122 H (75-99) mg/dL Calcium (8.4-10.2) mg/dL Microbiology - Last 24 Hours (Table) 08/26/18 15:16 Blood Culture - Preliminary Blood No Growth after 96 hours Assessment and Plan Assessment: Pneumonia, suspect gram-negative organism, present on arrival Acute severe COPD exacerbation Metabolic encephalopathy Acute hypoxic respiratory failure severe, from underlying COPD Chronic nicotine dependence: Patient is still cigarette smoker Metastasis, squamous cell lung cancer, awaiting treatment Persistent atrial fibrillation Hyperlipidemia Hypercalcemia. Calcium is 11.4. Oncology is following and made aware. Essential hypertension Primary osteoarthritis Right pleural effusion: Plan is for thoracentesis in the morning Nausea: Zofran when necessary ordered Constipation: Dulcolax when necessary ordered, Colace GI prophylaxis Recommendations and discussion Recommend continuing current medication and symptomatic management. Patient will be monitored in the ICU closely. Prognosis is guarded. We'll continue with bronchodilators, steroids, and antibiotics at this time. Further recommendations to follow. Will await thoracentesis report. Oncology and pulmonary are following closely.
[2018-08-31] MEDS ORDERED: BISACODYL 10 MG SUPP RECTAL PRN (16:25)
[2018-08-31 16:59] LABS: Glucose,Whole Blood 97 mg/dL (75-99)
[2018-08-31 17:09] LABS: Appearance,Urine Cloudy (Clear); Bilirubin,Urine Negative (Negative); Blood,Urine Large (Negative); Color,Urine Yellow; Glucose,Urine (UA) Negative (Negative); Ketones,Urine Negative (Negative); Leukocyte Esterase,Urine Moderate (Negative); Mucus,Urine Rare /hpf; Nitrite,Urine Negative (Negative); Protein,Urine Trace (Negative); RBC,Urine >182 /hpf (0-5); Specific Gravity,Urine 1.025 (1.001-1.035); Urobilinogen,Urine <2.0 mg/dL (<2.0); WBC,Urine 21 /hpf (0-5)
[2018-08-31] MEDS: METOPROLOL SUCCINATE (ER) 50 MG TAB.ER.24H PO SCH (21:11)
[2018-08-31] MEDS: amLODIPine 5 MG TAB PO SCH (21:11)
[2018-08-31] MEDS: ATORVASTATIN 10 MG TAB PO SCH (21:11)
[2018-08-31] MEDS: PANTOPRAZOLE 40 MG/10 ML VIAL IVP SCH (21:11)
[2018-08-31] MEDS: ARTIFICIAL TEARS-HYPROMELLOSE DROPS 15 ML BTL BOTH EYES SCH (21:12)
[2018-08-31 21:27] LABS: Glucose,Whole Blood 86 mg/dL (75-99)
[2018-09-01] MEDS: IPRATROPIUM-ALBUTEROL 3 ML NEB INHALATION SCH ×6 (03:38→23:26)
[2018-09-01] MEDS: methylPREDNISolone SOD SUCCI 40 MG/ML 1 ML VIAL IV SCH ×3 (05:29→17:19)
[2018-09-01] MEDS: PIPERACILLIN-TAZOBACTAM 3.375 GM in SODIUM CHLORIDE 0.9% 100 ML IVPB SCH ×3 (05:30→21:53)
[2018-09-01 06:01] LABS: Basophils % (A) 0 %; Eosinophils % (A) 0 %; HCT 42.4 % (39.0-53.0); Lymphocytes # (A) 0.2 k/uL (1.0-4.8); Lymphocytes % (A) 1 %; MCH 29.4 pg (25.0-35.0); MCHC 30.6 g/dL (31.0-37.0); MCV 95.9 fL (80.0-100.0); Mean Platelet Volume 8.5; Monocytes # (A) 0.7 k/uL (0-1.0); Monocytes % (A) 4 %; Neutrophils # (A) 18.6 k/uL (1.3-7.7); Neutrophils % (A) 95 %; Platelet Count 210 k/uL (150-450); RBC 4.42 m/uL (4.30-5.90); RDW 13.8 % (11.5-15.5); WBC 19.6 k/uL (3.8-10.6)
[2018-09-01 06:23] LABS: INR 2.3 (<1.2); Prothrombin Time 22.4 sec (9.0-12.0)
[2018-09-01 06:54] LABS: Calcium 11.6 mg/dL (8.4-10.2); Potassium 5.1 mmol/L (3.5-5.1)
[2018-09-01] MEDS: INSULIN ASPART (NovoLOG) 100 UNIT/ML VIAL SQ SCH ×4 (07:08→22:02)
--- NOTE | 2018-09-01 07:59 | XR ---
EXAMINATION TYPE: XR chest 1V DATE OF EXAM: 09/01/2018 COMPARISON: Prior chest x-ray 08/31/2018 HISTORY: COPD, pneumonia TECHNIQUE: Single frontal view of the chest is obtained. FINDINGS: Findings are similar to prior exam. There is a right pleural effusion. Underlying perihila r mass, prominence of interstitium again noted. Heart is stable. No pneumothorax. Mediastinal fullnes s is present. IMPRESSION: Stable findings. Mediastinal and hilar adenopathy, right hilar mass
[2018-09-01] MEDS: FORMOTEROL FUMARATE 20 MCG/2 ML NEBU INHALATION SCH ×2 (08:11→20:32)
[2018-09-01] MEDS: BUDESONIDE 1 MG/2 ML NEBU INHALATION SCH ×2 (08:11→20:21)
[2018-09-01] MEDS: DIGOXIN 250 MCG TAB PO SCH (08:39)
[2018-09-01] MEDS: PANTOPRAZOLE 40 MG/10 ML VIAL IVP SCH (08:39)
[2018-09-01] MEDS: ALLOPURINOL 100 MG TAB PO SCH (08:39)
[2018-09-01] MEDS: FLUTICASONE 50MCG/SPRAY NASAL 16GM EA NOSTRIL SCH (08:39)
[2018-09-01] MEDS: guaiFENesin 600 MG TABLET.ER PO SCH ×2 (08:39→21:52)
[2018-09-01] MEDS ORDERED: PHYTONADIONE 5 MG in SODIUM CHLORIDE 0.9% 50 ML IVPB STA (08:41)
[2018-09-01] MEDS: SODIUM CHLORIDE 0.9% 1,000 ML IV SCH ×2 (09:30→20:39)
--- NOTE | 2018-09-01 10:09 | P.PN ---
Subjective Progress Note Date: 09/01/18 Principal diagnosis: Acute on chronic hypoxic respiratory failure secondary to an acute exacerbation of chronic obstructive pulmonary disease, complicated by post obstructive right lung pneumonia. This is a very pleasant 83-year-old gentleman who follows with Dr. Munoz as his primary care physician. 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 Has has significant COPD treated with Advair, Spiriva, albuterol and had been seen by our group back in 2016 was noted to have abnormal CAT scan. He had undergone bronchoscopy with biopsies which were negative for malignancy. Still concerned regarding possible cancer he was referred to Dr. Oni Pond at [facility] at which time he had undergone a right-sided VATS procedure with wedge resection and mediastinal lymph node biopsies. The results of that were consistent with inflammation and suspected pseudotumor. He had been undergoing serial follow-up chest x-rays through them and there was continued suspicion for lung cancer. 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 He was just to start his initial treatment with chemo and radiation here at [facility] yesterday but has been having issues with ongoing and worsening shortness of breath over the past month and presented here to the emergency room for the same. Of note, he was admitted here earlier this same month for COPD exacerbation. He was not seen by pulmonary at that time. Discharged home on 08/17/2018 on azithromycin and a prednisone taper. Chest x-ray reveals evidence of COPD with bilateral infiltrates right greater than left and small effusions. There is also bilateral hilar enlargement with evidence of adenopathy. He is requiring 5 L high flow nasal cannula to maintain O2 saturations in the 90s. White count 20.4. Hemoglobin 14.5. Platelet count 279,000. INR 8.8. ProBNP 1370. Initial lactic 2.5, currently 2.0. Creatinine 0.86. He has been initiated and DuoNeb inhalations, Pulmicort and Perforomist inhalations, IV Solu-Medrol. He is on antibiotics in the form of ceftriaxone and azithromycin. The patient is seen today 08/31/2018 in follow-up in the intensive care unit. He is on 12 L high flow nasal cannula. He is feeling about the same as compared to yesterday. No significant improvements in his pulmonary status. He has been transitioned to vancomycin, Zosyn and Levaquin. CAT scan of the chest revealed prior wedge resection along the right upper to mid lung. There is extensive conglomerate mediastinal lymphadenopathy with soft tissue thickening measuring up to 3.2 cm in the subcarinal region. Additional soft tissue encases the right hilum, narrowing the bronchus intermedius and had soft the right middle lobe bronchus. There is also left hilar lymphadenopathy and a right upper lobe nodule measuring 1.4 cm. Moderate right effusion with prominent adjacent atelectasis. There is reticular nodularity throughout the right lung business banking representative congestion from hilar encasement versus pneumonitis. Moderate amount of emphysema. There is also layering secretions and debris in the distal tracheal place and the patient risk for aspiration. Today's chest x-ray shows apical pleural thickening on the right. Perihilar increased density persists. Right hemidiaphragm is obscured. Interstitium is increased in the right hemithorax. No pneumothorax. Sputum culture positive for Agnieszka. Blood cultures reveal no growth. White count 21.8. Hemoglobin 13.3. INR 3.5. Sodium 136. Potassium 5.3. Creatinine 1.07. The patient is seen today 09/01/2017 in follow-up in the intensive care unit. He has been requiring 15 L high flow nasal cannula to maintain O2 saturations in the low 90s. Chest x-ray reveals right pleural effusion, underlying perihilar mass and prominence of the interstitium. Mediastinal fullness. Ultrasound of the right chest revealed a large right pleural effusion measuring 16 cm. He has been afebrile. Remains in atrial fibrillation with some tachycardia. Tachypneic. Blood pressure stable. Patient culture with Agnieszka otherwise no growth. Blood culture reveals no growth. Urine culture is pending. White c ount 19.6. Hemoglobin 13.0. INR 2.3. Creatinine 1.39. He had been given vitamin K yesterday and again this morning. He did undergo a right-sided thoracentesis by Dr. Hood and 1700 ML's of bloody return. Sent for cultures and cytology. Follow-up chest x-ray revealed no pneumothorax and significant improvement in the right pleural effusion. Objective - Vital Signs Vital signs: Vital Signs Temp 98.1 F 09/01/18 08:00 Pulse 129 H 09/01/18 09:00 Resp 35 H 09/01/18 09:00 BP 132/72 09/01/18 09:00 Pulse Ox 90 L 09/01/18 09:00 Intake & Output 08/31/18 09/01/18 09/01/18 18:59 06:59 18:59 Intake Total 1320 720 340 Output Total 835 975 275 Balance 485 -255 65 Weight 83.3 kg Intake: IV 220 570 80 .9 120 120 30 Phytonadione 5 mg In 50 Sodium Chloride 0.9% 50 ml @ 100 mls/hr IVPB ONCE [facility] Rx#:[id number] Piperacillin-Tazobactam 3 100 200 .375 gm In Sodium Chloride 0.9% 100 ml @ 25 mls/hr IVPB Q8H [facility] Rx#: [id number] Vancomycin 1,500 mg In 250 Sodium Chloride 0.9% 250 ml @ 125 mls/hr IVPB Q12H [facility] Rx#:[id number] Intake, IV Titration 500 Amount Levofloxacin 750Mg-D5w 150 Pmx 750 mg In Dextrose/ Water 1 150ml.bag @ 100 mls/hr IVPB Q24H [facility] Rx#: [id number] Vancomycin 1,500 mg In 250 Sodium Chloride 0.9% 250 ml @ 125 mls/hr IVPB Q12H [facility] Rx#:[id number] Zoledronic Acid 4 mg In 100 Sodium Chloride 0.9% 100 ml @ 315 mls/hr IV ONCE ONE Rx#:[id number] Oral 600 150 260 Output: Urine 835 975 275 Other: Voiding Method Indwelling Catheter Indwelling Catheter - Exam GENERAL EXAM: Very pleasant 83-year-old gentleman. Alert, in mild respiratory distress. On 15 L high flow nasal cannula. HEAD: Normocephalic. EYES: Normal reaction of pupils, equal size. NOSE: Clear with pink turbinates. THROAT: No erythema or exudates. NECK: No masses, no JVD. CHEST: No chest wall deformity. LUNGS: Equal air entry and crackles, scattered rhonchi, diminished in the right lung base. CVS: S1 and S2 normal with no audible murmur, irregular rhythm. ABDOMEN: No hepatosplenomegaly, normal bowel sounds, no guarding or rigidity. SPINE: No scoliosis or deformity SKIN: No rashes CENTRAL NERVOUS SYSTEM: No focal deficits, tone is normal in all 4 extremities. EXTREMITIES: There is no peripheral edema. No clubbing, no cyanosis. Peripheral pulses are intact. - Labs CBC & Chem 7: 09/01/18 05:29 09/01/18 05:29 Labs: Abnormal Lab Results - Last 24 Hours (Table) 08/31/18 08/31/18 09/01/18 Range/Units 11:53 16:15 05:29 WBC (3.8-10.6) k/uL MCHC (31.0-37.0) g/dL Neutrophils # (1.3-7.7) k/uL Lymphocytes # (1.0-4.8) k/uL PT 22.4 H (9.0-12.0) sec INR 2.3 H (<1.2) Chloride (98-107) mmol/L Carbon Dioxide (22-30) mmol/L BUN (9-20) mg/dL Creatinine (0.66-1.25) mg/dL POC Glucose (mg/dL) 122 H (75-99) mg/dL Calcium (8.4-10.2) mg/dL Urine Protein Trace H (Negative) Urine Blood Large H (Negative) Ur Leukocyte Esterase Moderate H (Negative) Urine RBC >182 H (0-5) /hpf Urine WBC 21 H (0-5) /hpf Urine Mucus Rare H (None) /hpf 09/01/18 09/01/18 Range/Units 05:29 05:29 WBC 19.6 H (3.8-10.6) k/uL MCHC 30.6 L (31.0-37.0) g/dL Neutrophils # 18.6 H (1.3-7.7) k/uL Lymphocytes # 0.2 L (1.0-4.8) k/uL PT (9.0-12.0) sec INR (<1.2) Chloride 109 H (98-107) mmol/L Carbon Dioxide 21 L (22-30) mmol/L BUN 69 H (9-20) mg/dL Creatinine 1.39 H (0.66-1.25) mg/dL POC Glucose (mg/dL) (75-99) mg/dL Calcium 11.6 H (8.4-10.2) mg/dL Urine Protein (Negative) Urine Blood (Negative) Ur Leukocyte Esterase (Negative) Urine RBC (0-5) /hpf Urine WBC (0-5) /hpf Urine Mucus (None) /hpf Microbiology - Last 24 Hours (Table) 08/31/18 16:15 Urine Culture - Preliminary Urine,Catheterized 08/26/18 15:16 Blood Culture - Preliminary Blood No Growth after 120 hours Assessment and Plan Assessment: Impression: #1 Acute on chronic hypoxic respiratory failure secondary to an acute exacerbation of chronic obstructive pulmonary disease complicated by post obstructive right lung pneumonia, right pleural effusion. Currently on 15 L high flow nasal cannula. Status post right-sided thoracentesis with 1700 ML's of thick bloody fluid returned. Cultures and cytology pending. #2 Recent diagnosis of stage III lung cancer, squamous cell carcinoma. #3 Chronic obstructive pulmonary disease. #4 Chronic heavy tobacco dependence, has since quit. #5 Hyperlipidemia. #6 Hypertension. #7 Atrial fibrillation, anticoagulated with warfarin, subtherapeutic. #8 Osteoarthritis. #9 History of MRSA infection of the left elbow. Plan: The patient was seen and evaluated by Dr. Hood. Chest x-ray and labs all reviewed. He did perform a right-sided thoracentesis this morning with 1700 ML's of thick bloody fluid returned. Cultures and cytology are pending. Continue with antibiotics in the form of vancomycin, Zosyn and Levaquin. Continue bronchodilators. Titrate down the FiO2 as tolerated. The patient's overall prognosis remains quite guarded. The plan was reviewed and discussed with the patient, his and 3 of his children. We'll keep him in the intensive care unit for now. We will continue to follow and make further recom mendations based on his clinical status. I, the cosigning physician, performed a history & physical examination of the patient. Lungs sounds crackles, rhonchi, diminished in the right lung base Maintaining good O2 saturations in the 90s on 15 L high flow nasal cannula. I discussed the assessment and plan of care with my nurse practitioner, Tiffany Taylor. I attest to the above consultation as dictated by her.
--- NOTE | 2018-09-01 10:09 | XR ---
EXAMINATION TYPE: XR chest 1V portable DATE OF EXAM: 09/01/2018 COMPARISON: Prior chest x-ray same dated earlier time HISTORY: Status post thoracentesis TECHNIQUE: Single frontal view of the chest is obtained. FINDINGS: Interval improved visualization of the right hemidiaphragm, improved aeration at the right lung base. No pneumothorax. IMPRESSION: No evident complication status post thoracentesis.
--- NOTE | 2018-09-01 10:20 | P.PN ---
Subjective Progress Note Date: 09/01/18 Principal diagnosis: This is an 83-year-old male that was admitted for COPD exacerbation with pneumonia. Patient was recently just moved the ICU today for worsening of his respiratory status. Patient was having labored breathing with increasing respirations. Patient is being closely monitored. Patient is hard of hearing but denies any chest pain or palpitations at this time. Oncology is following the patient as well as the patient recently had a needle biopsy showing he was positive for metastasis of squamous cell lung cancer. Patient was expected to start treatment shortly. 08/31/2018 This is an 83-year-old male that was admitted for COPD exacerbation with pneumon ia. The patient is currently still in the ICU and states that his breathing has not improved since yesterday. Patient states that he is having a lot of difficulty in breathing and shortness of breath. Patient's respirations are approximately 32/m at this time. Patient is currently on high flow oxygen at 15 L. Patient denies any chest pain, or palpitations at this time. Patient is having a little bit of nausea and hasn't been eating well per family but is drinking small sips. Dr. Hood is closely following the patient. Oncology is following as well. Chest x-ray from today shows a right pleural effusion no chest ultrasound with markings was done today. Patient is to have a thorace ntesis done in the morning. Family is at the bedside. They were concerned because he hasn't had a bowel movement since he has been here in the last 5 days. Dulcolax suppository when necessary was ordered. Zofran was also ordered as needed if the patient continues to have nausea. 09/01/2018 Patient is sitting upright in bed having some respiratory distress and no real improvement from yesterday. Patient family is at the bedside and states that his breathing has gotten worse. Patient is denying any chest pain or palpitations at this time. Patient denies any vomiting or abdominal discomfort at this time. Patient is still having occasional waves of nausea but not eating very well at all. Patient states that he doesn't have much of an appetite. Patient is receiving some Vitamin K this morning IV as he is to have a right thoracentesis with Dr. Hood. Will await report from the procedure. Will continue to monitor closely. Patient is still currently on high flow 02 via NC at 15L. Objective - Vital Signs Vital signs: Vital Signs Temp 98.1 F 09/01/18 08:00 Pulse 129 H 09/01/18 09:00 Resp 35 H 09/01/18 09:00 BP 132/72 09/01/18 09:00 Pulse Ox 90 L 09/01/18 09:00 Intake & Output 08/31/18 09/01/18 09/01/18 18:59 06:59 18:59 Intake Total 1320 720 340 Output Total 835 975 275 Balance 485 -255 65 Weight 83.3 kg Intake: IV 220 570 80 .9 120 120 30 Phytonadione 5 mg In 50 Sodium Chloride 0.9% 50 ml @ 100 mls/hr IVPB ONCE [facility] Rx#:[id number] Piperacillin-Tazobactam 3 100 200 .375 gm In Sodium Chloride 0.9% 100 ml @ 25 mls/hr IVPB Q8H [facility] Rx#: [id number] Vancomycin 1,500 mg In 250 Sodium Chloride 0.9% 250 ml @ 125 mls/hr IVPB Q12H [facility] Rx#:[id number] Intake, IV Titration 500 Amount Levofloxacin 750Mg-D5w 150 Pmx 750 mg In Dextrose/ Water 1 150ml.bag @ 100 mls/hr IVPB Q24H [facility] Rx#: [id number] Vancomycin 1,500 mg In 250 Sodium Chloride 0.9% 250 ml @ 125 mls/hr IVPB Q12H [facility] Rx#:[id number] Zoledronic Acid 4 mg In 100 Sodium Chloride 0.9% 100 ml @ 315 mls/hr IV ONCE [facility] Rx#:[id number] Oral 600 150 260 Output: Urine 835 975 275 Other: Voiding Method Indwelling Catheter Indwelling Catheter - Exam Gen: This is a 83-year-old male sitting straight up in bed in mild acute d istress with increasing respirations and labored breathing. Patient is still currently on high flow oxygen at 15 L. No improvement from yesterday. Vital signs are 98.1F, pulse is 110, blood pressure is 126/76, respirations are 33, oxygen saturation is between 88 and 89% HEENT: Head is atraumatic, normocephalic. Pupils equal, round. Sclerae is anicteric. NECK: Supple. No JVD. No lymphadenopathy. No thyromegaly. LUNGS: Diminished bilaterally with expiratory wheezing noted. Accessory muscle use noted on exam HEART: Regular rate and rhythm. No murmur. ABDOMEN: Soft. Bowel sounds are present. No masses. No tenderness. EXTREMITIES: No pedal edema. No calf tenderness. NEUROLOGICAL: Patient is awake, alert and oriented x3. Patient is hard of hearing but responds to commands appropriately. Anxious in appearance. Cranial nerves 2 through 12 are grossly intact. Labs: WBC 19.6, BUN 69, CR 1.39, Digoxin level 1.4, Calcium 11.6, Potassium is 5.1 - Labs CBC & Chem 7: 09/01/18 05:29 09/01/18 05:29 Labs: Abnormal Lab Results - Last 24 Hours (Table) 08/31/18 08/31/18 09/01/18 Range/Units 11:53 16:15 05:29 WBC (3.8-10.6) k/uL MCHC (31.0-37.0) g/dL Neutrophils # (1.3-7.7) k/uL Lymphocytes # (1.0-4.8) k/uL PT 22.4 H (9.0-12.0) sec INR 2.3 H (<1.2) Chloride (98-107) mmol/L Carbon Dioxide (22-30) mmol/L BUN (9-20) mg/dL Creatinine (0.66-1.25) mg/dL POC Glucose (mg/dL) 122 H (75-99) mg/dL Calcium (8.4-10.2) mg/dL Urine Protein Trace H (Negative) Urine Blood Large H (Negative) Ur Leukocyte Esterase Moderate H (Negative) Urine RBC >182 H (0-5) /hpf Urine WBC 21 H (0-5) /hpf Urine Mucus Rare H (None) /hpf 09/01/18 09/01/18 Range/Units 05:29 05:29 WBC 19.6 H (3.8-10.6) k/uL MCHC 30.6 L (31.0-37.0) g/dL Neutrophils # 18.6 H (1.3-7.7) k/uL Lymphocytes # 0.2 L (1.0-4.8) k/uL PT (9.0-12.0) sec INR (<1.2) Chloride 109 H (98-107) mmol/L Carbon Dioxide 21 L (22-30) mmol/L BUN 69 H (9-20) mg/dL Creatinine 1.39 H (0.66-1.25) mg/dL POC Glucose (mg/dL) (75-99) mg/dL Calcium 11.6 H (8.4-10.2) mg/dL Urine Protein (Negative) Urine Blood (Negative) Ur Leukocyte Esterase (Negative) Urine RBC (0-5) /hpf Urine WBC (0-5) /hpf Urine Mucus (None) /hpf Microbiology - Last 24 Hours (Table) 08/31/18 16:15 Urine Culture - Preliminary Urine,Catheterized 08/26/18 15:16 Blood Culture - Preliminary Blood No Growth after 120 hours Assessment and Plan Assessment: Pneumonia, suspect gram-negative organism, present on arrival Acute severe COPD exacerbation Metabolic encephalopathy Acute hypoxic respiratory failure severe, from underlying COPD Chronic nicotine dependence: Patient is still a cigarette smoker Metastasis, squamous cell lung cancer, awaiting treatment Persistent atrial fibrillation Hyperlipidemia Hypercalcemia. Calcium is 11.6. Oncology is following and made aware. Essential hypertension Primary osteoarthritis Right pleural effusion: Plan is for thoracentesis this morning Nausea: Zofran when necessary ordered Constipation: Dulcolax when necessary ordered, Colace discontinued GI prophylaxis Recommendations and discussion Recommend continuing current medication and symptomatic management. Patient will be monitored in the ICU closely. Prognosis is guarded. We'll continue with bronchodilators, steroids, and antibiotics at this time. Further rec ommendations to follow. Will await thoracentesis report. Oncology and pulmonary are following closely.
[2018-09-01] MEDS ORDERED: VANCOMYCIN TROUGH DUE 1 EACH MISC MISCELLANE ONE (11:00)
[2018-09-01 11:51] LABS: Total Protein 4.9 g/dL (6.3-8.2)
[2018-09-01] MEDS ORDERED: LEVOFLOXACIN 750 MG TAB PO SCH (12:00)
[2018-09-01 12:14] LABS: Glucose,Whole Blood 104 mg/dL (75-99)
[2018-09-01 14:33] LABS: Appearance,BF Cloudy; Color,BF Yellow; RBC, Body Fluid 4910 /uL
[2018-09-01 14:36] LABS: Nucleated Cells, Body Fluid 390 /uL
[2018-09-01 14:38] LABS: Mononuclear WBC,Body Fluid 31 %; Polynuclear WBC,Body Fluid 69 %; Total Cells Counted,Body Fluid 100
--- NOTE | 2018-09-01 14:47 | P.PN ---
Subjective Progress Note Date: 09/01/18 Principal diagnosis: LUIS EDUARDO, Squamous cell lung cancer, was due to start treatment In follow-up today patient is still sitting in a high De Souza's position, his breathing is labored, little better color to his cheeks, more alert. He is status post a large volume thoracentesis on the right. Patient is drinking fluids and swallowing his pills. Objective - Vital Signs Vital signs: Vital Signs Temp 98.1 F 09/01/18 12:00 Pulse 82 09/01/18 14:15 Resp 28 H 09/01/18 14:15 BP 104/56 09/01/18 14:15 Pulse Ox 95 09/01/18 14:15 Intake & Output 08/31/18 09/01/18 09/01/18 18:59 06:59 18:59 Intake Total 1320 720 760 Output Total 512 383 3035 Balance 599 -674 -0505 Weight 83.3 kg Intake: IV 220 570 380 .9 120 120 30 Phytonadione 5 mg In 50 Sodium Chloride 0.9% 50 ml @ 100 mls/hr IVPB ONCE [facility] Rx#:[id number] Piperacillin-Tazobactam 3 100 200 .375 gm In Sodium Chloride 0.9% 100 ml @ 25 mls/hr IVPB Q8H [facility] Rx#: [id number] Sodium Chloride 0.9% 1, 300 000 ml @ 100 mls/hr IV . Q10H [facility] Rx#:[id number] Vancomycin 1,500 mg In 250 Sodium Chloride 0.9% 250 ml @ 125 mls/hr IVPB Q12H [facility] Rx#:[id number] Intake, IV Titration 500 Amount Levofloxacin 750Mg-D5w 150 Pmx 750 mg In Dextrose/ Water 1 150ml.bag @ 100 mls/hr IVPB Q24H [facility] Rx#: [id number] Vancomycin 1,500 mg In 250 Sodium Chloride 0.9% 250 ml @ 125 mls/hr IVPB Q12H [facility] Rx#:[id number] Zoledronic Acid 4 mg In 100 Sodium Chloride 0.9% 100 ml @ 315 mls/hr IV ONCE [facility] Rx#:[id number] Oral 600 150 380 Output: Urine 835 975 485 Other 1700 Other: Voiding Method Indwelling Catheter Indwelling Catheter Indwelling Catheter - Constitutional General appearance: Present: cooperative, mild distress, thin - EENT Eyes: Present: anicteric sclerae, EOMI ENT: Present: hearing grossly normal - Respiratory Respiratory: right: diminished (Upper and lower lobes, slight increase in aeration compared to yesterday), bilateral: rhonchi - Cardiovascular Rhythm: regular Heart sounds: normal: S1, S2 - Peripheral edema leg Peripheral Edema: bilateral: None - Gastrointestinal General gastrointestinal: Present: normal bowel sounds, soft. Absent: absent bowel sounds, decreased bowel sounds, distended, hepatomegaly, hyperactive bowel sounds, organomegaly, rigid, scaphoid, splenomegaly, tenderness, umbilical hernia, ventral hernia - Musculoskeletal Musculoskeletal: Present: generalized weakness - Psychiatric Psychiatric: Present: A&O x's 3 - Labs CBC & Chem 7: 09/01/18 05:29 09/01/18 05:29 Labs: Abnormal Lab Results - Last 24 Hours (Table) 08/31/18 09/01/18 09/01/18 Range/Units 16:15 05:29 05:29 WBC (3.8-10.6) k/uL MCHC (31.0-37.0) g/dL Neutrophils # (1.3-7.7) k/uL Lymphocytes # (1.0-4.8) k/uL PT 22.4 H (9.0-12.0) sec INR 2.3 H (<1.2) Chloride 109 H (98-107) mmol/L Carbon Dioxide 21 L (22-30) mmol/L BUN 69 H (9-20) mg/dL Creatinine 1.39 H (0.66-1.25) mg/dL POC Glucose (mg/dL) (75-99) mg/dL Calcium 11.6 H (8.4-10.2) mg/dL Total Protein (6.3-8.2) g/dL Urine Protein Trace H (Negative) Urine Blood Large H (Negative) Ur Leukocyte Esterase Moderate H (Negative) Urine RBC >182 H (0-5) /hpf Urine WBC 21 H (0-5) /hpf Urine Mucus Rare H (None) /hpf 09/01/18 09/01/18 09/01/18 Range/Units 05:29 11:04 12:02 WBC 19.6 H (3.8-10.6) k/uL MCHC 30.6 L (31.0-37.0) g/dL Neutrophils # 18.6 H (1.3-7.7) k/uL Lymphocytes # 0.2 L (1.0-4.8) k/uL PT (9.0-12.0) sec INR (<1.2) Chloride (98-107) mmol/L Carbon Dioxide (22-30) mmol/L BUN (9-20) mg/dL Creatinine (0.66-1.25) mg/dL POC Glucose (mg/dL) 104 H (75-99) mg/dL Calcium (8.4-10.2) mg/dL Total Protein 4.9 L (6.3-8.2) g/dL Urine Protein (Negative) Urine Blood (Negative) Ur Leukocyte Esterase (Negative) Urine RBC (0-5) /hpf Urine WBC (0-5) /hpf Urine Mucus (None) /hpf Microbiology - Last 24 Hours (Table) 08/31/18 16:15 Urine Culture - Preliminary Urine,Catheterized 08/26/18 15:16 Blood Culture - Preliminary Blood No Growth after 120 hours Assessment and Plan (1) Squamous cell lung cancer Narrative/Plan: Plan was to initiate concurrent chemo/XRT earlier this week but, unfortunately pt respiratory status declined. Plan for treatment is pending improvement in re spiratory and performance status. Patient was seen by Radiation Oncology, plan at this time is to monitor patient's progression with supportive care. Patient's respiratory status is improved status post thoracentesis. Plan per Pulmonary/Critical Care at this time Current Visit: Yes Status: Acute Priority: High Code(s): C34.90 - MALIGNANT NEOPLASM OF UNSP PART OF UNSP BRONCHUS OR LUNG SNOMED Code(s): 105374401 (2) Hypercalcemia of malignancy Narrative/Plan: Bisphosphonate therapy administered yesterday. Plan is for calcitonin 4 doses. Calcium level will be rechecked Current Visit: Yes Status: Acute Priority: Medium Code(s): E83.52 - HYPERCALCEMIA SNOMED Code(s): 89164845
[2018-09-01 17:25] LABS: Glucose,Whole Blood 94 mg/dL (75-99)
[2018-09-01 18:16] LABS: Total Protein, Body Fluid 2400 mg/dL
--- NOTE | 2018-09-01 18:40 | OP ---
OPERATIVE REPORT PREOPERATIVE DIAGNOSIS: Right-sided pleural effusion. POSTOPERATIVE DIAGNOSIS: Right-sided pleural effusion. DESCRIPTION OF PROCEDURE: A time-out was completed verifying correct patient, procedure, site, positioning , and implant (s) or special equipment if applicable. Ultrasound guidance was not used and appropriate fluid pocket was identified and marked. Patient was positioned, prepped and draped in usual sterile fashion. Lidocaine was used to anesthetize the area. A thoracentesis catheter was introduced into the pleural space and fluid was removed. Blood loss was none. A chest x-ray was ordered and showed no evidence of pneumothorax. Total Fluid Removed: 1.5 L Color of Fluid: Turbid, dark yellowish. Fluid was sent for appropriate laboratory tests. Patient tolerated the procedure well and there were no bedside complications or bleeding post thoracentesis. MMODL / IJN: [id number] /
[2018-09-01] MEDS ORDERED: VANCOMYCIN 1,500 MG in SODIUM CHLORIDE 0.9% 250 ML IVPB SCH (20:00)
[2018-09-01] MEDS ORDERED: CALCITONIN INJ 200 UNIT/ML (MDV) VIAL IM SCH (21:00)
[2018-09-01] MEDS: amLODIPine 5 MG TAB PO SCH (21:52)
[2018-09-01] MEDS: ARTIFICIAL TEARS-HYPROMELLOSE DROPS 15 ML BTL BOTH EYES SCH (21:52)
[2018-09-01] MEDS: PANTOPRAZOLE 40 MG TABLET PO SCH (21:52)
[2018-09-01] MEDS: ATORVASTATIN 10 MG TAB PO SCH (21:53)
[2018-09-01] MEDS: METOPROLOL SUCCINATE (ER) 50 MG TAB.ER.24H PO SCH (21:54)
[2018-09-01 22:09] LABS: Glucose,Whole Blood 138 mg/dL (75-99)
[2018-09-01] MEDS ORDERED: FUROSEMIDE 10 MG/ML 4 ML VIAL IV STA (23:33)
[2018-09-02] MEDS: methylPREDNISolone SOD SUCCI 40 MG/ML 1 ML VIAL IV SCH ×5 (00:43→23:56)
[2018-09-02] MEDS: IPRATROPIUM-ALBUTEROL 3 ML NEB INHALATION SCH ×6 (03:18→23:36)
[2018-09-02 05:52] LABS: Basophils % (A) 0 %; Eosinophils # (A) 0.1 k/uL (0-0.7); Eosinophils % (A) 0 %; HGB 12.4 gm/dL (13.0-17.5); Lymphocytes # (A) 0.2 k/uL (1.0-4.8); Lymphocytes % (A) 1 %; MCH 29.5 pg (25.0-35.0); MCV 95.1 fL (80.0-100.0); Mean Platelet Volume 8.7; Monocytes # (A) 0.7 k/uL (0-1.0); Monocytes % (A) 4 %; Neutrophils # (A) 19.1 k/uL (1.3-7.7); Neutrophils % (A) 95 %; Platelet Count 182 k/uL (150-450); RBC 4.21 m/uL (4.30-5.90); RDW 13.7 % (11.5-15.5); WBC 20.2 k/uL (3.8-10.6)
[2018-09-02 06:09] LABS: INR 1.3 (<1.2); Prothrombin Time 13.2 sec (9.0-12.0)
[2018-09-02 06:12] LABS: Calcium 10.4 mg/dL (8.4-10.2); Potassium 4.8 mmol/L (3.5-5.1)
[2018-09-02] MEDS: SODIUM CHLORIDE 0.9% 1,000 ML IV SCH (06:22)
[2018-09-02] MEDS: PIPERACILLIN-TAZOBACTAM 3.375 GM in SODIUM CHLORIDE 0.9% 100 ML IVPB SCH ×3 (06:23→22:18)
[2018-09-02] MEDS: INSULIN ASPART (NovoLOG) 100 UNIT/ML VIAL SQ SCH ×4 (06:23→23:52)
[2018-09-02] MEDS: FORMOTEROL FUMARATE 20 MCG/2 ML NEBU INHALATION SCH ×2 (07:57→20:09)
[2018-09-02] MEDS: BUDESONIDE 1 MG/2 ML NEBU INHALATION SCH ×2 (07:57→20:09)
--- NOTE | 2018-09-02 08:30 | P.CONS ---
History of Present Illness - Reason for Consult Consult date: 09/01/18 Lung Cancer Requesting physician: Debo Hood - Chief Complaint I am short of breath - History of Present Illness Riky is a pleasant 83 year old with a history of right middle lobectomy in 2013 with final pathology identifying benign disease. Over the last 4 months he noted progressive shortness of breath and cough. CT of the chest visualized a 1.5 cm right upper lobe mass. PET/CT on 07/21/18 at [facility] visualized multiple FDG avid lymph nodes in the right /left supraclavicular area, bilateral hilum, and questionable denisha-aortic nodes. 2 right upper lobe lesions were noted and both FDG avid. There was questionable uptake at T12. Bronchoscopy and biopsy on 07/24/18 was non diagnostic. Subsequent gamino bx on 07/28/18 of 11R@ [facility] revealed squamous cell carcinoma. Plan was for consideration of concurrent chemoradiation. Unfortunately Riky presented to the [facility] ED with SOB. Chest x-ray revealed evidence of COPD with bilateral infiltrates right greater than left and small effusions. There is also bilateral hilar enlargement with evidence of adenopathy. He is requiring 5 L high flow nasal cannula to maintain O2 saturations in the 90s. White count 20.4. Hemoglobin 14.5. Platelet count 279,000. INR 8.8. ProBNP 1370. Initial lactic 2.5, currently 2.0. Creatinine 0.86. He has been initiated and DuoNeb inhalations, Pulmicort and Perforomist inhalations, IV Solu-Medrol. He is in the ICU and continues on high flow 02 12-15L. Review of Systems Constitutional: Reports chills, Reports fatigue, Reports lethargy, Reports weakness Respiratory: Reports dyspnea, Reports home oxygen, Reports wheezing Past Medical History Past Medical History: Atrial Fibrillation, Cancer, COPD, Hyperlipidemia, Hypertension, Osteoarthritis (OA), Pneumonia Additional Past Medical History / Comment(s): HX OF SKIN CANCER AND LUNG CA, GOUT History of Any Multi-Drug Resistant Organisms: MRSA Year Discovered:: 2012 MDRO Source:: LEFT ELBOW Past Surgical History: Orthopedic Surgery Additional Past Surgical History / Comment(s): LEFT ELBOW SURGERY, lung/lymph biopsy Past Anesthesia/Blood Transfusion Reactions: No Reported Reaction Past Psychological History: No Psychological Hx Reported Smoking Status: Former smoker Past Alcohol Use History: None Reported Additional Past Alcohol Use History / Comment(s): SMOKES 1PPD OR MORE. SMOKING SINCE 16 YEARS OLD- 66 YEARS. Past Drug Use History: None Reported - Past Family History Father Family Medical History: Cancer Additional Family Medical History / Comment(s): LUNG & LIVER CANCER Medications and Allergies Home Medications Medication Instructions Recorded Confirmed Type Allopurinol [Zyloprim] 100 mg PO DAILY 07/24/15 08/26/18 History Digoxin [Lanoxin] 250 mcg PO DAILY 07/24/15 08/26/18 History Fluticasone/Salmeterol [Advair 1 puff INHALATION RT-BID 07/24/15 08/26/18 History 250-50 Diskus] Metoprolol Succinate (ER) [Toprol 50 mg PO HS 07/24/15 08/26/18 History XL] Tiotropium [place] [Spiriva] 1 puff INHALATION RT-HS 07/24/15 08/26/18 History Ubidecarenone [Co Q-10] 200 mg PO HS 07/24/15 08/26/18 History Warfarin Sodium 2 mg PO SUTUWETHFRSA 07/24/15 08/26/18 History Carboxymethylcellulose Sodium 1 drop BOTH EYES HS 08/13/18 08/26/18 History [Refresh Tears] Fluticasone Nasal [place] [Flonase 1 spray EA NOSTRIL DAILY 08/13/18 08/26/18 History Nasal [place]] Simvastatin [Zocor] 20 mg PO HS 08/13/18 08/26/18 History Warfarin [Coumadin] 3 mg PO MO 08/13/18 08/26/18 History amLODIPine [Norvasc] 5 mg PO HS 08/13/18 08/26/18 History Allergies Allergy/AdvReac Type Severity Reaction Status Date / Time Penicillins Allergy Unknown Itching Verified 08/26/18 12:26 Physical Exam Vitals: Vital Signs Temp Pulse Pulse Resp BP Pulse Ox 09/02/18 08:20 90 09/02/18 08:08 86 09/02/18 07:58 86 09/02/18 07:00 86 18 95/71 94 L 09/02/18 06:00 90 20 103/61 95 09/02/18 05:00 90 32 H 94/53 94 L 09/02/18 04:00 97.9 F 82 82 26 H 86/55 94 L 09/02/18 03:18 82 09/02/18 03:00 80 33 H 92/58 93 L 09/02/18 02:00 81 35 H 107/57 93 L 09/02/18 01:00 89 32 H 95/56 95 09/02/18 00:00 97.6 F 76 30 H 97/55 92 L 09/01/18 23:56 80 28 H 09/01/18 23:33 78 09/01/18 23:26 84 09/01/18 23:00 80 28 H 88/56 94 L 09/01/18 22:00 80 24 93/55 94 L 09/01/18 21:00 93 29 H 109/54 94 L 09/01/18 20:48 90 09/01/18 20:38 92 09/01/18 20:21 89 26 H 09/01/18 20:00 98.1 F 84 79 18 110/54 92 L 09/01/18 19:00 86 17 102/50 93 L 09/01/18 18:00 89 27 H 100/59 93 L 09/01/18 17:00 106 H 28 H 109/66 94 L 09/01/18 16:30 90 22 109/74 94 L 09/01/18 16:29 84 09/01/18 16:17 93 L 09/01/18 16:14 80 09/01/18 16:00 98.0 F 80 22 96/54 92 L 09/01/18 15:30 96 27 H 112/56 92 L 09/01/18 15:00 85 26 H 100/63 92 L 09/01/18 14:30 84 28 H 107/56 96 09/01/18 14:15 82 28 H 104/56 95 09/01/18 14:00 78 25 H 102/52 95 09/01/18 13:45 80 20 95/62 95 09/01/18 13:30 73 23 101/66 96 09/01/18 13:15 80 26 H 105/55 95 09/01/18 13:00 79 29 H 102/59 93 L 09/01/18 12:45 85 19 102/60 94 L 09/01/18 12:30 78 28 H 97/63 94 L 09/01/18 12:15 74 23 103/62 93 L 09/01/18 12:06 77 09/01/18 12:00 98.1 F 75 14 99/59 98 09/01/18 11:54 74 09/01/18 11:45 75 20 112/64 93 L 09/01/18 11:30 75 28 H 108/60 91 L 09/01/18 11:15 78 20 101/55 92 L 09/01/18 11:00 75 27 H 107/57 93 L 09/01/18 10:45 87 19 100/57 92 L 09/01/18 10:30 73 22 109/58 91 L 09/01/18 10:15 84 31 H 103/58 90 L 09/01/18 10:00 101 H 36 H 130/68 90 L 09/01/18 09:45 115 H 37 H 130/68 85 L 09/01/18 09:30 105 H 33 H 130/68 88 L 09/01/18 09:00 129 H 35 H 132/72 90 L 09/01/18 08:35 101 H 09/01/18 08:27 100 09/01/18 08:26 100 Intake and Output 09/01/18 09/02/18 09/02/18 22:59 06:59 14:59 Intake Total 1465 230 40 Output Total 575 935 125 Balance 676 -340 -71 Intake: IV 1225 230 40 Piperacillin-Tazobactam 3 175 .375 gm In Sodium Chloride 0.9% 100 ml @ 25 mls/hr IVPB Q8H [facility] Rx#: [id number] Sodium Chloride 0.9% 1, 800 230 40 000 ml @ 20 mls/hr IV . Q24H [facility] Rx#:[id number] Vancomycin 1,500 mg In 250 Sodium Chloride 0.9% 250 ml @ 125 mls/hr IVPB Q12H [facility] Rx#:[id number] Oral 240 Output: Urine 575 935 125 Other: Voiding Method Indwelling Catheter Indwelling Catheter Weight 86.6 kg - Constitutional General appearance: mild distress - EENT Eyes: EOMI ENT: hard of hearing - Respiratory Respiratory: right: diminished, dullness, bilateral: wheezing, prolonged expir ation, prolonged inspiration - Cardiovascular Rhythm: regular - Neurologic Neurologic: CNII-XII intact - Musculoskeletal Musculoskeletal: generalized weakness - Psychiatric Psychiatric: A&O x's 3 Results CBC & Chem 7: 07/25/19 05:23 09/02/18 05:23 Labs: Abnormal Lab Results - Last 24 Hours (Table) 09/01/18 09/01/18 09/01/18 Range/Units 11:04 12:02 21:57 WBC (3.8-10.6) k/uL RBC (4.30-5.90) m/uL Hgb (13.0-17.5) gm/dL Neutrophils # (1.3-7.7) k/uL Lymphocytes # (1.0-4.8) k/uL PT (9.0-12.0) sec INR (<1.2) Chloride (98-107) mmol/L Carbon Dioxide (22-30) mmol/L BUN (9-20) mg/dL Creatinine (0.66-1.25) mg/dL Glucose (74-99) mg/dL POC Glucose (mg/dL) 104 H 138 H (75-99) mg/dL Calcium (8.4-10.2) mg/dL Total Protein 4.9 L (6.3-8.2) g/dL 09/02/18 09/02/18 09/02/18 Range/Units 05:23 05:23 05:23 WBC 20.2 H (3.8-10.6) k/uL RBC 4.21 L (4.30-5.90) m/uL Hgb 12.4 L (13.0-17.5) gm/dL Neutrophils # 19.1 H (1.3-7.7) k/uL Lymphocytes # 0.2 L (1.0-4.8) k/uL PT 13.2 H (9.0-12.0) sec INR 1.3 H (<1.2) Chloride 111 H (98-107) mmol/L Carbon Dioxide 21 L (22-30) mmol/L BUN 87 H (9-20) mg/dL Creatinine 1.62 H (0.66-1.25) mg/dL Glucose 111 H (74-99) mg/dL POC Glucose (mg/dL) (75-99) mg/dL Calcium 10.4 H (8.4-10.2) mg/dL Total Protein (6.3-8.2) g/dL Microbiology - Last 24 Hours (Table) 09/01/18 09:55 Gram Stain - Preliminary Pleural Fluid Body Fluid Culture - Preliminary 08/31/18 16:15 Urine Culture - Final Urine,Catheterized 08/31/18 15:21 Blood Culture - Preliminary Blood No Growth after 24 hours 09/01/18 09:55 Anaerobic Culture - Preliminary Pleural Fluid 08/26/18 15:16 Blood Culture - Final Blood No Growth after 144 hours 08/31/18 15:20 Blood Culture - Preliminary Blood No Growth after 24 hours Assessment and Plan Assessment: 83 year old with 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 Patient is currently on high flow 02 with a progressive right sided plueral effusion and increased work of breathing. Plan: Plan was to initiate concurrent chemo/XRT earlier this week but, unfortunately pt respiratory status declined. I discussed with Riky and his family that at this time any active cancer therapy would likely be detrimental. He is scheduled to undergo thoracentesis under the care of Dr. Hood and will continue on IV abx. We will continue to follow with subsequent treatment plans based on his functional status and cytology results of the thoracentesis.
[2018-09-02] MEDS: PANTOPRAZOLE 40 MG TABLET PO SCH ×2 (09:07→20:49)
[2018-09-02] MEDS: ALLOPURINOL 100 MG TAB PO SCH (09:07)
[2018-09-02] MEDS: guaiFENesin 600 MG TABLET.ER PO SCH (09:07)
[2018-09-02] MEDS: FLUTICASONE 50MCG/SPRAY NASAL 16GM EA NOSTRIL SCH (09:09)
[2018-09-02] MEDS: DIGOXIN 250 MCG TAB PO SCH (09:09)
--- NOTE | 2018-09-02 10:33 | XR ---
EXAMINATION TYPE: XR chest 1V portable DATE OF EXAM: 09/02/2018 COMPARISON: Prior chest x-ray 09/01/2018 HISTORY: Shortness of breath TECHNIQUE: Single frontal view of the chest is obtained. FINDINGS: Interval blunting the right costophrenic angle suggesting effusion. No other significant i nterval change. Heart size is stable. IMPRESSION: There may be a reaccumulation of the right pleural effusion
[2018-09-02 11:52] LABS: Glucose,Whole Blood 108 mg/dL (75-99)
--- NOTE | 2018-09-02 13:25 | P.PN ---
Subjective Progress Note Date: 09/02/18 Principal diagnosis: Acute on chronic hypoxic respiratory failure secondary to an acute exacerbation of chronic obstructive pulmonary disease, complicated by post obstructive right lung pneumonia. This is a very pleasant 83-year-old gentleman who follows with Dr. Munoz as his primary care physician. 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 Has has significant COPD treated with Advair, Spiriva, albuterol and had been seen by our group back in 2016 was noted to have abnormal CAT scan. He had undergone bronchoscopy with biopsies which were negative for malignancy. Still concerned regarding possible cancer he was referred to Dr. Oni Pond at [facility] at which time he had undergone a right-sided VATS procedure with wedge resection and mediastinal lymph node biopsies. The results of that were consistent with inflammation and suspected pseudotumor. He had been undergoing serial follow-up chest x-rays through them and there was continued suspicion for lung cancer. 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 He was just to start his initial treatment with chemo and radiation here at [facility] yesterday but has been having issues with ongoing and worsening shortness of breath over the past month and presented here to the emergency room for the same. Of note, he was admitted here earlier this same month for COPD exacerbation. He was not seen by pulmonary at that time. Discharged home on 08/17/2018 on azithromycin and a prednisone taper. Chest x-ray reveals evidence of COPD with bilateral infiltrates right greater than left and small effusions. There is also bilateral hilar enlargement with evidence of adenopathy. He is requiring 5 L high flow nasal cannula to maintain O2 saturations in the 90s. White count 20.4. Hemoglobin 14.5. Platelet count 279,000. INR 8.8. ProBNP 1370. Initial lactic 2.5, currently 2.0. Creatinine 0.86. He has been initiated and DuoNeb inhalations, Pulmicort and Perforomist inhalations, IV Solu-Medrol. He is on antibiotics in the form of ceftriaxone and azithromycin. The patient is seen today 08/31/2018 in follow-up in the intensive care unit. He is on 12 L high flow nasal cannula. He is feeling about the same as compared to yesterday. No significant improvements in his pulmonary status. He has been transitioned to vancomycin, Zosyn and Levaquin. CAT scan of the chest revealed prior wedge resection along the right upper to mid lung. There is extensive conglomerate mediastinal lymphadenopathy with soft tissue thickening measuring up to 3.2 cm in the subcarinal region. Additional soft tissue encases the right hilum, narrowing the bronchus intermedius and had soft the right middle lobe bronchus. There is also left hilar lymphadenopathy and a right upper lobe nodule measuring 1.4 cm. Moderate right effusion with prominent adjacent atelectasis. There is reticular nodularity throughout the right lung client relations representative congestion from hilar encasement versus pneumonitis. Moderate amount of emphysema. There is also layering secretions and debris in the distal tracheal place and the patient risk for aspiration. Today's chest x-ray shows apical pleural thickening on the right. Perihilar increased density persists. Right hemidiaphragm is obscured. Interstitium is increased in the right hemithorax. No pneumothorax. Sputum culture positive for Agnieszka. Blood cultures reveal no growth. White count 21.8. Hemoglobin 13.3. INR 3.5. Sodium 136. Potassium 5.3. Creatinine 1.07. The patient is seen today 09/01/2017 in follow-up in the intensive care unit. He has been requiring 15 L high flow nasal cannula to maintain O2 saturations in the low 90s. Chest x-ray reveals right pleural effusion, underlying perihilar mass and prominence of the interstitium. Mediastinal fullness. Ultrasound of the right chest revealed a large right pleural effusion measuring 16 cm. He has been afebrile. Remains in atrial fibrillation with some tachycardia. Tachypneic. Blood pressure stable. Patient culture with Agnieszka otherwise no growth. Blood culture reveals no growth. Urine culture is pending. White c ount 19.6. Hemoglobin 13.0. INR 2.3. Creatinine 1.39. He had been given vitamin K yesterday and again this morning. He did undergo a right-sided thoracentesis by Dr. Hood and 1700 ML's of bloody return. Sent for cultures and cytology. Follow-up chest x-ray revealed no pneumothorax and significant improvement in the right pleural effusion. The patient is seen today 09/02/2018 in follow-up in the intensive care unit. He is a bit more awake and alert today as compared to yesterday. Still having some episodes of confusion and delirium. He is requiring 15 L high flow nasal cannula but maintaining good O2 saturations in the mid 90s. He remains afebrile. Blood and urine cultures reveal no growth. White count 20.2. Hemoglobin 12.4. INR 1.3. Creatinine 1.62. INR 1.3. He remains on vancomycin, Zosyn, Levaquin. Chest x-ray continues to show some right pleural effusion. He did undergo thoracentesis yesterday was 1700 ML's of bloody return. Protein 2.4. LDH 498. Pleural fluid cultures are pending. Objective - Vital Signs Vital signs: Vital Signs Temp 97.9 F 09/02/18 04:00 Pulse 78 09/02/18 11:50 Resp 22 09/02/18 11:00 BP 81/51 09/02/18 11:00 Pulse Ox 96 09/02/18 11:00 Intake & Output 09/01/18 09/02/18 09/02/18 18:59 06:59 18:59 Intake Total 1940 980 110 Output Total 2660 1185 425 Balance -720 205 -315 Weight 83.3 kg 86.6 kg Intake: IV 1080 980 60 .9 30 Phytonadione 5 mg In 50 Sodium Chloride 0.9% 50 ml @ 100 mls/hr IVPB ONCE [facility] Rx#:[id number] Piperacillin-Tazobactam 3 100 100 .375 gm In Sodium Chloride 0.9% 100 ml @ 25 mls/hr IVPB Q8H [facility] Rx#: [id number] Sodium Chloride 0.9% 1, 900 630 60 000 ml @ 20 mls/hr IV . Q24H [facility] Rx#:[id number] Vancomycin 1,500 mg In 250 Sodium Chloride 0.9% 250 ml @ 125 mls/hr IVPB Q12H [facility] Rx#:[id number] Oral 860 50 Output: Urine 960 1185 425 Other 1700 Other: Voiding Method Indwelling Catheter Indwelling Catheter Indwelling Catheter - Exam GENERAL EXAM: Very pleasant 83-year-old gentleman. Alert, somewhat confused, in mild respiratory distress. On 15 L high flow nasal cannula. HEAD: Normocephalic. EYES: Normal reaction of pupils, equal size. NOSE: Clear with pink turbinates. THROAT: No erythema or exudates. NECK: No masses, no JVD. CHEST: No chest wall deformity. LUNGS: Equal air entry and crackles, scattered rhonchi, diminished in the right lung base. CVS: S1 and S2 normal with no audible murmur, irregular rhythm. ABDOMEN: No hepatosplenomegaly, normal bowel sounds, no guarding or rigidity. SPINE: No scoliosis or deformity SKIN: No rashes CENTRAL NERVOUS SYSTEM: No focal deficits, tone is normal in all 4 extremities. EXTREMITIES: There is no peripheral edema. No clubbing, no cyanosis. Peripher al pulses are intact. - Labs CBC & Chem 7: 09/02/18 05:23 09/02/18 05:23 Labs: Abnormal Lab Results - Last 24 Hours (Table) 09/01/18 09/02/18 09/02/18 Range/Units 21:57 05:23 05:23 WBC (3.8-10.6) k/uL RBC (4.30-5.90) m/uL Hgb (13.0-17.5) gm/dL Neutrophils # (1.3-7.7) k/uL Lymphocytes # (1.0-4.8) k/uL PT 13.2 H (9.0-12.0) sec INR 1.3 H (<1.2) Chloride 111 H (98-107) mmol/L Carbon Dioxide 21 L (22-30) mmol/L BUN 87 H (9-20) mg/dL Creatinine 1.62 H (0.66-1.25) mg/dL Glucose 111 H (74-99) mg/dL POC Glucose (mg/dL) 138 H (75-99) mg/dL Calcium 10.4 H (8.4-10.2) mg/dL 09/02/18 09/02/18 Range/Units 05:23 11:41 WBC 20.2 H (3.8-10.6) k/uL RBC 4.21 L (4.30-5.90) m/uL Hgb 12.4 L (13.0-17.5) gm/dL Neutrophils # 19.1 H (1.3-7.7) k/uL Lymphocytes # 0.2 L (1.0-4.8) k/uL PT (9.0-12.0) sec INR (<1.2) Chloride (98-107) mmol/L Carbon Dioxide (22-30) mmol/L BUN (9-20) mg/dL Creatinine (0.66-1.25) mg/dL Glucose (74-99) mg/dL POC Glucose (mg/dL) 108 H (75-99) mg/dL Calcium (8.4-10.2) mg/dL Microbiology - Last 24 Hours (Table) 09/01/18 09:55 Gram Stain - Preliminary Pleural Fluid Body Fluid Culture - Preliminary 08/31/18 16:15 Urine Culture - Final Urine,Catheterized 08/31/18 15:21 Blood Culture - Preliminary Blood No Growth after 24 hours 09/01/18 09:55 Anaerobic Culture - Preliminary Pleural Fluid 08/26/18 15:16 Blood Culture - Final Blood No Growth after 144 hours 08/31/18 15:20 Blood Culture - Preliminary Blood No Growth after 24 hours Assessment and Plan Assessment: Impression: #1 Acute on chronic hypoxic respiratory failure secondary to an acute exacerbation of chronic obstructive pulmonary disease complicated by post obstructive right lung pneumonia, right pleural effusion. Currently on 15 L high flow nasal cannula. Status post right-sided thoracentesis with 1700 ML's of thick bloody fluid returned. Cultures and cytology pending. #2 Recent diagnosis of stage III lung cancer, squamous cell carcinoma. #3 Chronic obstructive pulmonary disease. #4 Chronic heavy tobacco dependence, has since quit. #5 Hyperlipidemia. #6 Hypertension. #7 Atrial fibrillation, anticoagulated with warfarin, subtherapeutic. #8 Osteoarthritis. #9 History of MRSA infection of the left elbow. Plan: The patient was seen and evaluated by Dr. Hood. Chest x-ray and labs all reviewed. Continue with antibiotics in the form of vancomycin, Zosyn and Levaquin. Continue bronchodilators. Resume warfarin. Titrate down the FiO2 as tolerated. The patient's overall prognosis remains quite guarded. The plan was reviewed and discussed with the patient, his and 3 of his children. We'll keep him in the intensive care unit for now. We will continue to follow and make further recommendations based on his clinical status. I, the cosigning physician, performed a history & physical examination of the patient. Lungs sounds crackles, rhonchi, diminished in the right lung base Maintaining good O2 saturations in the 90s on 15 L high flow nasal cannula. I discussed the assessment and plan of care with my nurse practitioner, Tiffany Taylor. I attest to the above consultation as dictated by her.
[2018-09-02] MEDS: FLUCONAZOLE IN NACL,ISO-OSM 100 MG in SALINE 1 50ML.BAG IVPB SCH (13:38)
[2018-09-02] MEDS ORDERED: LIDOCAINE 1% INJ 10MG/ML (20 ML MDV) ONE (13:43)
[2018-09-02] MEDS ORDERED: LIDOCAINE 1% INJ 10MG/ML (20 ML MDV) SQ ONE (14:07)
--- NOTE | 2018-09-02 14:58 | XR ---
EXAMINATION TYPE: XR chest 1V portable DATE OF EXAM: 09/02/2018 COMPARISON: Prior chest x-ray same dated earlier time HISTORY: PICC line placement TECHNIQUE: Single frontal view of the chest is obtained. FINDINGS: There is been interval placement of a right-sided PICC line. Distal tip is near the cavoat rial junction level. No pneumothorax. No significant change. IMPRESSION: No evident effusion status post PICC line placement.
--- NOTE | 2018-09-02 15:03 | P.PN ---
Subjective Progress Note Date: 09/02/18 Principal diagnosis: LUIS EDUARDO, Squamous cell lung cancer, was due to start treatment In follow-up today patient is demonstrating some confusion, filling with his blankets, not only is clear and when he sitting, his speech is weak, patient is overall weak, his breathing is improved, he is breathing through his nasal cannula when he gets short of breath with talking, he is being evaluated by speech therapy has there are concerns for aspiration. Patient does not visibly appear to be in pain, he very much enjoys his by his side. Objective - Vital Signs Vital signs: Vital Signs Temp 97.9 F 09/02/18 04:00 Pulse 76 09/02/18 14:00 Resp 21 09/02/18 14:00 BP 83/54 09/02/18 14:00 Pulse Ox 94 L 09/02/18 14:00 Intake & Output 09/01/18 09/02/18 09/02/18 18:59 06:59 18:59 Intake Total 1940 980 150 Output Total 2660 1185 800 Balance -720 -668 -650 Weight 83.3 kg 86.6 kg Intake: IV 1080 980 100 .9 30 Phytonadione 5 mg In 50 Sodium Chloride 0.9% 50 ml @ 100 mls/hr IVPB ONCE [facility] Rx#:[id number] Piperacillin-Tazobactam 3 100 100 .375 gm In Sodium Chloride 0.9% 100 ml @ 25 mls/hr IVPB Q8H [facility] Rx#: [id number] Sodium Chloride 0.9% 1, 900 630 100 000 ml @ 20 mls/hr IV . Q24H [facility] Rx#:[id number] Vancomycin 1,500 mg In 250 Sodium Chloride 0.9% 250 ml @ 125 mls/hr IVPB Q12H [facility] Rx#:[id number] Oral 860 50 Output: Urine 960 1185 800 Other 1700 Other: Voiding Method Indwelling Catheter Indwelling Catheter Indwelling Catheter # Voids 1 - Constitutional General appearance: Present: cooperative, mild distress, thin - EENT Eyes: Present: anicteric sclerae, EOMI - Respiratory Details: Mildly labored breathing, patient is now breathing into his nose utilizing the oxygen coming from the nasal cannula, some scattered breath sounds are noted in the right lung, crackles, the left lung has harsh breath sounds throughout. - Cardiovascular Heart sounds: normal: S1, S2 - Peripheral edema leg Peripheral Edema: bilateral: Trace - Gastrointestinal General gastrointestinal: Present: normal bowel sounds, soft - Musculoskeletal Musculoskeletal: Present: generalized weakness - Labs CBC & Chem 7: 09/02/18 05:23 09/02/18 05:23 Labs: Abnormal Lab Results - Last 24 Hours (Table) 09/01/18 09/02/18 09/02/18 Range/Units 21:57 05:23 05:23 WBC (3.8-10.6) k/uL RBC (4.30-5.90) m/uL Hgb (13.0-17.5) gm/dL Neutrophils # (1.3-7.7) k/uL Lymphocytes # (1.0-4.8) k/uL PT 13.2 H (9.0-12.0) sec INR 1.3 H (<1.2) Chloride 111 H (98-107) mmol/L Carbon Dioxide 21 L (22-30) mmol/L BUN 87 H (9-20) mg/dL Creatinine 1.62 H (0.66-1.25) mg/dL Glucose 111 H (74-99) mg/dL POC Glucose (mg/dL) 138 H (75-99) mg/dL Calcium 10.4 H (8.4-10.2) mg/dL 09/02/18 09/02/18 Range/Units 05:23 11:41 WBC 20.2 H (3.8-10.6) k/uL RBC 4.21 L (4.30-5.90) m/uL Hgb 12.4 L (13.0-17.5) gm/dL Neutrophils # 19.1 H (1.3-7.7) k/uL Lymphocytes # 0.2 L (1.0-4.8) k/uL PT (9.0-12.0) sec INR (<1.2) Chloride (98-107) mmol/L Carbon Dioxide (22-30) mmol/L BUN (9-20) mg/dL Creatinine (0.66-1.25) mg/dL Glucose (74-99) mg/dL POC Glucose (mg/dL) 108 H (75-99) mg/dL Calcium (8.4-10.2) mg/dL Microbiology - Last 24 Hours (Table) 09/01/18 09:55 Gram Stain - Preliminary Pleural Fluid Body Fluid Culture - Preliminary 08/31/18 16:15 Urine Culture - Final Urine,Catheterized 08/31/18 15:21 Blood Culture - Preliminary Blood No Growth after 24 hours 09/01/18 09:55 Anaerobic Culture - Preliminary Pleural Fluid 08/26/18 15:16 Blood Culture - Final Blood No Growth after 144 hours 08/31/18 15:20 Blood Culture - Preliminary Blood No Growth after 24 hours Assessment and Plan (1) Squamous cell lung cancer Narrative/Plan: Plan was to initiate concurrent chemo/XRT but, unfortunately pt respiratory status declined. Plan for treatment is pending improvement in respiratory and performance status. Patient was seen by Radiation Oncology, plan at this time is to monitor patient' s progression with supportive care. Patient's respiratory status was improved status post thoracentesis. Plan per Pulmonary/Critical Care at this time Current Visit: Yes Status: Acute Priority: High Code(s): C34.90 - MALIGNANT NEOPLASM OF UNSP PART OF UNSP BRONCHUS OR LUNG SNOMED Code(s): 054036729 (2) Hypercalcemia of malignancy Narrative/Plan: Bisphosphonate therapy administered. Calcitonin was ordered but after d iscussion with pharmacy was canceled. Calcium level down to 10.4 today. This will continue to be monitored. Current Visit: Yes Status: Acute Priority: Medium Code(s): E83.52 - HYPERCALCEMIA SNOMED Code(s): 30963881
--- NOTE | 2018-09-02 15:14 | P.PN ---
Subjective Progress Note Date: 09/02/18 Principal diagnosis: This is an 83-year-old male that was admitted for COPD exacerbation with pneumonia. Patient was recently just moved the ICU today for worsening of his respiratory status. Patient was having labored breathing with increasing respirations. Patient is being closely monitored. Patient is hard of hearing but denies any chest pain or palpitations at this time. Oncology is following the patient as well as the patient recently had a needle biopsy showing he was positive for metastasis of squamous cell lung cancer. Patient was expected to start treatment shortly. 08/31/2018 This is an 83-year-old male that was admitted for COPD exacerbation with pneumon ia. The patient is currently still in the ICU and states that his breathing has not improved since yesterday. Patient states that he is having a lot of difficulty in breathing and shortness of breath. Patient's respirations are approximately 32/m at this time. Patient is currently on high flow oxygen at 15 L. Patient denies any chest pain, or palpitations at this time. Patient is having a little bit of nausea and hasn't been eating well per family but is drinking small sips. Dr. Hood is closely following the patient. Oncology is following as well. Chest x-ray from today shows a right pleural effusion no chest ultrasound with markings was done today. Patient is to have a thorace ntesis done in the morning. Family is at the bedside. They were concerned because he hasn't had a bowel movement since he has been here in the last 5 days. Dulcolax suppository when necessary was ordered. Zofran was also ordered as needed if the patient continues to have nausea. 09/01/2018 Patient is sitting upright in bed having some respiratory distress and no real improvement from yesterday. Patient family is at the bedside and states that his breathing has gotten worse. Patient is denying any chest pain or palpitations at this time. Patient denies any vomiting or abdominal discomfort at this time. Patient is still having occasional waves of nausea but not eating very well at all. Patient states that he doesn't have much of an appetite. Patient is receiving some Vitamin K this morning IV as he is to have a right thoracentesis with Dr. Hood. Will await report from the procedure. Will continue to monitor closely. Patient is still currently on high flow 02 via NC at 15L. 09/02/2018 Patient is sitting upright in bed and appears to be a little more relaxed with lower respirations and oxygen saturations in the mid 90's. Patient is still having some shortness of breath but states that it has gotten a little easier to breathe. Patient is still on 15L high flow via NC. Patient underwent a thoracentesis yesterday with Dr. Hood and a total of 1700mL of pleural fluid was removed. This morning's chest x-ray showing an interval blunting of the right costophrenic angle suggesting a reaccumulation of the right pleural effusion. Pulmonary is following closely as the patient is still in the ICU. Patient denies any chest pain, palpitations, nausea, or vomiting at this time. Patient has not been eating very well just ice chips and family is concerned that he hasn't eaten nor had a bowel movement for almost 2 weeks. Patient is receiving a PICC line today for TPN administration as he has not been eating and having difficulty with swallowing. Patient has been chewing up his medications per RN. A swallow eval was ordered. Pleural fluid cultures and cytology are still pending from the thoracentesis yesterday. Patient is being closely monitored. Extremely guarded prognosis. Objective - Vital Signs Vital signs: Vital Signs Temp 97.9 F 09/02/18 04:00 Pulse 76 09/02/18 14:00 Resp 21 09/02/18 14:00 BP 83/54 09/02/18 14:00 Pulse Ox 94 L 09/02/18 14:00 Intake & Output 09/01/18 09/02/18 09/02/18 18:59 06:59 18:59 Intake Total 1940 980 150 Output Total 2660 1185 800 Balance -720 -205 -650 Weight 83.3 kg 86.6 kg Intake: IV 1080 980 100 .9 30 Phytonadione 5 mg In 50 Sodium Chloride 0.9% 50 ml @ 100 mls/hr IVPB ONCE [facility] Rx#:[id number] Piperacillin-Tazobactam 3 100 100 .375 gm In Sodium Chloride 0.9% 100 ml @ 25 mls/hr IVPB Q8H [facility] Rx#: [id number] Sodium Chloride 0.9% 1, 900 630 100 000 ml @ 20 mls/hr IV . Q24H [facility] Rx#:[id number] Vancomycin 1,500 mg In 250 Sodium Chloride 0.9% 250 ml @ 125 mls/hr IVPB Q12H [facility] Rx#:[id number] Oral 860 50 Output: Urine 960 1185 800 Other 1700 Other: Voiding Method Indwelling Catheter Indwelling Catheter Indwelling Catheter # Voids 1 - Exam Gen: This is a 83-year-old male sitting straight up in bed in mild acute respiratory distress. Patient is still currently on high flow oxygen at 15 L. mild improvement from yesterday. Vital signs are 97.9F, pulse is 92, blood pressure is 92/57, respirations are 22, oxygen saturation is 95% HEENT: Head is atraumatic, normocephalic. Pupils equal, round. Sclerae is anicteric. NECK: Supple. No JVD. No lymphadenopathy. No thyromegaly. LUNGS: Diminished bilaterally more so in the right with expiratory wheezing and crackles noted. Accessory muscle use noted on exam HEART: Regular rate and rhythm. No murmur. ABDOMEN: Soft. Bowel sounds are present. No masses. No tenderness. EXTREMITIES: No pedal edema. No calf tenderness. mild left upper extremity swelling noted NEUROLOGICAL: Patient is awake, alert and oriented x3. Patient is hard of hearing but responds to commands appropriately. Anxious in appearance. Cranial nerves 2 through 12 are grossly intact. Labs: WBC 20.2, BUN 87, CR 1.62, Digoxin level 1.3, Calcium 10.4, Potassium is 4.8 - Labs CBC & Chem 7: 09/02/18 05:23 09/02/18 05:23 Labs: Abnormal Lab Results - Last 24 Hours (Table) 09/01/18 09/02/18 09/02/18 Range/Units 21:57 05:23 05:23 WBC (3.8-10.6) k/uL RBC (4.30-5.90) m/uL Hgb (13.0-17.5) gm/dL Neutrophils # (1.3-7.7) k/uL Lymphocytes # (1.0-4.8) k/uL PT 13.2 H (9.0-12.0) sec INR 1.3 H (<1.2) Chloride 111 H (98-107) mmol/L Carbon Dioxide 21 L (22-30) mmol/L BUN 87 H (9-20) mg/dL Creatinine 1.62 H (0.66-1.25) mg/dL Glucose 111 H (74-99) mg/dL POC Glucose (mg/dL) 138 H (75-99) mg/dL Calcium 10.4 H (8.4-10.2) mg/dL 09/02/18 09/02/18 Range/Units 05:23 11:41 WBC 20.2 H (3.8-10.6) k/uL RBC 4.21 L (4.30-5.90) m/uL Hgb 12.4 L (13.0-17.5) gm/dL Neutrophils # 19.1 H (1.3-7.7) k/uL Lymphocytes # 0.2 L (1.0-4.8) k/uL PT (9.0-12.0) sec INR (<1.2) Chloride (98-107) mmol/L Carbon Dioxide (22-30) mmol/L BUN (9-20) mg/dL Creatinine (0.66-1.25) mg/dL Glucose (74-99) mg/dL POC Glucose (mg/dL) 108 H (75-99) mg/dL Calcium (8.4-10.2) mg/dL Microbiology - Last 24 Hours (Table) 09/01/18 09:55 Gram Stain - Preliminary Pleural Fluid Body Fluid Culture - Preliminary 08/31/18 16:15 Urine Culture - Final Urine,Catheterized 08/31/18 15:21 Blood Culture - Preliminary Blood No Growth after 24 hours 09/01/18 09:55 Anaerobic Culture - Preliminary Pleural Fluid 08/26/18 15:16 Blood Culture - Final Blood No Growth after 144 hours 08/31/18 15:20 Blood Culture - Preliminary Blood No Growth after 24 hours Assessment and Plan Assessment: Pneumonia, suspect gram-negative organism, present on arrival. Patient is currently on Levaquin and Zosyn and Vanco IV. Acute severe COPD exacerbation Metabolic encephalopathy Acute hypoxic respiratory failure severe, from underlying COPD Chronic nicotine dependence: Patient is still a cigarette smoker Metastasis, squamous cell lung cancer, awaiting treatment Persistent atrial fibrillation: Coumadin restarted Hyperlipidemia Hypercalcemia. Calcium is 10.4. Oncology is following and made aware. Calcitonin given Essential hypertension Primary osteoarthritis Right pleural effusion: Thoracentesis yesterday removing 1700mL pleural fluid. Cultures and cytology pending. Nausea: Zofran when necessary ordered Constipation: Dulcolax when necessary ordered, Colace discontinued GI prophylaxis Poor caloric intake: PICC line is being placed and TPN will be started. Recommendations and discussion Recommend continuing current medication and symptomatic management. Patient will be monitored in the ICU closely. Prognosis is extremely guarded. We'll continue with bronchodilators, steroids, and antibiotics at this time. Further recommendations to follow. Oncology and pulmonary are following closely.
[2018-09-02 15:54] LABS: Ionized Calcium 6.1 mg/dL (4.5-5.3)
[2018-09-02 16:01] LABS: Albumin 2.2 g/dL (3.5-5.0); Phosphorus 4.5 mg/dL (2.5-4.5)
--- NOTE | 2018-09-02 16:37 | IR ---
EXAMINATION TYPE: IR cvc insert >=5 years DATE OF EXAM: 09/02/2018 COMPARISON: NONE HISTORY: Lung carcinoma, needs long-term intravenous access for therapy FINDINGS: Maximal barrier technique was utilized. The skin overlying the right basilic vein was loca lized with ultrasound and noted to be compressible and patent by ultrasound. An ultrasound image was obtained and submitted on patient's chart. Sterile technique utilized with the ultrasound machine. T he skin overlying was prepped and draped and Lidocaine used for local anesthesia. A skin radhika was ma de with a scalpel. Access was gained to the vein under direct ultrasound guidance with a 21-gauge ne edle and a 0.018 inch wire was advanced. Access site was dilated with a peel-away sheath and the cat heter tailored to length. Catheter advanced centrally and a post procedure chest x-ray verified plac ement with the tip at the cavoatrial junction. Catheter was fixed to the skin and a sterile dressing placed. Hemostasis achieved and the catheter was aspirated and flushed with sterile saline. The pa tient remained in stable condition. IMPRESSION: STATUS POST ULTRASOUND GUIDED PICC LINE PLACEMENT, READY FOR USE. THIS PROCEDURE WAS PER FORMED BY THE UNDERSIGNED.
[2018-09-02 17:03] LABS: Glucose,Whole Blood 93 mg/dL (75-99)
[2018-09-02] MEDS: VANCOMYCIN 1,500 MG in SODIUM CHLORIDE 0.9% 250 ML IVPB SCH (17:25)
[2018-09-02 17:56] LABS: Glucose,Whole Blood 114 mg/dL (75-99)
[2018-09-02] MEDS ORDERED: MVI, ADULT NO.4 WITH VIT K 10 ML, TRACE (CONC-1ML/DOSE) 1 ML, SODIUM ACETATE 30 MEQ, PO... IV ONE ×5 (18:00)
[2018-09-02] MEDS ORDERED: WARFARIN 5 MG TAB PO ONE (18:00)
[2018-09-02] MEDS ORDERED: guaiFENesin SYRUP 100MG/5ML 200 MG/10 ML CUP PO PRN (20:41)
[2018-09-02] MEDS: amLODIPine 5 MG TAB PO SCH (20:43)
[2018-09-02] MEDS: ATORVASTATIN 10 MG TAB PO SCH (20:49)
[2018-09-02] MEDS: ARTIFICIAL TEARS-HYPROMELLOSE DROPS 15 ML BTL BOTH EYES SCH (20:50)
[2018-09-02] MEDS: METOPROLOL SUCCINATE (ER) 50 MG TAB.ER.24H PO SCH (23:11)
[2018-09-02 23:56] LABS: Glucose,Whole Blood 127 mg/dL (75-99)
[2018-09-02] MEDS: guaiFENesin SYRUP 100MG/5ML 200 MG/10 ML CUP PO SCH (23:56)
[2018-09-03] MEDS: IPRATROPIUM-ALBUTEROL 3 ML NEB INHALATION SCH ×5 (03:32→19:10)
[2018-09-03 05:38] LABS: HCT 39.5 % (39.0-53.0); HGB 12.2 gm/dL (13.0-17.5); MCH 29.5 pg (25.0-35.0); MCHC 30.8 g/dL (31.0-37.0); MCV 95.8 fL (80.0-100.0); Mean Platelet Volume 8.9; Platelet Count 185 k/uL (150-450); RBC 4.12 m/uL (4.30-5.90); RDW 13.9 % (11.5-15.5); WBC 21.7 k/uL (3.8-10.6)
[2018-09-03 05:46] LABS: Glucose,Whole Blood 124 mg/dL (75-99)
[2018-09-03 05:51] LABS: Calcium 9.8 mg/dL (8.4-10.2); Magnesium 3.1 mg/dL (1.6-2.3); Phosphorus 3.7 mg/dL (2.5-4.5); Potassium 4.3 mmol/L (3.5-5.1)
[2018-09-03] MEDS: INSULIN ASPART (NovoLOG) 100 UNIT/ML VIAL SQ SCH ×3 (06:00→20:28)
[2018-09-03] MEDS: methylPREDNISolone SOD SUCCI 40 MG/ML 1 ML VIAL IV SCH ×3 (06:05→19:07)
[2018-09-03] MEDS: guaiFENesin SYRUP 100MG/5ML 200 MG/10 ML CUP PO SCH ×3 (06:05→19:09)
[2018-09-03] MEDS: PIPERACILLIN-TAZOBACTAM 3.375 GM in SODIUM CHLORIDE 0.9% 100 ML IVPB SCH ×2 (06:05→14:25)
[2018-09-03] MEDS: SODIUM CHLORIDE 0.9% 1,000 ML IV SCH (06:12)
[2018-09-03 06:17] LABS: INR 1.4 (<1.2); Prothrombin Time 14.2 sec (9.0-12.0)
[2018-09-03] MEDS: FORMOTEROL FUMARATE 20 MCG/2 ML NEBU INHALATION SCH ×2 (07:54→19:09)
[2018-09-03] MEDS: BUDESONIDE 1 MG/2 ML NEBU INHALATION SCH ×2 (07:54→19:09)
--- NOTE | 2018-09-03 08:16 | XR ---
EXAMINATION TYPE: XR chest 1V portable DATE OF EXAM: 09/03/2018 COMPARISON: Prior chest x-ray 09/02/2018 HISTORY: Cough and shortness of breath TECHNIQUE: Single frontal view of the chest is obtained. FINDINGS: Question some increasing opacity at the right lung base. Patient is rotated. PICC line is stable. No evident pneumothorax. Heart size is unchanged. Prominent interstitial markings, right pat r mass again noted. IMPRESSION: There may be some increasing pleural effusion.
[2018-09-03] MEDS ORDERED: FAT EMULSION 20% 250 ML IV SCH (09:00)
[2018-09-03] MEDS ORDERED: SODIUM CHLORIDE 0.9% IV ONE (09:25)
[2018-09-03] MEDS ORDERED: PHENYLEPHRINE IV ONE (09:25)
[2018-09-03] MEDS ORDERED: FUROSEMIDE 10 MG/ML 4 ML VIAL IV STA (09:26)
--- NOTE | 2018-09-03 09:26 | P.NPCON ---
History of Present Illness - Reason for Consult acute renal failure - History of Present Illness Reason for consultation: Acute kidney injury History of present illness: Patient is a 83-year-old male seen in renal consultation for acute kidney injury. Patient's basic creatinine is near 1 and peaked at 1.6 to this admission on September 02. It is relatively stable at 1.57 today. Patient presented to the hospital with dyspnea. Patient was recently diagnosed with stage III squamous cell lung cancer. Patient was scheduled to start chemotherapy prior to this admission however due to the ongoing shortness of breath he came to the hospital. He is currently maintained on antibiotics for pneumonia. He was noted to have right-sided pleural effusion and underwent thoracentesis with 1.7 L drained. Patient remains short of breath and is in the process of getting intubated. Hemodynamically he's been stable. Patient is nonoliguric. Urine output has been about 75-100 mL an hour. Patient did receive IV contrast dye for a chest CT on August 30. Blood cultures have been negative. Sputum culture was positive for Agnieszka albicans. Vancomycin level noted to be 21.8 as of September 01. He is currently maintained on TPN at 30 mL an hour. He is not on any IV fluids. He is not on any nonsteroidals. Vital signs are stable. General: The patient appeared well nourished and normally developed. HEENT: Head exam is unremarkable. Neck is without jugular venous distension. LUNGS: Breath sounds decreased. HEART: Rate and Rhythm are regular. First and second heart sounds normal. No murmurs, rubs or gallops. ABDOMEN: Abdominal exam reveals normal bowel sounds. Non-tender and non- distended. EXTREMITITES: 1+ edema. Past Medical History Past Medical History: Atrial Fibrillation, Cancer, COPD, Hyperlipidemia, Hypertension, Osteoarthritis (OA), Pneumonia Additional Past Medical History / Comment(s): HX OF SKIN CANCER AND LUNG CA, GOUT History of Any Multi-Drug Resistant Organisms: MRSA Date of last positivie culture/infection: 2012 MDRO Source:: LEFT ELBOW Past Surgical History: Orthopedic Surgery Additional Past Surgical History / Comment(s): LEFT ELBOW SURGERY, lung/lymph biopsy Past Anesthesia/Blood Transfusion Reactions: No Reported Reaction Past Psychological History: No Psychological Hx Reported Smoking Status: Former smoker Past Alcohol Use History: None Reported Additional Past Alcohol Use History / Comment(s): SMOKES 1PPD OR MORE. SMOKING SINCE 16 YEARS OLD- 66 YEARS. Past Drug Use History: None Reported - Past Family History Father Family Medical History: Cancer Additional Family Medical History / Comment(s): LUNG & LIVER CANCER Medications and Allergies Home Medications Medication Instructions Recorded Confirmed Type Allopurinol [Zyloprim] 100 mg PO DAILY 07/24/15 08/26/18 History Digoxin [Lanoxin] 250 mcg PO DAILY 07/24/15 08/26/18 History Fluticasone/Salmeterol [Advair 1 puff INHALATION RT-BID 07/24/15 08/26/18 History 250-50 Diskus] Metoprolol Succinate (ER) [Toprol 50 mg PO HS 07/24/15 08/26/18 History XL] Tiotropium Canmer [Spiriva] 1 puff INHALATION RT-HS 07/24/15 08/26/18 History Ubidecarenone [Co Q-10] 200 mg PO HS 07/24/15 08/26/18 History Warfarin Sodium 2 mg PO SUTUWETHFRSA 07/24/15 08/26/18 History Carboxymethylcellulose Sodium 1 drop BOTH EYES HS 08/13/18 08/26/18 History [Refresh Tears] Fluticasone Nasal Crane [Flonase 1 spray EA NOSTRIL DAILY 08/13/18 08/26/18 History Nasal Crane] Simvastatin [Zocor] 20 mg PO HS 08/13/18 08/26/18 History Warfarin [Coumadin] 3 mg PO MO 08/13/18 08/26/18 History amLODIPine [Norvasc] 5 mg PO HS 08/13/18 08/26/18 History Allergies Allergy/AdvReac Type Severity Reaction Status Date / Time Penicillins Allergy Unknown Itching Verified 08/26/18 12:26 Physical Exam Vitals: Vital Signs Temp Pulse Resp BP Pulse Ox 09/03/18 08:27 88 09/03/18 08:26 88 09/03/18 08:10 86 95 09/03/18 07:00 90 20 95/61 93 L 09/03/18 06:01 92 26 H 100/58 93 L 09/03/18 05:00 90 25 H 98/62 93 L 09/03/18 04:01 98.2 F 95 42 H 98/62 93 L 09/03/18 03:54 90 09/03/18 03:33 88 09/03/18 03:00 80 18 92/76 93 L 09/03/18 02:00 81 23 104/56 90 L 09/03/18 01:00 93 33 H 102/63 93 L 09/03/18 00:00 98.2 F 92 26 H 94/57 92 L 09/02/18 23:53 90 09/02/18 23:37 86 09/02/18 23:00 89 25 H 98/62 93 L 09/02/18 22:30 82 35 H 98/62 94 L 09/02/18 22:00 90 21 82/53 93 L 09/02/18 21:00 106 H 33 H 94/56 93 L 09/02/18 20:35 80 09/02/18 20:24 84 09/02/18 20:09 94 09/02/18 20:00 97.9 F 87 25 H 100/55 93 L 09/02/18 19:00 84 15 89/48 93 L 09/02/18 18:00 83 20 93/57 92 L 09/02/18 17:00 84 24 87/50 95 09/02/18 16:27 90 09/02/18 16:16 88 94 L 09/02/18 16:00 98.2 F 80 24 96/62 94 L 09/02/18 15:00 82 32 H 104/60 96 09/02/18 14:00 76 21 83/54 94 L 09/02/18 13:00 81 28 H 90/54 94 L 09/02/18 12:00 80 21 81/51 95 09/02/18 11:50 78 09/02/18 11:41 74 09/02/18 11:00 80 22 81/51 96 09/02/18 10:00 80 18 91/64 95 Intake and Output 09/02/18 09/03/18 09/03/18 22:59 06:59 14:59 Intake Total 480 500 75 Output Total 660 650 75 Balance -180 -150 0 Intake: IV 280 500 75 Mvi, Adult No.4 with Vit 90 240 30 K 10 ml Trace (Conc-1Ml/ Dose) 1 ml Sodium Acetate 30 meq Potassium Chloride 20 meq In Amino Acid 5%-D15w 1,000 ml @ 30 mls/hr IV .Q24H [facility] Rx #:[id number] Piperacillin-Tazobactam 3 25 100 25 .375 gm In Sodium Chloride 0.9% 100 ml @ 25 mls/hr IVPB Q8H [facility] Rx#: [id number] Sodium Chloride 0.9% 1, 165 160 20 000 ml @ 20 mls/hr IV . Q24H [facility] Rx#:[id number] Oral 200 Output: Urine 660 650 75 Other: Voiding Method Indwelling Catheter Weight 83.1 kg Results - Lab Results Most recent lab results Calcium 9.8 mg/dL (8.4-10.2) 09/03/18 05:10 Phosphorus 3.7 mg/dL (2.5-4.5) 09/03/18 05:10 Magnesium 3.1 mg/dL (1.6-2.3) H 09/03/18 05:10 09/03/18 05:10 09/03/18 05:10 Assessment and Plan Plan: Assessment: 1. Acute kidney injury secondary to ATN secondary to infection and contrast- induced nephropathy. Baseline creatinine is 1 and peaked at 1.62 this admission. It is stable at 1.57 today. UA reveals trace proteinuria. 2. Acute hypoxic respiratory failure secondary to pneumonia and pleural effusion. 3. Right-sided pleural effusion status post thoracentesis with 1.7 L drained. 4. Mild hypernatremia secondary to lack of oral water intake. 5. Squamous cell lung cancer. 6. Pneumonia maintain on antibiotics. Plan: Lasix 40 mg IV once today. Check renal ultrasound. Avoid nephrotoxins. Continue to monitor renal function and urine output. Thank you for the consultation. I will continue to follow the patient with you during his hospital stay.
[2018-09-03 09:35] LABS: ABG Base Excess -4.7 mmol/L; ABG HCO3 23 mmol/L (21-25); ABG Oxygen Saturation 97.3 % (94-97); ABG PCO2 59 mmHg (35-45); ABG PH 7.21 (7.35-7.45); ABG PO2 112 mmHg (83-108); ABG TCO2 25 mmol/L (19-24); Allen Test Performed? Yes
--- NOTE | 2018-09-03 09:53 | XR ---
EXAMINATION TYPE: XR chest 1V portable DATE OF EXAM: 09/03/2018 COMPARISON: 09/03/2018 7:53 AM. HISTORY: Endotracheal tube placement. TECHNIQUE: Single frontal view of the chest is obtained. FINDINGS: Endotracheal tube has been inserted with its distal tip located 2 cm from the aortic arch and approximately 6.5 cm from the leonel. Enteric tube has been inserted in the interim coursing belo w the [id number] and appropriate placement cannot be determined. Right PICC is similar in position . Confluent right lung opacities are again multifocal loculated right apical pleural effusion. Cardio mediastinal silhouette appears enlarged. Skinfold overlies the left hemithorax. No sizable pneumothor ax is seen. IMPRESSION: 1. Interval insertion of an endotracheal tube terminating approximately 6.5 cm from the leonel. This could be advanced 2 to 3 cm for optimal placement. 2. Enteric tube has also been placed although the distal tip is not included in the [id number]. Ab dominal x-ray to confirm appropriate placement. 3. Incomplete inclusion of the inferior thorax, the visualized portions appear similar to the prior e arlier on the same date with multifocal right-sided airspace disease, likely multifocal pneumonia and loculated right apical pleural effusion.
[2018-09-03 10:02] VITALS: BMI 23.5
--- NOTE | 2018-09-03 10:13 | P.PN ---
Subjective Progress Note Date: 09/03/18 This is a very pleasant 83-year-old gentleman who follows with Dr. Munoz as his primary care physician. 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 Has has significant COPD treated with Advair, Spiriva, albuterol and had been seen by our group back in 2016 was noted to have abnormal CAT scan. He had undergone bronchoscopy with biopsies which were negative for malignancy. Still concerned regarding possible cancer he was referred to Dr. Oni Pond at [facility] at which time he had undergone a right-sided VATS procedure with wedge resection and mediastinal lymph node biopsies. The results of that were consistent with inflammation and suspected pseudotumor. He had been undergoing serial follow-up chest x-rays through them and there was continued suspicion for lung cancer. 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 He was just to start his initial treatment with chemo and radiation here at [facility] yesterday but has been having issues with ongoing and worsening shortness of breath over the past month and presented here to the emergency room for the same. Of note, he was admitted here earlier this same month for COPD exacerbation. He was not seen by pulmonary at that time. Discharged home on 08/17/2018 on azithromycin and a prednisone taper. Chest x-ray reveals evidence of COPD with bilateral infiltrates right greater than left and small effusions. There is also bilateral hilar enlargement with evidence of adenopathy. He is requiring 5 L high flow nasal cannula to maintain O2 saturations in the 90s. W ce count 20.4. Hemoglobin 14.5. Platelet count 279,000. INR 8.8. ProBNP 1370. Initial lactic 2.5, currently 2.0. Creatinine 0.86. He has been initiated and DuoNeb inhalations, Pulmicort and Perforomist inhalations, IV Solu-Medrol. He is on antibiotics in the form of ceftriaxone and azithromycin. The patient is seen today 08/31/2018 in follow-up in the intensive care unit. He is on 12 L high flow nasal cannula. He is feeling about the same as compared to yesterday. No significant improvements in his pulmonary status. He has been transitioned to vancomycin, Zosyn and Levaquin. CAT scan of the chest revealed prior wedge resection along the right upper to mid lung. There is extensive conglomerate mediastinal lymphadenopathy with soft tissue thickening measuring up to 3.2 cm in the subcarinal region. Additional soft tissue encases the right hilum, narrowing the bronchus intermedius and had soft the right middle lobe bronchus. There is also left hilar lymphadenopathy and a right upper lobe nodule measuring 1.4 cm. Moderate right effusion with prominent adjacent atelectasis. There is reticular nodularity throughout the right lung manufacturer representative congestion from hilar encasement versus pneumonitis. Moderate amount of emphysema. There is also layering secretions and debris in the distal tracheal place and the patient risk for aspiration. Today's chest x-ray shows apical pleural thickening on the right. Perihilar increased density persists. Right hemidiaphragm is obscured. Interstitium is increased in the right hemithorax. No pneumothorax. Sputum culture positive for Agnieszka. Blood cultures reveal no growth. White count 21.8. Hemoglobin 13.3. INR 3.5. Sodium 136. Potassium 5.3. Creatinine 1.07. The patient is seen today 09/01/2017 in follow-up in the intensive care unit. He has been requiring 15 L high flow nasal cannula to maintain O2 saturations in the low 90s. Chest x-ray reveals right pleural effusion, underlying perihilar mass and prominence of the interstitium. Mediastinal fullness. Ultrasound of the right chest revealed a large right pleural effusion measuring 16 cm. He has been afebrile. Remains in atrial fibrillation with some tachycardia. Tachypneic. Blood pressure stable. Patient culture with Agnieszka otherwise no growth. Blood culture reveals no growth. Urine culture is pending. White count 19.6. Hemoglobin 13.0. INR 2.3. Creatinine 1.39. He had been given vitamin K yesterday and again this morning. He did undergo a right-sided thoracentesis by Dr. Hood and 1700 ML's of bloody return. Sent for cultures and cytology. Follow-up chest x-ray revealed no pneumothorax and significant improvement in the right pleural effusion. The patient is seen today 09/02/2018 in follow-up in the intensive care unit. He is a bit more awake and alert today as compared to yesterday. Still having some episodes of confusion and delirium. He is requiring 15 L high flow nasal cannula but maintaining good O2 saturations in the mid 90s. He remains afebrile. Blood and urine cultures reveal no growth. White count 20.2. Hemoglobin 12.4. INR 1.3. Creatinine 1.62. INR 1.3. He remains on vancomycin, Zosyn, Levaquin. Chest x-ray continues to show some right pleural effusion. He did undergo thoracentesis yesterday was 1700 ML's of bloody return. Protein 2.4. LDH 498. Pleural fluid cultures are pending. On 09/03/2018 I'm seeing this patient in follow-up. I had a lengthy discussion with the family today. I met the daughters and the son and the mother. We reviewed the records and the chest x-rays again. Unfortunately his condition is not improving and the patient is still short of breath lethargic weak congested unable to bring up much sputum. He remains on hypoxic in. Not much of progress has been done despite aggressive bronchodilator steroids and antibiotic regimen. The patient had a follow-up chest x-ray today that showed increased opacity of the right lung. He was still in atrial fibrillation. He was having a lot of ectopies. Furthermore, he was unable to swallow. A PICC line was inserted yesterday and the patient was started on TPN was started briefly yesterday. Bas ed on all this, I made recommendations for intubation mechanical ventilation. I also recommend a bronchoscopy with herpetic airway suctioning and pulmonary toileting following the intubation process. The family was agreeable. The patient was intubated the bedside with a #4 Mac blade and #8 ET tube. Post intubation, the patient briefly became hypotensive. He had to be started on levo fed which is currently running at 12 g per minute. The patient is also sedated with propofol at 40 mics. His underlying cardiac rhythm is atrial fibrillation. He is having significant number of ectopies. No major it right in disturbances on today's blood work. The blood gases post intubation showed a pH of 7.2 with a pCO2 of 59 pO2 112 this was on the FiO2 100%. Chest x-ray post intubation showed that the ET tube is sitting up in the trachea. Would recommend advancing ET tube by around 2 cm. There is also on enteral NG tube which is in good location. There is a multifocal right-sided airspace disease which is again seen on the follow-up chest x-ray. The patient's code was sedated and patient is calm and comfortable. On and off she is having some coughing spells. His father the pleural fluid, the fluid cytology still pending for now. Nevertheless, this fluid was an exudate based on the elevated LDH level that has been noted. Fluid cytology is pending. Fluid cultures negative for now. The patient was recommended to 21.7. His creatinine is also stable at 1.57. Objective - Vital Signs Vital signs: Vital Signs Temp 98.2 F 09/03/18 04:01 Pulse 88 09/03/18 08:27 Resp 20 09/03/18 07:00 BP 95/61 09/03/18 07:00 Pulse Ox 95 09/03/18 08:10 Intake & Output 09/02/18 09/03/18 09/03/18 18:59 06:59 18:59 Intake Total 380 750 75 Output Total 1175 935 75 Balance -795 -185 0 Weight 83.1 kg Intake: IV 180 700 75 Mvi, Adult No.4 with Vit 330 30 K 10 ml Trace (Conc-1Ml/ Dose) 1 ml Sodium Acetate 30 meq Potassium Chloride 20 meq In Amino Acid 5%-D15w 1,000 ml @ 30 mls/hr IV .Q24H [facility] Rx #:[id number] Piperacillin-Tazobactam 3 125 25 .375 gm In Sodium Chloride 0.9% 100 ml @ 25 mls/hr IVPB Q8H [facility] Rx#: [id number] Sodium Chloride 0.9% 1, 180 245 20 000 ml @ 20 mls/hr IV . Q24H [facility] Rx#:[id number] Oral 200 50 Output: Urine 1175 935 75 Other: Voiding Method Indwelling Catheter Indwelling Catheter # Voids 1 - Exam Patient is currently intubated on a mechanical ventilator., Comfortable on propofol. Orogastric and orotracheal tube are both in place. Head exam was generally normal. There was no scleral icterus or corneal arcus. Mucous membranes were moist. Neck was supple and without jugular venous distension, thyromegaly, or carotid bruits. Carotids were easily palpable bilaterally. There was no adenopathy. Lungs sounds are diminished bilaterally especially in the right lung base and there are also scattered rhonchi. Heart sounds are irregular and there is significant number of ectopies. No cervical murmurs appreciated. No S3 gallop. No significant murmurs appreciated at this point in time. Abdominal exam revealed normal bowel sounds. The abdomen was soft, non-tender, and without masses, organomegaly, or appreciable enlargement of the abdominal aorta. Examination of the extremities revealed easily palpable radial, femoral and pedal pulses. There was no cyanosis, clubbing or edema. Examination of the skin revealed no evidence of significant rashes, suspicious appearing nevi or other concerning lesions. Neurologic the patient sedated and is calm and comfortable. Her neurologic exam is nonfocal. No facial asymmetry. Pupils are equal and reactive to light. - Labs CBC & Chem 7: 09/03/18 05:10 09/03/18 05:10 Labs: Abnormal Lab Results - Last 24 Hours (Table) 09/02/18 09/02/18 09/02/18 Range/Units 11:41 15:32 17:44 WBC (3.8-10.6) k/uL RBC (4.30-5.90) m/uL Hgb (13.0-17.5) gm/dL MCHC (31.0-37.0) g/dL PT (9.0-12.0) sec INR (<1.2) ABG pH (7.35-7.45) ABG pCO2 (35-45) mmHg ABG pO2 (83-108) mmHg ABG Total CO2 (19-24) mmol/L ABG O2 Saturation (94-97) % Sodium (137-145) mmol/L Chloride (98-107) mmol/L BUN (9-20) mg/dL Creatinine (0.66-1.25) mg/dL Glucose (74-99) mg/dL POC Glucose (mg/dL) 108 H 114 H (75-99) mg/dL Ionized Calcium Michael 6.1 H* (4.5-5.3) mg/dL Magnesium 3.0 H (1.6-2.3) mg/dL Albumin 2.2 L (3.5-5.0) g/dL 09/02/18 09/03/18 09/03/18 Range/Units 23:44 05:10 05:10 WBC 21.7 H (3.8-10.6) k/uL RBC 4.12 L (4.30-5.90) m/uL Hgb 12.2 L (13.0-17.5) gm/dL MCHC 30.8 L (31.0-37.0) g/dL PT (9.0-12.0) sec INR (<1.2) ABG pH (7.35-7.45) ABG pCO2 (35-45) mmHg ABG pO2 (83-108) mmHg ABG Total CO2 (19-24) mmol/L ABG O2 Saturation (94-97) % Sodium 146 H (137-145) mmol/L Chloride 115 H (98-107) mmol/L BUN 86 H (9-20) mg/dL Creatinine 1.57 H (0.66-1.25) mg/dL Glucose 136 H (74-99) mg/dL POC Glucose (mg/dL) 127 H (75-99) mg/dL Ionized Calcium Michael (4.5-5.3) mg/dL Magnesium 3.1 H (1.6-2.3) mg/dL Albumin (3.5-5.0) g/dL 09/03/18 09/03/18 09/03/18 Range/Units 05:33 05:35 09:33 WBC (3.8-10.6) k/uL RBC (4.30-5.90) m/uL Hgb (13.0-17.5) gm/dL MCHC (31.0-37.0) g/dL PT 14.2 H (9.0-12.0) sec INR 1.4 H (<1.2) ABG pH 7.21 L (7.35-7.45) ABG pCO2 59 H (35-45) mmHg ABG pO2 112 H (83-108) mmHg ABG Total CO2 25 H (19-24) mmol/L ABG O2 Saturation 97.3 H (94-97) % Sodium (137-145) mmol/L Chloride (98-107) mmol/L BUN (9-20) mg/dL Creatinine (0.66-1.25) mg/dL Glucose (74-99) mg/dL POC Glucose (mg/dL) 124 H (75-99) mg/dL Ionized Calcium Michael (4.5-5.3) mg/dL Magnesium (1.6-2.3) mg/dL Albumin (3.5-5.0) g/dL Microbiology - Last 24 Hours (Table) 08/31/18 15:21 Blood Culture - Preliminary Blood No Growth after 48 hours 08/31/18 15:20 Blood Culture - Preliminary Blood No Growth after 48 hours 09/01/18 09:55 Gram Stain - Preliminary Pleural Fluid Body Fluid Culture - Preliminary Assessment and Plan Plan: 1 acute hypoxic respiratory failure secondary to an extensive right lung pneumonia with a parapneumonic effusion. The patient was a high flow oxygen and subsequently was intubated and placed on mechanical ventilator for now. 2 parapneumonic right-sided pleural effusion, post thoracentesis and evacuation of 1.7 L of pleural fluid. 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 Based on the need for various procedures, and admission was stopped and the patient's INR is down to 1.4 on today's evaluation. 10 history of smoking 11 acute kidney injury, creatinine stable at 1.5 12 leukocytosis secondary to above 13 hypertension, likely can is pneumonia and sepsis and the patient is currently on pressors. Plan Continue vent support. Necessary ventilator changes were done and the blood gases were repeated. She will post in by another 2 cm. Continue same antibiotic coverage. Repeat electrolytes. Keep the patient sedated with propofol. Norepinephrine infusion for blood pressure control. The patient liter of fluid bolus. Maintenance fluid to be 50 mL an hour. Initiate enteral feeding for nutritional support. Stop the TPN for now. We're going to proceed with a bronchoscopy and evaluate the right mainstem and the bronchus intermedius and obtain lavage and cultures from the right lung regarding ongoing problems of the right lung pneumonia. Meanwhile, the patient will be kept sedated. We'll monitor hemodynamics. May need to restart anticoagulation post bronchoscopy and I will suggest putting the patient IV heparin for now. PICC line has been inserted. Monitor renal function. We'll continue to follow. Condition is critical. Family is aware. Unfortunately the prognosis poor specially with underlying stage III B non-small cell lung cancer. This critically care evaluation that was done and more than 30 minutes excluding time to do any procedures. Time with Patient: Greater than 30
[2018-09-03] MEDS: FLUTICASONE 50MCG/SPRAY NASAL 16GM EA NOSTRIL SCH (10:22)
[2018-09-03] MEDS: PANTOPRAZOLE 40 MG TABLET PO SCH ×2 (10:23→20:48)
[2018-09-03] MEDS: ALLOPURINOL 100 MG TAB PO SCH (10:25)
[2018-09-03 10:37] LABS: ABG Base Excess -4.3 mmol/L; ABG HCO3 22 mmol/L (21-25); ABG Oxygen Saturation 98.7 % (94-97); ABG PCO2 45 mmHg (35-45); ABG PO2 132 mmHg (83-108); ABG TCO2 24 mmol/L (19-24); Allen Test Performed? Yes
[2018-09-03] MEDS ORDERED: CHLORHEXIDINE GLUCONATE 15 ML CUP MUCOUS MEM ONE (10:39)
[2018-09-03] MEDS: DIGOXIN 250 MCG TAB PO SCH (10:46)
[2018-09-03] MEDS: NOREPINEPHRINE 8 MG in SODIUM CHLORIDE 0.9% 250 ML IV SCH ×3 (10:46→21:30)
[2018-09-03 11:12] LABS: Calcium 9.3 mg/dL (8.4-10.2); Potassium 4.3 mmol/L (3.5-5.1); Total Bilirubin 0.5 mg/dL (0.2-1.3); Total Protein 4.5 g/dL (6.3-8.2)
[2018-09-03 11:58] LABS: Glucose,Whole Blood 165 mg/dL (75-99)
[2018-09-03] MEDS ORDERED: AMIODARONE 360 MG in DEXTROSE 5% IN WATER 200 ML IV ONE ×2 (11:59)
[2018-09-03] MEDS ORDERED: DEXTROSE 5% IN WATER 100 ML with AMIODARONE 150 MG IV ONE (11:59)
[2018-09-03] MEDS ORDERED: DEXTROSE 5% IN WATER 250 ML with AMIODARONE 300 MG IV ONE (11:59)
[2018-09-03] MEDS ORDERED: LEVOFLOXACIN 750MG-D5W PMX 750 MG in DEXTROSE/WATER 1 150ML.BAG IVPB SCH (12:00)
--- NOTE | 2018-09-03 12:19 | ECHOF ---
Referral Reason:CARDIAC FUNCTION MEASUREMENTS -------- HEIGHT: 188.0 cm WEIGHT: 83.0 kg BP: 77/43 RVIDd: 4.0 cm (< 3.3) IVSd: 1.5 cm (0.6 - 1.1) LVIDd: 3.5 cm (3.9 - 5.3) LVPWd: 1.3 cm (0.6 - 1.1) IVSs: 1.5 cm LVIDs: 2.8 cm LVPWs: 1.4 cm LAESV Index (A-L): 12.13 ml/m Ao Diam: 2.8 cm (2.0 - 3.7) AV Cusp: 1.7 cm (1.5 - 2.6) LA Diam: 3.8 cm (2.7 - 3.8) AR PHT: 495 ms RAP: 20.00 mmHg RVSP: 78.11 mmHg FINDINGS -------- AFIB WITH RVR Pt. on a vent. This was a techncally difficult study with suboptimal views, , Lumason utilized for enhancement of images. The left ventricular size is normal. There is moderate concentric left ventricular hypertrophy. O verall left ventricular systolic function is low-normal with, an EF between 50 - 55 %. Left ventric ular fillimg pressure cannot be estimated due to Atrial fibrillation. The right ventricle is moderate to severely enlarged. Normal LA size by volume 22+/-6 ml/m2. The right atrium is moderately enlarged. Interatrial and interventricular septum intact. The aortic valve was not well visualized. There is mild aortic valve sclerosis. There is mild aor tic regurgitation. There is no evidence of aortic stenosis. The mitral valve was not well visualized. There is trace mitral regurgitation. Moderate to severe tricuspid regurgitation present. There is severe pulmonary hypertension. The r ight ventricular systolic pressure, as measured by Doppler, is 78.11mmHg. There is no pulmonic regurgitation present. The aortic root size is normal. The inferior vena cava is dilated with no significant inspiratory collapse which is consistent estima chad right atrial pressure of >20 mmHg. There is a small, generalized pericardial effusion present. CONCLUSIONS -------- 1. AFIB WITH RVR 2. Pt. on a vent. 3. This was a techncally difficult study with suboptimal views, , Lumason utilized for enhancement of images. 4. The left ventricular size is normal. 5. There is moderate concentric left ventricular hypertrophy. 6. Left ventricular fillimg pressure cannot be estimated due to Atrial fibrillation. 7. The right ventricle is moderate to severely enlarged. 8. Normal LA size by volume 22+/-6 ml/m2. 9. The right atrium is moderately enlarged. 10. Interatrial and interventricular septum intact. 11. The aortic valve was not well visualized. 12. There is mild aortic valve sclerosis. 13. There is mild aortic regurgitation. 14. There is no evidence of aortic stenosis. 15. The mitral valve was not well visualized. 16. There is trace mitral regurgitation. 17. Moderate to severe tricuspid regurgitation present. 18. There is severe pulmonary hypertension. 19. The right ventricular systolic pressure, as measured by Doppler, is 78.11mmHg. 20. There is no pulmonic regurgitation present. 21. The aortic root size is normal. 22. The inferior vena cava is dilated with no significant inspiratory collapse which is consistent es timated right atrial pressure of >20 mmHg. 23. There is a small, generalized pericardial effusion present. [employer]: Carly Tesfaye RDCS
--- NOTE | 2018-09-03 12:34 | CDI ---
Documentation Clarification Form Date: 09/03/2018 12:09:55 PM From: Silvia AstudilloRomeroLEO rivers, CCDS Admit Date: 08/26/2018 2:46:00 PM Patient Name: Riky Cisneros Visit Number: [id number] Discharge Date: ATTENTION: The Clinical Documentation Specialists (CDI) and [facility] Coding Staff appreciate your assistance in clarifying documentation. Please respond to the clarification below the line at the bottom and electronically sign. The CDI & [facility] Coding staff will review the response and follow-up if needed. Please note: Queries are made part of the Legal Health Record. If you have any questions, please contact the author of this message via ITS. Dr. Prerna Fatima: Per the 09/03 progress note (pulmonary): Hypertension, likely ( ) pneumonia & sepsis, currently on pressors. Patient remains in atrial fibrillation. Patient is in acute hypoxic respiratory failure, has metabolic encephalopathy, PAIGE & pneumonia. History/Risk Factors: Previous admission for COPD exacerbation & pneumonia (August 17). Lung CA, Persistent Atrial Fibrillation, Hypertension, Hyperlipidemia & former smoker. Clinical Indicators: Presented with SOB, cough, yellow sputum, poor appetite, wheezing. . Diagnosed with metastatic squamous cell cancer via bronchoscopy at [facility]. Pt is due to start chemotherapy soon. Admission VS: T 97.7, P 82, R 22 (sob), BP 125/70, PO 93 4Lnc. VS: 08/31: T 97.2*, P 80s, R 28 - 44^ (SOB, accessory muscle use, cough, shallow), BP 124/63 - 99/63, 87 high flow 15%. WBC: 08/26: 18.4^ - 23.2 (08/30) Lactic acid: 08/26 2.5^^ Blood cultures: neg x3, Sutum cultures: Agnieszka albicans. Urine culture: negative. Treatment: IV Rocephin, IV fluid bolus, IV Azithromycin, INH Albuterol, O2 4Lnc. 09/01 Rt thoracentesis, cytology pending. 09/03: Patient intubated on vent. IV Levophed & sedated. PICC line inserted for TPN on 09/02. IV Heparin. In your professional opinion, please clarify if these findings signify one of the following conditions, whether the condition is POA, and cause, if known: o Sepsis ruled out o Sepsis ruled in o Severe Sepsis o Septic Shock o Other, please specify o Unable to determine Present on Admission: Yes or No Link or clarify if there is associated (due to/with): Organ failure or Shock (Last Revision: May 2017) Unable to determine, present on admission, unknown organ failure or shock association MTDD
[2018-09-03 13:29] VITALS: BP 177/106
--- NOTE | 2018-09-03 14:18 | PCN ---
PROCEDURE NOTE PREOPERATIVE DIAGNOSES: Acute respiratory failure, non-small cell lung cancer, right lower lobe pneumonia. POSTOPERATIVE DIAGNOSES: Acute respiratory failure, non-small cell lung cancer, right lower lobe pneumonia. PROCEDURE: Arterial line catheter insertion. ARTERIAL LINE PLACEMENT: Indications: Hemodynamic monitoring. A time-out was completed verifying correct patient, procedure, site, positioning, and implant(s) or special equipment if applicable. Lito's test was performed to ensure adequate perfusion. The patient's left wrist was prepped and draped in sterile fashion. 1% Lidocaine was used to anesthetize the area. An 18G Arrow arterial line was introduced into the left radial artery. The catheter was threaded over the guide wire and the needle was removed with appropriate pulsatile blood return. Blood loss was minimal. The catheter was then sutured in place to the skin and a sterile dressing applied. Perfusion to the extremity distal to the point of catheter insertion was checked and found to be adequate. The patient tolerated the procedure well and there were no complications. Site of insertion is the left radial artery. No bedside complications or bleeding. MMODL / IJN: [id number] /
--- NOTE | 2018-09-03 14:18 | PCN ---
PROCEDURE NOTE PROCEDURE: Intubation. PREOPERATIVE DIAGNOSES: Acute respiratory failure, non-small cell lung cancer, right lower lobe pneumonia. POSTOPERATIVE DIAGNOSES: Acute respiratory failure, non-small cell lung cancer, right lower lobe pneumonia. ENDOTRACHEAL INTUBATION: <Indication:> Respiratory compromise. A time-out was completed verifying correct patient, procedure, site, positioning, and implant(s) or special equipment if applicable. The patient was positioned appropriately and a #8 endotracheal tube was placed under direct laryngoscopy. The tube was anchored at 22 cm at the teeth. Correct placement was confirmed by presence of bilateral breath sounds without air sounds in the abdomen on auscultation. An end-tidal CO2 monitor was also used to confirm tracheal placement of the ET tube. A chest x-ray was ordered to assess for pneumothorax and verify endotracheal tube placement. The patient tolerated the procedure well and there were no complications. I used a #4 MAC blade. Then I intubated the patient by #8 ET tube. No bedside complications or bleeding. MMODL / IJN: [id number] /
--- NOTE | 2018-09-03 14:27 | PCN ---
PROCEDURE NOTE PREOPERATIVE DIAGNOSES: Acute respiratory failure, non-small cell lung cancer, right lower lobe pneumonia. POSTOPERATIVE DIAGNOSES: Acute respiratory failure, non-small cell lung cancer, right lower lobe pneumonia. PROCEDURE: Bronchoscopy. DESCRIPTION OF PROCEDURE: This procedure was done in the intensive care unit. The patient was already intubated on a mechanical ventilator. The patient was already sedated with propofol. An adapter was attached to the orotracheal tube. Following that, the bronchoscope was advanced through the orotracheal tube into the lower trachea. The tip of the orotracheal tube was seen around 3 cm above the leonel. Leonel was sharp in the midline. Examination of the left mainstem bronchus, left upper and left lower lobe bronchus was done and it was within normal limits and it was patent. There were some respiratory secretions that were suctioned out without any major difficulties. The bronchoscope was then moved to the right side. Right mainstem bronchus was open. The bronchus intermedius was progressively getting narrowed distally and at the site of the leonel between right lower lobe bronchus and the right middle lobe bronchus there was significant anatomic distortion where there was mucosal irregularities and expressing compression along with endobronchial involvement with tumor causing near complete occlusion of the right middle lobe bronchus to the point where I was unable to push the bronchoscope into the involved airway. Similarly, the superior segment of the right lower lobe and the basal segments of the right lower lobe were quite irregular extrinsically compressed and anatomically distorted consistent with extrinsic compression and endobronchial involvement with malignancy. Bronchoscope was then moved to the right upper lobe. I was able to go into the right upper lobe bronchus without any major difficulties and various segments were noted. At this point, the bronchoscope was moved to the right lower lobe anterior segment and bronchoalveolar lavage was done where a total of mL of fluid was infused and 25 to 30 mL were suctioned out without any major difficulties. At this point, the procedure was terminated. The bronchoscope was removed and the procedure was completed without any major complications. Pulse ox remained above 90% throughout the procedure. POSTOPERATIVE DIAGNOSES: 1. Metastatic squamous cell carcinoma of the lung. 2. Extensive anatomic distortion of the airway involving the bronchus intermedius and the right middle lobe bronchus and the right lower lobe bronchus. There is near complete occlusion of the right middle lobe bronchus, significant narrowing of the various segments of the right lower lobe due to endobronchial tumor and extrinsic compression. MMODL / IJN: [id number] /
--- NOTE | 2018-09-03 14:39 | P.PN ---
Subjective Progress Note Date: 09/03/18 Principal diagnosis: Acute Respiratory Failure Status Post Bronchoscopy today Objective - Vital Signs Vital signs: Vital Signs Temp 98.8 F 09/03/18 12:00 Pulse 115 H 09/03/18 14:00 Resp 28 H 09/03/18 14:00 BP 177/106 09/03/18 14:00 Pulse Ox 98 09/03/18 14:00 Intake & Output 09/02/18 09/03/18 09/03/18 18:59 06:59 18:59 Intake Total 542 053 0590 Output Total 1175 935 360 Balance -795 -185 2014 Weight 83.1 kg 83.1 kg 83.1 kg Intake: IV 911 538 7414 Mvi, Adult No.4 with Vit 330 30 K 10 ml Trace (Conc-1Ml/ Dose) 1 ml Sodium Acetate 30 meq Potassium Chloride 20 meq In Amino Acid 5%-D15w 1,000 ml @ 30 mls/hr IV .Q24H [facility] Rx #:[id number] Piperacillin-Tazobactam 3 125 25 .375 gm In Sodium Chloride 0.9% 100 ml @ 25 mls/hr IVPB Q8H [facility] Rx#: [id number] Sodium Chloride 0.9% 1, 866 493 5752 000 ml @ 20 mls/hr IV . Q24H [facility] Rx#:[id number] Oral 200 50 Output: Urine 1175 935 360 Other: Voiding Method Indwelling Catheter Indwelling Catheter Indwelling Catheter # Voids 1 ABP, PAP, CO, CI - Last Documented Arterial Blood Pressure 87/46 - Exam Ventilator Increased respiratory effort Increased HR - Labs CBC & Chem 7: 09/03/18 05:10 09/03/18 10:36 Labs: Abnormal Lab Results - Last 24 Hours (Table) 09/02/18 09/02/18 09/02/18 Range/Units 15:32 17:44 23:44 WBC (3.8-10.6) k/uL RBC (4.30-5.90) m/uL Hgb (13.0-17.5) gm/dL MCHC (31.0-37.0) g/dL PT (9.0-12.0) sec INR (<1.2) ABG pH (7.35-7.45) ABG pCO2 (35-45) mmHg ABG pO2 (83-108) mmHg ABG Total CO2 (19-24) mmol/L ABG O2 Saturation (94-97) % Sodium (137-145) mmol/L Chloride (98-107) mmol/L Carbon Dioxide (22-30) mmol/L BUN (9-20) mg/dL Creatinine (0.66-1.25) mg/dL Glucose (74-99) mg/dL POC Glucose (mg/dL) 114 H 127 H (75-99) mg/dL Ionized Calcium Michael 6.1 H* (4.5-5.3) mg/dL Magnesium 3.0 H (1.6-2.3) mg/dL Total Protein (6.3-8.2) g/dL Albumin 2.2 L (3.5-5.0) g/dL 09/03/18 09/03/18 09/03/18 Range/Units 05:10 05:10 05:33 WBC 21.7 H (3.8-10.6) k/uL RBC 4.12 L (4.30-5.90) m/uL Hgb 12.2 L (13.0-17.5) gm/dL MCHC 30.8 L (31.0-37.0) g/dL PT (9.0-12.0) sec INR (<1.2) ABG pH (7.35-7.45) ABG pCO2 (35-45) mmHg ABG pO2 (83-108) mmHg ABG Total CO2 (19-24) mmol/L ABG O2 Saturation (94-97) % Sodium 146 H (137-145) mmol/L Chloride 115 H (98-107) mmol/L Carbon Dioxide (22-30) mmol/L BUN 86 H (9-20) mg/dL Creatinine 1.57 H (0.66-1.25) mg/dL Glucose 136 H (74-99) mg/dL POC Glucose (mg/dL) 124 H (75-99) mg/dL Ionized Calcium Michael (4.5-5.3) mg/dL Magnesium 3.1 H (1.6-2.3) mg/dL Total Protein (6.3-8.2) g/dL Albumin (3.5-5.0) g/dL 09/03/18 09/03/18 09/03/18 Range/Units 05:35 09:33 10:36 WBC (3.8-10.6) k/uL RBC (4.30-5.90) m/uL Hgb (13.0-17.5) gm/dL MCHC (31.0-37.0) g/dL PT 14.2 H (9.0-12.0) sec INR 1.4 H (<1.2) ABG pH 7.21 L 7.30 L (7.35-7.45) ABG pCO2 59 H (35-45) mmHg ABG pO2 112 H 132 H (83-108) mmHg ABG Total CO2 25 H (19-24) mmol/L ABG O2 Saturation 97.3 H 98.7 H (94-97) % Sodium (137-145) mmol/L Chloride (98-107) mmol/L Carbon Dioxide (22-30) mmol/L BUN (9-20) mg/dL Creatinine (0.66-1.25) mg/dL Glucose (74-99) mg/dL POC Glucose (mg/dL) (75-99) mg/dL Ionized Calcium Michael (4.5-5.3) mg/dL Magnesium (1.6-2.3) mg/dL Total Protein (6.3-8.2) g/dL Albumin (3.5-5.0) g/dL 09/03/18 09/03/18 09/03/18 Range/Units 10:36 10:36 11:47 WBC (3.8-10.6) k/uL RBC (4.30-5.90) m/uL Hgb (13.0-17.5) gm/dL MCHC (31.0-37.0) g/dL PT (9.0-12.0) sec INR (<1.2) ABG pH (7.35-7.45) ABG pCO2 (35-45) mmHg ABG pO2 (83-108) mmHg ABG Total CO2 (19-24) mmol/L ABG O2 Saturation (94-97) % Sodium (137-145) mmol/L Chloride 118 H (98-107) mmol/L Carbon Dioxide 21 L (22-30) mmol/L BUN 81 H (9-20) mg/dL Creatinine 1.56 H (0.66-1.25) mg/dL Glucose 139 H (74-99) mg/dL POC Glucose (mg/dL) 165 H (75-99) mg/dL Ionized Calcium Michael (4.5-5.3) mg/dL Magnesium 3.0 H (1.6-2.3) mg/dL Total Protein 4.5 L (6.3-8.2) g/dL Albumin 2.0 L (3.5-5.0) g/dL Microbiology - Last 24 Hours (Table) 09/01/18 09:55 Anaerobic Culture - Preliminary Pleural Fluid 09/01/18 09:55 Gram Stain - Preliminary Pleural Fluid Body Fluid Culture - Preliminary 08/31/18 15:21 Blood Culture - Preliminary Blood No Growth after 48 hours 08/31/18 15:20 Blood Culture - Preliminary Blood No Growth after 48 hours Assessment and Plan (1) Squamous cell lung cancer Current Visit: Yes Status: Acute Priority: High Code(s): C34.90 - MALIGNANT NEOPLASM OF UNSP PART OF UNSP BRONCHUS OR LUNG SNOMED Code(s): 554629305 (2) Hyperkalemia Current Visit: Yes Status: Acute Code(s): E87.5 - HYPERKALEMIA SNOMED Code(s): 65504978 (3) Pneumonia Current Visit: Yes Status: Acute Code(s): J18.9 - PNEUMONIA, UNSPECIFIED ORGANISM SNOMED Code(s): 855860682 (4) Acute exacerbation of chronic obstructive airways disease Current Visit: No Status: Acute Code(s): J44.1 - CHRONIC OBSTRUCTIVE PULMONARY DISEASE W (ACUTE) EXACERBATION SNOMED Code(s): 355547565 Plan: Assessment and recommendations: Non-Small Cell Lung Cancer: Stage III (Recent Diagnosis): - Treatment plan was XRT and CHemotherapy concurrent to begin 08.26.18 - Did not begin due to hospitalization - Will have Radiation oncology on board while hospitalized Exacerbation COPD: Recurrent: - Pulmonology Following Acute on Chronic Respiratory Failure: - Ventilator - Worsening with Exacerbation COPD and treatment need lung cancer Atrial Fibrillation: - Warfarin per Cardiology - AC on hold for Coagulopathy Coumadin Coagulaopathy - Improved - INR 1.4 today Hypercalcemia/Hypekalemia:Improved - Secondary to dehydration - IVF - Status Post Biphosphonate and Calcitonin - Monitoring - Primary Team
[2018-09-03] MEDS: FLUCONAZOLE IN NACL,ISO-OSM 100 MG in SALINE 1 50ML.BAG IVPB SCH (16:23)
--- NOTE | 2018-09-03 16:59 | P.PN ---
Subjective Progress Note Date: 09/03/18 Principal diagnosis: This is an 83-year-old male that was admitted for COPD exacerbation with pneumonia. Patient was recently just moved the ICU today for worsening of his respiratory status. Patient was having labored breathing with increasing respirations. Patient is being closely monitored. Patient is hard of hearing but denies any chest pain or palpitations at this time. Oncology is following the patient as well as the patient recently had a needle biopsy showing he was positive for metastasis of squamous cell lung cancer. Patient was expected to start treatment shortly. 08/31/2018 This is an 83-year-old male that was admitted for COPD exacerbation with pneumon ia. The patient is currently still in the ICU and states that his breathing has not improved since yesterday. Patient states that he is having a lot of difficulty in breathing and shortness of breath. Patient's respirations are approximately 32/m at this time. Patient is currently on high flow oxygen at 15 L. Patient denies any chest pain, or palpitations at this time. Patient is having a little bit of nausea and hasn't been eating well per family but is drinking small sips. Dr. Hood is closely following the patient. Oncology is following as well. Chest x-ray from today shows a right pleural effusion no chest ultrasound with markings was done today. Patient is to have a thorace ntesis done in the morning. Family is at the bedside. They were concerned because he hasn't had a bowel movement since he has been here in the last 5 days. Dulcolax suppository when necessary was ordered. Zofran was also ordered as needed if the patient continues to have nausea. 09/01/2018 Patient is sitting upright in bed having some respiratory distress and no real improvement from yesterday. Patient family is at the bedside and states that his breathing has gotten worse. Patient is denying any chest pain or palpitations at this time. Patient denies any vomiting or abdominal discomfort at this time. Patient is still having occasional waves of nausea but not eating very well at all. Patient states that he doesn't have much of an appetite. Patient is receiving some Vitamin K this morning IV as he is to have a right thoracentesis with Dr. Hood. Will await report from the procedure. Will continue to monitor closely. Patient is still currently on high flow 02 via NC at 15L. 09/02/2018 Patient is sitting upright in bed and appears to be a little more relaxed with lower respirations and oxygen saturations in the mid 90's. Patient is still having some shortness of breath but states that it has gotten a little easier to breathe. Patient is still on 15L high flow via NC. Patient underwent a thoracentesis yesterday with Dr. Hood and a total of 1700mL of pleural fluid was removed. This morning's chest x-ray showing an interval blunting of the right costophrenic angle suggesting a reaccumulation of the right pleural effusion. Pulmonary is following closely as the patient is still in the ICU. Patient denies any chest pain, palpitations, nausea, or vomiting at this time. Patient has not been eating very well just ice chips and family is concerned that he hasn't eaten nor had a bowel movement for almost 2 weeks. Patient is receiving a PICC line today for TPN administration as he has not been eating and having difficulty with swallowing. Patient has been chewing up his medications per RN. A swallow eval was ordered. Pleural fluid cultures and cytology are still pending from the thoracentesis yesterday. Patient is being closely monitored. Extremely guarded prognosis. 09/03/2018 Patient is currently still in the ICU and was recently intubated this morning due to respiratory deterioration with increased work of breathing, fatigue. Patient was still remaining in atrial fibrillation and having a few runs of ectopy. After intubation patient became hypotensive and per Dr. Hood the patient was started on levophed for blood pressure control. The patient is currently sedated with propofol as well. Patient is to undergo a bronchoscopy this afternoon. Will await for cytology report. We'll continue to monitor closely. TPN is being held at this time. Extremely guarded prognosis. Objective - Vital Signs Vital signs: Vital Signs Temp 98.8 F 09/03/18 12:00 Pulse 123 H 09/03/18 15:22 Resp 28 H 09/03/18 15:22 BP 177/106 09/03/18 14:00 Pulse Ox 98 09/03/18 14:00 Intake & Output 09/02/18 09/03/18 09/03/18 18:59 06:59 18:59 Intake Total 691 336 1626 Output Total 9491 735 360 Balance -795 185 2014 Weight 83.1 kg 83.1 kg 83.1 kg Intake: IV 881 835 5497 Mvi, Adult No.4 with Vit 330 30 K 10 ml Trace (Conc-1Ml/ Dose) 1 ml Sodium Acetate 30 meq Potassium Chloride 20 meq In Amino Acid 5%-D15w 1,000 ml @ 30 mls/hr IV .Q24H [facility] Rx #:[id number] Piperacillin-Tazobactam 3 125 25 .375 gm In Sodium Chloride 0.9% 100 ml @ 25 mls/hr IVPB Q8H [facility] Rx#: [id number] Sodium Chloride 0.9% 1, 457 542 9261 000 ml @ 20 mls/hr IV . Q24H [facility] Rx#:[id number] Oral 200 50 Output: Urine 1175 935 360 Other: Voiding Method Indwelling Catheter Indwelling Catheter Indwelling Catheter # Voids 1 ABP, PAP, CO, CI - Last Documented Arterial Blood Pressure 87/46 - Exam Gen: This is a 83-year-old male lying in bed and is intubated. Vital signs are 98.5F, pulse is 137, blood pressure is 91/64, respirations are 28, oxygen saturation is 98% HEENT: Head is atraumatic, normocephalic. Pupils equal, round. Sclerae is anicteric. Patient is intubated. OG tube is placed NECK: Supple. No JVD. No lymphadenopathy. No thyromegaly. LUNGS: Diminished bilaterally more so in the right with expiratory wheezing and crackles noted. Accessory muscle use noted on exam. Patient is on a ventilator HEART: Regular rate and rhythm. No murmur. ABDOMEN: Soft. Bowel sounds are present. No masses. No tenderness. EXTREMITIES: No pedal edema. No calf tenderness. mild left upper extremity swelling noted NEUROLOGICAL: Patient is intubated and sedated. Labs: WBC 21.7, BUN 86, CR 1.57, Calcium 9.8, Potassium is 4.3 - Labs CBC & Chem 7: 09/03/18 05:10 09/03/18 10:36 Labs: Abnormal Lab Results - Last 24 Hours (Table) 09/02/18 09/02/18 09/03/18 Range/Units 17:44 23:44 05:10 WBC (3.8-10.6) k/uL RBC (4.30-5.90) m/uL Hgb (13.0-17.5) gm/dL MCHC (31.0-37.0) g/dL PT (9.0-12.0) sec INR (<1.2) ABG pH (7.35-7.45) ABG pCO2 (35-45) mmHg ABG pO2 (83-108) mmHg ABG Total CO2 (19-24) mmol/L ABG O2 Saturation (94-97) % Sodium 146 H (137-145) mmol/L Chloride 115 H (98-107) mmol/L Carbon Dioxide (22-30) mmol/L BUN 86 H (9-20) mg/dL Creatinine 1.57 H (0.66-1.25) mg/dL Glucose 136 H (74-99) mg/dL POC Glucose (mg/dL) 114 H 127 H (75-99) mg/dL Magnesium 3.1 H (1.6-2.3) mg/dL Total Protein (6.3-8.2) g/dL Albumin (3.5-5.0) g/dL 09/03/18 09/03/18 09/03/18 Range/Units 05:10 05:33 05:35 WBC 21.7 H (3.8-10.6) k/uL RBC 4.12 L (4.30-5.90) m/uL Hgb 12.2 L (13.0-17.5) gm/dL MCHC 30.8 L (31.0-37.0) g/dL PT 14.2 H (9.0-12.0) sec INR 1.4 H (<1.2) ABG pH (7.35-7.45) ABG pCO2 (35-45) mmHg ABG pO2 (83-108) mmHg ABG Total CO2 (19-24) mmol/L ABG O2 Saturation (94-97) % Sodium (137-145) mmol/L Chloride (98-107) mmol/L Carbon Dioxide (22-30) mmol/L BUN (9-20) mg/dL Creatinine (0.66-1.25) mg/dL Glucose (74-99) mg/dL POC Glucose (mg/dL) 124 H (75-99) mg/dL Magnesium (1.6-2.3) mg/dL Total Protein (6.3-8.2) g/dL Albumin (3.5-5.0) g/dL 09/03/18 09/03/18 09/03/18 Range/Units 09:33 10:36 10:36 WBC (3.8-10.6) k/uL RBC (4.30-5.90) m/uL Hgb (13.0-17.5) gm/dL MCHC (31.0-37.0) g/dL PT (9.0-12.0) sec INR (<1.2) ABG pH 7.21 L 7.30 L (7.35-7.45) ABG pCO2 59 H (35-45) mmHg ABG pO2 112 H 132 H (83-108) mmHg ABG Total CO2 25 H (19-24) mmol/L ABG O2 Saturation 97.3 H 98.7 H (94-97) % Sodium (137-145) mmol/L Chloride 118 H (98-107) mmol/L Carbon Dioxide 21 L (22-30) mmol/L BUN 81 H (9-20) mg/dL Creatinine 1.56 H (0.66-1.25) mg/dL Glucose 139 H (74-99) mg/dL POC Glucose (mg/dL) (75-99) mg/dL Magnesium (1.6-2.3) mg/dL Total Protein 4.5 L (6.3-8.2) g/dL Albumin 2.0 L (3.5-5.0) g/dL 09/03/18 09/03/18 Range/Units 10:36 11:47 WBC (3.8-10.6) k/uL RBC (4.30-5.90) m/uL Hgb (13.0-17.5) gm/dL MCHC (31.0-37.0) g/dL PT (9.0-12.0) sec INR (<1.2) ABG pH (7.35-7.45) ABG pCO2 (35-45) mmHg ABG pO2 (83-108) mmHg ABG Total CO2 (19-24) mmol/L ABG O2 Saturation (94-97) % Sodium (137-145) mmol/L Chloride (98-107) mmol/L Carbon Dioxide (22-30) mmol/L BUN (9-20) mg/dL Creatinine (0.66-1.25) mg/dL Glucose (74-99) mg/dL POC Glucose (mg/dL) 165 H (75-99) mg/dL Magnesium 3.0 H (1.6-2.3) mg/dL Total Protein (6.3-8.2) g/dL Albumin (3.5-5.0) g/dL Microbiology - Last 24 Hours (Table) 09/01/18 09:55 Anaerobic Culture - Preliminary Pleural Fluid 09/01/18 09:55 Gram Stain - Preliminary Pleural Fluid Body Fluid Culture - Preliminary 08/31/18 15:21 Blood Culture - Preliminary Blood No Growth after 48 hours 08/31/18 15:20 Blood Culture - Preliminary Blood No Growth after 48 hours Assessment and Plan Assessment: Pneumonia, suspect gram-negative organism, present on arrival. Patient is currently on Levaquin and Zosyn and Vanco IV. Acute severe COPD exacerbation Acute respiratory failure: Patient was intubated. Metabolic encephalopathy Acute hypoxic respiratory failure severe, from underlying COPD Chronic nicotine dependence: Patient is still a cigarette smoker Metastasis, squamous cell lung cancer, awaiting treatment Persistent atrial fibrillation: Coumadin restarted Hyperlipidemia Hypercalcemia. Calcium is 9.8. Oncology is following and made aware. Calcitonin given Essential hypertension Primary osteoarthritis Right pleural effusion: Thoracentesis yesterday removing 1700mL pleural fluid. Cultures and cytology pending. Nausea: Zofran when necessary ordered Constipation: Dulcolax when necessary ordered, Colace discontinued GI prophylaxis Poor caloric intake: PICC line is being placed and TPN will be started. TPN is currently being held Recommendations and discussion Recommend continuing current medication and symptomatic management. Patient will be monitored in the ICU closely. Prognosis is extremely guarded. We'll continue with bronchodilators, steroids, and antibiotics at this time. Further recommendations to follow. Oncology and pulmonary are following closely.
[2018-09-03] MEDS ORDERED: PROPOFOL 1,000 MG in EMPTY BAG 1 BAG IV SCH (17:30)
[2018-09-03] MEDS ORDERED: 1: MVI, ADULT NO.4 WITH VIT K 10 ML, TRACE (CONC-1ML/DOSE) 1 ML, SODIUM ACETATE 30 MEQ, IV SCH ×5 (18:00)
[2018-09-03] MEDS ORDERED: AMIODARONE 300 MG in DEXTROSE 5% IN WATER 250 ML IV SCH ×2 (18:00)
[2018-09-03] MEDS: VANCOMYCIN 1,500 MG in SODIUM CHLORIDE 0.9% 250 ML IVPB SCH (19:09)
[2018-09-03 19:39] LABS: Glucose,Whole Blood 135 mg/dL (75-99)
[2018-09-03] MEDS: METOPROLOL SUCCINATE (ER) 50 MG TAB.ER.24H PO SCH (20:26)
[2018-09-03] MEDS: amLODIPine 5 MG TAB PO SCH (20:26)
[2018-09-03] MEDS: ATORVASTATIN 10 MG TAB PO SCH (20:48)
[2018-09-03 20:51] VITALS: TEMP 99
[2018-09-03 22:05] VITALS: PULSE 112; RESP 28
--- NOTE | 2018-09-04 22:55 | DS ---
DISCHARGE SUMMARY PRELIMINARY CAUSE OF : Metastatic squamous cell lung cancer. OTHER DIAGNOSES: 1. Chronic obstructive pulmonary disease acute exacerbation, acute hypoxic respiratory failure on mechanical ventilation. 2. Possible pneumonia gram-negative. 3. Metabolic encephalopathy, change in mental status, multifactorial. 4. History of nicotine dependence. 5. Persistent atrial fibrillation. 6. Hyperlipidemia. 7. Hypercalcemia. 8. Hypertension. 9. Degenerative joint disease. 10.History of right pleural effusion. 11.History of constipation. HISTORY OF PRESENT ILLNESS: This 83-year-old gentleman with a past medical history of multiple medical problems was admitted with features of COPD, acute exacerbation, pneumonia and as well as malignancy. The patient was treated symptomatically, but however the patient's condition worsened while in the hospital and the patient had to be transferred to ICU. Patient was intubated. The treatment of the malignancy could not be initiated at this time because of the poor general condition of the patient. The patient was seen by multiple consultants including Oncology and Cardiology and as well as pulmonology, Dr. Hood. Care was coordinated. The patient took a turn for the worse as mentioned earlier. Please refer to the previous dictations and as well as the multiple consultations and progress notes, staff notes for further details. The case at length was discussed with the family and the family decided to go with hospice care and the patient succumbed to his above-mentioned multiple complex medical issues. Once again the prognosis remained extremely guarded throughout the hospital stay, which was discussed with the patient on multiple occasions. MMSOHAILL / JULION: [id number] /
== END 2018-09-03 23:25 | disposition hospice, inpatient (51) | DRG 208 ==
LOC: EC 12:21 → 3SCARD 14:46 → 2SICU 08-30 11:18
PROVIDERS: ADMIT Hospitalist; ATTEND Hospitalist
PROC: 0W993ZX Drainage of Right Pleural Cavity, Percutaneous Approach, Diagnostic (ICD-10-PCS; 2018-09-01)
PROC: 02HV33Z Insertion of Infusion Device into Superior Vena Cava, Percutaneous Approach (ICD-10-PCS; 2018-09-02)
PROC: 5A1935Z Respiratory Ventilation, Less than 24 Consecutive Hours (ICD-10-PCS; 2018-09-03)
PROC: 0B9F8ZX Drainage of Right Lower Lung Lobe, Via Natural or Artificial Opening Endoscopic, Diagnostic (ICD-10-PCS; 2018-09-03)
PROC: 0BJ08ZZ Inspection of Tracheobronchial Tree, Via Natural or Artificial Opening Endoscopic (ICD-10-PCS; 2018-09-03)
PROC: 0BD68ZX Extraction of Right Lower Lobe Bronchus, Via Natural or Artificial Opening Endoscopic, Diagnostic (ICD-10-PCS; 2018-09-03)
PROC: 03HY32Z Insertion of Monitoring Device into Upper Artery, Percutaneous Approach (ICD-10-PCS; 2018-09-03)
PROC: 4A133B1 Monitoring of Arterial Pressure, Peripheral, Percutaneous Approach (ICD-10-PCS; 2018-09-03)
PROC: 4A133J1 Monitoring of Arterial Pulse, Peripheral, Percutaneous Approach (ICD-10-PCS; 2018-09-03)
PROC: 0BH18EZ Insertion of Endotracheal Airway into Trachea, Via Natural or Artificial Opening Endoscopic (ICD-10-PCS; principal; 2018-09-03 09:23)
DX: J15.6 Pneumonia due to other Gram-negative bacteria (principal); J96.21 Acute and chronic respiratory failure with hypoxia; G93.41 Metabolic encephalopathy; J96.22 Acute and chronic respiratory failure with hypercapnia; N17.0 Acute kidney failure with tubular necrosis; C34.91 Malignant neoplasm of unspecified part of right bronchus or lung; C79.9 Secondary malignant neoplasm of unspecified site; E87.0 Hyperosmolality and hypernatremia; I48.1 Persistent atrial fibrillation; J44.0 Chronic obstructive pulmonary disease with (acute) lower respiratory infection; J44.1 Chronic obstructive pulmonary disease with (acute) exacerbation; J91.0 Malignant pleural effusion; J98.11 Atelectasis; F17.210 Nicotine dependence, cigarettes, uncomplicated; R79.1 Abnormal coagulation profile; T45.515A Adverse effect of anticoagulants, initial encounter; Z51.5 Encounter for palliative care; Z66 Do not resuscitate; E78.5 Hyperlipidemia, unspecified; E83.52 Hypercalcemia; E87.5 Hyperkalemia; G62.9 Polyneuropathy, unspecified; H91.90 Unspecified hearing loss, unspecified ear; I10 Essential (primary) hypertension; I95.9 Hypotension, unspecified; R59.0 Localized enlarged lymph nodes; M19.90 Unspecified osteoarthritis, unspecified site; Z79.01 Long term (current) use of anticoagulants; Z79.899 Other long term (current) drug therapy; Z80.0 Family history of malignant neoplasm of digestive organs; Z85.828 Personal history of other malignant neoplasm of skin; Z86.14 Personal history of Methicillin resistant Staphylococcus aureus infection; Z90.2 Acquired absence of lung [part of]; M10.9 Gout, unspecified; Z88.0 Allergy status to penicillin; Z87.01 Personal history of pneumonia (recurrent); K59.00 Constipation, unspecified
CPT/HCPCS: 31624; 36415; 36573; 71045; 71046; 71260; 76604; 80048; 80053; 80162; 80202; 81001; 82040; 82330; 82805; 82945; 83605; 83615; 83735; 83880; 84100; 84155; 84157; 84450; 84460; 84478; 84484; 85025; 85027; 85379; 85610; 85730; 87040; 87070; 87075; 87086; 87102; 87116; 87205; 87206; 87252; 87496; 87498; 87502; 87529; 87634; 87798; 88108; 88305; 88341; 88342; 89050; 93005; 93306; 94002; 94640; 94667; 94668; 94760; 96365; 96375; 99285

== ENCOUNTER 2018-09-04 00:11 | Inpatient (IN) | payer BC, MEDICAID, MEDICARE ==
[2018-09-04] MEDS ORDERED: LORazepam 2 MG/ML INJ IV PRN (00:14)
[2018-09-04] MEDS ORDERED: MORPHINE SULFATE 2 MG/ML SYRINGE IVP ONE (00:14)
[2018-09-04] MEDS ORDERED: ATROPINE OPHTH SOLN 1% 5ML BTL SUBLINGUAL PRN (00:14)
[2018-09-04] MEDS ORDERED: SCOPOLAMINE 1.5MG/72HR PATCH TRANSDERM SCH (00:15)
[2018-09-04] MEDS ORDERED: MORPHINE SULFATE (100 MG/2 ML) 100 MG in SODIUM CHLORIDE 0.9% 100 ML IV SCH (00:30)
== END 2018-09-04 06:14 | disposition expired | DRG 951 ==
LOC: 2SICU 00:11
PROVIDERS: ADMIT Internal Medicine; ATTEND Internal Medicine
DX: Z51.5 Encounter for palliative care (principal); J15.6 Pneumonia due to other Gram-negative bacteria; J44.1 Chronic obstructive pulmonary disease with (acute) exacerbation; J44.0 Chronic obstructive pulmonary disease with (acute) lower respiratory infection; I48.1 Persistent atrial fibrillation; C34.90 Malignant neoplasm of unspecified part of unspecified bronchus or lung; C79.9 Secondary malignant neoplasm of unspecified site; Z88.0 Allergy status to penicillin; F17.210 Nicotine dependence, cigarettes, uncomplicated; M10.9 Gout, unspecified; E87.5 Hyperkalemia; I10 Essential (primary) hypertension; Z79.01 Long term (current) use of anticoagulants; Z86.14 Personal history of Methicillin resistant Staphylococcus aureus infection; Z80.1 Family history of malignant neoplasm of trachea, bronchus and lung; Z80.0 Family history of malignant neoplasm of digestive organs; Z85.828 Personal history of other malignant neoplasm of skin; Z85.89 Personal history of malignant neoplasm of other organs and systems; Z79.899 Other long term (current) drug therapy; T45.515A Adverse effect of anticoagulants, initial encounter; M19.042 Primary osteoarthritis, left hand; M19.041 Primary osteoarthritis, right hand
CPT/HCPCS: 94003